=== PATIENT | male | born 1950 | race Caucasian/White ===

== ENCOUNTER → 2023-04-25 10:26 | Outpatient (BNVA) | payer MEDICARE, MEDICAID, SELFPAY | PROVIDERS: Family Provider Nurse Practitioner Family; PCP Nurse Practitioner Family; Visit Provider Nurse Practitioner Family | DX: I10 Essential (primary) hypertension (principal); Z12.5 Encounter for screening for malignant neoplasm of prostate | CPT/HCPCS: 80053; 80061; 84443; 85025; G0103 ==

== ENCOUNTER → 2023-05-02 11:25 | Outpatient (BNVA) | payer MEDICARE, SELFPAY | PROVIDERS: Family Provider Nurse Practitioner Family; PCP Nurse Practitioner Family; Referring Provider Nurse Practitioner Family; Visit Provider Internal Medicine Cardiovascular Disease | DX: R01.1 Cardiac murmur, unspecified (principal); Z01.818 Encounter for other preprocedural examination; F17.200 Nicotine dependence, unspecified, uncomplicated; I45.4 Nonspecific intraventricular block; I45.9 Conduction disorder, unspecified | CPT/HCPCS: 93005; 99204 ==

== ENCOUNTER 2023-05-16 11:01 | Outpatient (CLI) | payer MEDICARE, SELFPAY ==
--- NOTE | 2023-05-16 11:15 | USCV_ITS ---
Perfecto Hendrix Age: 72 Gender: M : 1950 Exam Date: 05/16/2023 11:10 Ordering Phys: Madison Villalobos MD ([email or web address]) Technologist: [place] [facility] [place]: chest pain BP: 132 / 73 HR: 69 Rhythm: Sinus Technical Quality: Technically difficult study MEASUREMENTS (Male / Female) Normal Values 2D ECHO LV Ejection Fraction MOD 2C 59.7 % LV Ejection Fraction 2C AL 61.0 % IVC Diameter 1.5 cm DOPPLER AV Peak Velocity 343.7 cm/s LVOT Peak Velocity 95.0 cm/s MV Area PHT 2.7 cm squared Mitral E to A Ratio 0.7 MV E' Velocity 36.0 cm/s Mitral E to MV E' Ratio 7.4 Mitral E to LV E' Lateral Ratio 6.0 Mitral E to LV E' Septal Ratio 9.9 TR Peak Velocity 163.0 cm/s TR Peak Gradient 10.6 mmHg FINDINGS Left Ventricle Normal left ventricular size, systolic function and wall thickness, with no regional wall motion abnormalities. Left ventricular ejection fraction is estimated at 65 %. Normal diastolic function. Right Ventricle Normal right ventricular size and systolic function. RVSP could not be calculated due to incomplete tricuspid regurgitation velocity profile. Right Atrium Normal right atrial size. Left Atrium Normal left atrial size. Mitral Valve Mild mitral annular calcification. No mitral valve stenosis. No mitral valve regurgitation. Aortic Valve Aortic valve not well visualized. Possibly moderate aortic valve stenosis, peak velcity 3 m/s, peak gradient 36 mm Hg, mean gradient 19 mmHg. DVI= 0.30. Mild aortic valve regurgitation. Tricuspid Valve Structurally normal tricuspid valve. No tricuspid valve regurgitation. No significant tricuspid valve regurgitation. Pulmonic Valve Pulmonic valve not well visualized. Pericardium No pericardial effusion. Aorta Aorta not well visualized. IVC Normal IVC dimension with >50% respiratory change of the inferior vena cava. CONCLUSIONS 1. This is a difficult study with no parasternal windows. 2. Normal left ventricular size, systolic function and wall thickness, with no regional wall motion abnormalities. Left ventricular ejection fraction is estimated at 65 %. Normal diastolic function. 3. Possibly moderate aortic valve stenosis, peak velcity 3 m/s, peak gradient 36 mm Hg, mean gradient 19 mmHg. DVI= 0.30. Mild aortic valve regurgitation. 4. No prior similar studies to compare. Madison Villalobos MD (Electronically Signed) Final Date: 21 May 2023 09:18 S
--- NOTE | 2023-05-16 12:15 | CT_ITS ---
WS: [id number] LDCT LUNG CANCER SCREENING TECHNIQUE: Noncontrast CT of the chest with coronal and sagittal reformatted images. CLINICAL INFORMATION: H53.9 - Unspecified visual disturbance COMPARISON: None. DLP: 72.40 mGy.cm DIvol: Mean CTDIvol: 1.40 (mGy) All CT scans at [facility] use at least one of these dose optimization techniques: automat ed exposure control; mA and/or kV adjustment per patient size (includes targeted exams where dose is matched to clinical indication); or iterative reconstruction. FINDINGS: Bronchiectasis RIGHT middle lobe and RIGHT lower lobe. Mild chronic emphysematous changes. Hypertrophic changes thoracic spine. Aortic calcification. Normal caliber thoracic aorta. No mediastinal or hilar lymphadenopathy. No axil teja lymphadenopathy. Small hepatic cysts in the liver. Normal GE junction. RIGHT adrenal calcification. Adrenal glands are normal. IMPRESSION: CT/CT lung screening [id number] LUNG-RADS: 1-Negative FOLLOW UP: 12 Month: Continue annual screening with LDCT
== END 2023-05-16 11:02 | disposition home or self-care (01) ==
LOC: RAD 11:01
PROVIDERS: Family Provider Nurse Practitioner Family; PCP Nurse Practitioner Family; Visit Provider Nurse Practitioner Family
DX: Z12.2 Encounter for screening for malignant neoplasm of respiratory organs (principal); F17.200 Nicotine dependence, unspecified, uncomplicated; H53.9 Unspecified visual disturbance; R01.1 Cardiac murmur, unspecified; R07.9 Chest pain, unspecified; I10 Essential (primary) hypertension
CPT/HCPCS: 71271; 93306

== ENCOUNTER → 2023-10-24 11:17 | Outpatient (BNVA) | payer MEDICARE, SELFPAY | PROVIDERS: Family Provider Nurse Practitioner Family; PCP Nurse Practitioner Family; Visit Provider Nurse Practitioner Family | DX: I35.0 Nonrheumatic aortic (valve) stenosis (principal) | CPT/HCPCS: 99214 ==

== ENCOUNTER 2023-12-13 20:36 | Emergency (ER) | payer MEDICARE, SELFPAY ==
[2023-12-13 20:37] VITALS: BP 121/71; PULSE 96; RESP 18; TEMP 36.3; O2SAT 95
--- NOTE | 2023-12-13 20:43 | W.ED.EXTPRO ---
HPI - Extremity Problem General: Chief complaint: Extremity Problem,Nontraumatic Stated complaint: right leg swollen hot pain Time Seen by Provider: 12/13/23 20:37 Source: patient Mode of arrival: wheelchair Limitations: no limitations History of Present Illness: Patient is a 73-year-old male presents to ED today for evaluation of swelling to his right lower extremity mainly around his calf over the past week or so. Patient is not sure if he bumped it on something . He has not noticed any bruising. He has no previous history of DVT. He has not noticed any color/temperature changes to the extremity. MD Complaint: extremity pain Onset (ago): day(s) Pain Consistency: constant Location: right and lower extremity Radiation: none Relieving factors: nothing Exacerbating factors: weight bearing and walking Associated symptoms: Reports no associated symptoms; Deny chest pain, fever(s) or rash Review of Systems Const: Denies: fever(s), chills, body aches, fatigue or malaise Card: Denies: chest pain Resp: Denies: dyspnea or hemoptysis GI: Denies: abdominal pain Musc: Reports: extremity pain and extremity swelling; Denies: neck pain, back pain, joint pain, joint swelling, joint redness, joint warmth, joint stiffness, limited range of motion, muscle cramps or muscle weakness Skin/Breast: Denies: rash Neuro: Denies: numbness in extremities, weakness in extremities, sensory changes or difficulty walking [facility] ED PFSH: Medical History Aortic stenosis IVCD (intraventricular conduction defect) Physical Exam Const: COMMON NORMALS: no acute distress, average body habitus, patient oriented x3, no limitations, alert and well nourished GENERAL APPEARANCE: cooperative ORIENTATION/CONSCIOUSNESS: Yes awake, Yes oriented to person, Yes oriented to place and Yes oriented to time Resp: COMMON NORMALS: normal respiratory effort and clear to auscultation bilaterally AUSCULTATION: clear to auscultation bilaterally Cardio: COMMON NORMALS: regular rate and regular rhythm RATE: regular rate RHYTHM: regular rhythm GI: COMMON NORMALS: Normal to inspection, nondistended, normoactive bowel sounds present, Soft to palpation, non-tender and no masses INSPECTION: Yes normal to inspection PALPATION: Yes Soft to palpation Extremity: COMMON NORMALS: full ROM, capillary refill normal and no joint enlargement GENERAL: Yes normal exam except as noted RIGHT LOWER EXTREMITY: Yes lower leg OTHER: swelling noted to R lower leg/calf when compared to L; TTP; no erythema/warmth; no palpable cords; distal pulses and cap refill and sensation are all intact; equivocal Ashvin's; calf circumference of R 14.5 cm; calf circumference of L 13.0 cm Neuro: COMMON NORMALS: patient oriented x3, moves all extremities, no focal motor deficits and no sensory deficits noted SENSORIUM/ORIENTATION: Yes alert, Yes oriented to person, Yes oriented to place and Yes oriented to time Skin: COMMON NORMALS: no rashes or lesions noted GENERAL SKIN EXAM: no rashes or lesions noted Course Vital Signs: Vital signs: Vital Signs Temperature 97.3 F L 12/13/23 20:37 Pulse Rate 91 12/13/23 21:30 Respiratory Rate 16 12/13/23 20:51 Blood Pressure 119/79 12/13/23 21:30 Pulse Oximetry 92 12/13/23 21:30 Oxygen Delivery Me thod Room Air 12/13/23 21:30 MDM - Extremity (Nontraumatic) Medical Decision Making Spoke to technical rep who performed venous US. Patient does have an acute DVT to his right lower extremity. He has no chest pain, shortness of breath, or difficulty breathing. Vitals are stable. At this time patient will be started on Eliquis. He was recommended to follow-up with his primary care provider soon as possible so they can go over length of treatment. Return ED precautions given. Medical Records I reviewed the patient's medical records. XR interpretation done by ED provider, pending radiology final review (US tech reporting acute DVT to R LE) Discharge Plan Discharge Patient Disposition: Home Clinical Impression: Right leg DVT Qualifiers: Affected thrombotic vein of extremity: unspecified lower extremity distal vein Chronicity: acute Qualified Code(s): I82.4Z1 - Acute embolism and thrombosis of unspecified deep veins of right distal lower extremity Condition: Stable Prescriptions: New Eliquis 5 mg tablet 5 mg PO BID Qty: 74 0RF Rx Instructions: Take two tabs (10mg) PO BID x 7 days then one tab (5mg) PO BID thereafter Discharge Orders: Discharge ED (Routine); Ordered 12/13/23 Ordered By: Aury Ballesteros Referrals: Caitlyn Corbin FNP-C [Primary Care Provider] - Ligia Zambrano FNP [Nurse Practitioner] - Patient Instructions: Apixaban (By mouth) (Eliquis), Deep Vein Thrombosis (DC) Activity Restrictions/Additional Instructions: As we discussed you were diagnosed with a blood clot/DVT to your right lower leg. You have been started on Eliquis. You were given a dose prior to discharge and you need to fill your prescription tomorrow and begin taking as directed. As we discussed I would like you to follow-up with your primary care provider later this week for further evaluation so she can go over length of treatment. As we discussed you need to return to the emergency department for onset of chest pain, shortness of breath, difficulty breathing, shortness of breath with minimal exertion, coughing up blood, passing out episodes, or any other concerns you may have. Coding Level of Care Code ED Baling Machine Operator for Cristhian Guallpa
--- NOTE | 2023-12-13 20:49 | USR_ITS ---
PROCEDURE INFORMATION: Exam: US Duplex Right Lower Extremity Veins, Limited Exam date and time: 12/13/2023 9:36 PM Age: 73 years old Clinical indication: Leg, lower; Patient HX: Right calf pain and swelling x 2 weeks. No known trauma. No history of dvt per patient. ; Additional info: Calf pain/swelling TECHNIQUE: Imaging protocol: Real-time duplex ultrasound of the right extremity with 2-D acosta scale, color Doppler flow and spectral waveform analysis including responses to compression and other maneuvers (when performed) with image documentation. Limited exam was focused on the right lower extremity veins. COMPARISON: No relevant prior studies available. FINDINGS: Right deep veins: Right posterior tibial veins in the calf are compressible. No color flow. Partially occlusive thrombus is identified in the right popliteal vein. Color flow is seen centrally in the lumen with a phasic waveform but there seems to be hypoechoic thrombus present which is partially occlusive. The right femoral vein is patent. Superficial veins: Greater saphenous vein at the saphenofemoral junction is patent without thrombus. Soft tissues: No significant finding. US/[place] [id number] IMPRESSION: 1. Positive for right lower extremity deep vein thrombosis. 2. Partially occlusive right popliteal vein thrombus as well as occlusive thrombus in the right posterior tibial and peroneal veins of the calf.
[2023-12-13 20:51] VITALS: BP 124/77; PULSE 96; RESP 16; O2SAT 93
[2023-12-13 21:27] VITALS: BP 124/77; O2SAT 92
[2023-12-13 21:30] VITALS: BP 119/79; PULSE 91; O2SAT 92
[2023-12-13] MEDS: apixaban 5 mg Tablet 10 MG PO (22:02)
== END 2023-12-13 22:15 | disposition home or self-care (01) ==
PROVIDERS: Emergency Provider Physician Assistant; PCP Nurse Practitioner Family
DX: I82.4Z1 Acute embolism and thrombosis of unspecified deep veins of right distal lower extremity (principal)
CPT/HCPCS: 93971; 99284

== ENCOUNTER → 2024-01-16 09:20 | Outpatient (BNVA) | payer MEDICARE, SELFPAY | PROVIDERS: PCP Nurse Practitioner Family; Visit Provider Nurse Practitioner Family | DX: I82.4Z1 Acute embolism and thrombosis of unspecified deep veins of right distal lower extremity (principal); F17.200 Nicotine dependence, unspecified, uncomplicated | CPT/HCPCS: 80053; 80061; 84443; 85025 ==

== ENCOUNTER 2025-01-19 13:21 | Emergency (ER) | payer MEDICARE, SELFPAY ==
[2025-01-19 13:30] VITALS: BP 127/76; PULSE 92; RESP 24; TEMP 36.4; O2SAT 92; BMI 21.9
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
[2025-01-19 13:54] LABS: Hematocrit 44.0 % (37-53); Hemoglobin 14.40 g/dL (11.27-16.99); Mean Corpuscular HGB Conc 32.7 g/dL (30-55); Mean Corpuscular Hemoglobin 30.4 pg (27-33); Mean Corpuscular Volume 93.0 fl (82-101); Nucleated Red Blood Cells % 0 %; Platelet Count 348 10^3/cmm (157-399); Red Blood Count 4.73 10^6/uL (3.85-5.65); White Blood Count 10.72 10^3/uL (3.29-11.43)
[2025-01-19] MEDS: tetanus-dipt-pertussis 0.5 mL SDV IM (14:05)
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
[2025-01-19 14:09] LABS: Alanine Aminotransferase 174 U/L (0-41); Albumin Level 3.7 g/dL (3.5-5.2); Alkaline Phosphatase 93 U/L (40-130); Anion Gap 16.6 (5-19); Aspartate Amino Transferase 244 U/L (0-40); Blood Urea Nitrogen 21 mg/dL (8-23); Carbon Dioxide 31 mmol/L (22-29); Chloride 95 mmol/L (98-107); Creatinine Clr Calc Pharmacy 60.5369; Globulin 3.9 g/dL (1.3-4.6); Glucose 138 mg/dL (65-115); Osmolality Calculated 291 mOsm/kg (285-295); Potassium 4.6 mmol/L (3.5-5.1); Sodium 138 mmol/L (136-145); Total Protein 7.6 g/dL (6.6-8.7)
[2025-01-19 14:12] LABS: Calcium 13.7 mg/dL (8.5-10.5)
--- NOTE | 2025-01-19 14:12 | ECG_ITS ---
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
[2025-01-19 14:17] VITALS: BP 99/64; PULSE 89; O2SAT 90
[2025-01-19] MEDS: calcitonin,salmon 200 unit/mL SDV 2mL 280 UNIT SUBCUT (14:39)
[2025-01-19 15:12] VITALS: RESP 24; O2SAT 91
[2025-01-19] MEDS: fentaNYL 50 mcg/mL INJ 2mL 25 MCG IVP (15:12)
[2025-01-19 15:46] VITALS: BP 110/71; PULSE 87; O2SAT 90
[2025-01-19 16:14] LABS: Glucose Urine UA Negative (Normal); Nitrate Urine Negative (Negative)
[2025-01-19 16:17] LABS: Add Urine Microscopic? YES
[2025-01-19 16:19] LABS: Specific Gravity, Urine 1.044 (1.005-1.030)
[2025-01-19 17:42] VITALS: BP 110/71; PULSE 87; RESP 21; O2SAT 92
== END 2025-01-19 17:47 ==
PROVIDERS: Emergency Provider Family Medicine; PCP Clinical Nurse Specialist Adult Health
DX: J93.9 Pneumothorax, unspecified (principal); S32.049A Unspecified fracture of fourth lumbar vertebra, initial encounter for closed fracture; S22.41XA Multiple fractures of ribs, right side, initial encounter for closed fracture; S22.081A Stable burst fracture of T11-T12 vertebra, initial encounter for closed fracture; R91.8 Other nonspecific abnormal finding of lung field; V03.10XA Pedestrian on foot injured in collision with car, pick-up truck or van in traffic accident, initial encounter; F17.210 Nicotine dependence, cigarettes, uncomplicated; Z85.828 Personal history of other malignant neoplasm of skin
CPT/HCPCS: 36415; 70450; 71045; 71260; 72125; 74177; 80053; 81001; 85025; 86850; 86900; 90715; 93005; 93010; 96372; 96374; 99285; J0630; J3010; J7030

== ENCOUNTER 2025-02-19 06:38 | Inpatient (IN) | payer MEDICARE, SELFPAY ==
[2025-02-19] VITALS (12 sets, daily range): BP systolic 94–107; BP diastolic 62–78; PULSE 98–110; RESP 16–31; TEMP 36.6–36.9; O2SAT 90–96; BMI 17.1; BMI 17.6
--- NOTE | 2025-02-19 06:40 | ECG_ITS ---
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 Measurements Intervals [place] Rate: 97 P: 62 WI: 146 QRS: 77 QRSD: 150 T: 52 QT: 375 QTc: 478 Interpretive Statements SINUS RHYTHM RIGHT BUNDLE BRANCH BLOCK [120+ ms QRS DURATION, UPRIGHT V1, 40+ ms S IN I/aVL/V4/V5/V6] Compared to ECG 01/19/2025 14:12:16 Right bundle-branch block now present Intraventricular conduction delay no longer present Electronically Signed On 02-19-2025 09:17:51 CDT by Ramses Kapoor M.D. [email or web address]
--- NOTE | 2025-02-19 06:42 | XRR_ITS ---
PROCEDURE INFORMATION: Exam: XR Chest Exam date and time: 02/19/2025 6:46 AM Age: 74 years old Clinical indication: Dyspnea and shortness of breath; Additional info: Dyspnea/cough TECHNIQUE: Imaging protocol: Radiologic exam of the chest. Views: 1 view. COMPARISON: CT chest abdpel w/*[id number] 01/19/2025 1:55 PM FINDINGS: Lungs: Persistent complete opacification of the right upper lobe. Small right pleural effusion with adjacent atelectasis is again seen. Pneumonia should be considered in the adequate clinical setting. Left lung is clear. No clear evidence of pneumothorax. Pleural spaces: See Lungs finding. Heart/Mediastinum: Stable cardiomediastinal silhouette. Bones/joints: Degenerative changes of the spine seen. XR/XR chest 1V portable [id number] IMPRESSION: 1. Unchanged complete opacification of the right upper lobe. 2. Persistent small right pleural effusion with adjacent airspace opacities, which may represent atelectasis or pneumonia in the adequate clinical setting.
--- OUTSIDE RECORDS SUMMARY | 2025-02-19 06:49 | XMS_ITS | Clinical Summary ---
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 Received in a container of formalin labeled Ruma -lymph node, FNA station 4R/mass is an aggregate of soft tissue, 2.5 x 1 x 0 0.3 x 0.1 cm. The specimen is submitted entirely in A1. B. Received in a container of formalin labeled Lambert -lung, RUL mass EB BX is an aggregate of soft tissue, 0.4 x 0.3 x 0.1 cm. The specimen is submitted entirely in B1. Jenny Fields 5 8:44 AM [facility] MICROSCOPIC DESCRIPTION Immunohistochemical stains for antibodies to AE1/AE3, CK7, CK20, p40, and TTF-1 are performed on A1 the tumor cells are positive for AE1/AE3, CK7 (subset), and p40, and are negative for CK20 and TTF-1. 5 8:44 AM [facility] OPERATIVE PROCEDURE 1: BRONCHOSCOPY 2: BRONCHOSCOPY WITH EBUS INCLUDING FLUOROSCOPIC GUIDANCE 5 8:44 AM [facility] COMMENT The [employer] voice-activated dictation system may have been used in the creation of this report. Inherent to this system is the possibility of errors in syntax, grammar, punctuation, or other areas that could impact interpretation. If there are interpretive questions about the report, please contact the performing pathologist. Unless gross only is specified in the diagnosis, the microscopic examination substantiates the above cited diagnosis. The performance characteristics of all immunohistochemical stains cited in this report (if any) were determined by the Diagnostic Immunohistochemistry Laboratory of [facility] in compliance with CLIA'88 regulations. Some of these tests rely on the use of analyte specific reagents and are subject to specific labeling requirements by the FDA. All controls show appropriate reactivity. This testing was developed by the [facility]ohist[facility] of [facility]. It has not been cleared or approved by the FDA. The FDA has determined that such clearance or approval is not necessary. 8:44 AM CDT [facility] Tissue ENTIRE LYMPH NODE / Unknown Collection / Unknown 01/23/2025 9:10 AM CDT 01/23/2025 11:11 AM CDT Comment:Verified by TB/JK No primary care provider on file. Tissue specimen (specimen) SPECIMEN FROM LUNG / Unknown 01/23/2025 9:30 AM CDT 01/23/2025 11:11 AM CDT Comment:Verified by TB/JK No primary care provider on file. us Ariana Carpio MD PATHOLOGY/CYTO LOGY ORDERABLES Final Result [facility] CLIA # [id number] [address] [place] [id number] * [place] ANES INSERT ENDOTRACHEAL AIRWAY (01/23/2025 8:58 AM CDT) Narrative Fani Goss CRNA - 01/23/2025 8:58 AM CDT Fani Goss CRNA 01/23/2025 9:08 AM Airway Date/Time: 01/23/2025 8:58 AM Location: OR Plan: routine intubation Patient Identity Confirmed by: Verbally with patient and armband Airway: not difficult Staffing Performed: SPECIALIST ICU/CAA Authorized by: Justus Gomez MD Performed by: Fani Goss CRNA County Court Judge: Justus Gomez MD Indications and Patient Condition: Indications for Airway Management: Anesthesia Sedation Level: general anesthesia Preoxygenated: yes Patient Position: Sniffing Mask Difficulty Assessment: 2 - vent by mask + OA or adjuvant +/- NMBA Oral Airway: 100mm Plan to extubate at end of case: Yes Final Airway Details: Final Airway Type: Endotracheal airway ETT Cuffed: Yes Technique Used for Successful ETT Placement: Direct laryngoscopy Devices/Methods Used in Placement: Intubating stylet Blade Type: straight blade Blade Size: 2 Insertion Site: Oral ETT Size (mm): 8.0 Measured from: Teeth Tube secured with: Tape Placement Verified by: auscultation, end tidal CO2 and chest rise Cormack-Lehane Classification: Grade I - full view of glottis Number of Attempts at Approach: 1 Additional Procedure Information: atraumatic us Justus Gomez MD PROCEDURE/MINOR SURGIC AL ORDERABLES Final Result * XR THORACOLUMBAR SPINE 1 VW (01/22/2025 2:27 PM CDT) Anatomical Region Laterality Modality Spine Computed Radiogr aphy 01/22/2025 2:27 PM CDT Impressions 01/22/2025 2:31 PM CDT IMPRESSION: Mild anterolisthesis of L4-5. He will body heights appear grossly maintained. Vertebral body fractures better seen on prior CT. Narrative 01/22/2025 2:31 PM CDT Exam: XR THORACOLUMBAR SPINE 1 VW Date/Time of Exam: 01/22/2025 2:27 PM Reason For Exam: Fracture. Diagnosis: Blunt trauma to chest, initial encounter; Lung mass; Closed fracture of multiple ribs of right side, initial encounter; Hydropneumothorax; Closed fracture of twelfth thoracic vertebra, unspecified fracture morphology, initial encounter ([facility]). Comparison: January 19. Procedure Note Marty De León MD - 01/22/2025 Exam: XR THORACOLUMBAR SPINE 1 VW Date/Time of Exam: 01/22/2025 2:27 PM Reason For Exam: Fracture. Diagnosis: Blunt trauma to chest, initial encounter; Lung mass; Closed fracture of multiple ribs of right side, initial encounter; Hydropneumothorax; Closed fracture of twelfth thoracic vertebra, unspecified fracture morphology, initial encounter ([facility]). Comparison: January 19. IMPRESSION: Mild anterolisthesis of L4-5. He will body heights appear grossly maintained. Vertebral body fractures better seen on prior CT. Zina Jack [employer] DIAGNOSTIC IMAGING ORDERA BLES Final Result * (ABNORMAL) POC GLUCOSE (01/20/2025 6:57 PM CDT) Only the most recent of4 resultswithin the time period is included. GLUCOSE POC 115(H) 74 - 99 mg/dL 01/20/2025 6:57 PM CDT [facility] SPECIMEN SOURCE, GLUCOSE POC Capillary 01/20/2025 6:57 PM CDT [facility] Blood, whole 01/20/2025 6:57 PM CDT 01/21/2025 9:41 AM CDT Andrew Lam DO POINT OF CARE TESTING Final Resu lt [facility] CLIA # [id number] [address] [place], [place] [address] * ECHO COMPLETE - CONTRAST AND STRAIN IF INDICATED (01/20/2025 1:13 PM CDT) [facility] EJECTION FRACTION 65 INTERFACE SYSTEM 01/20/2025 12:1 9 PM CDT Narrative INTERFACE SYSTEM - 01/20/2025 5:57 PM CDT [facility] Echocardiography Laboratory [address] [place] [address] Transthoracic Echocardiography Patient: Perfecto Hendrix Study ID: ECHO COMPLETE - L Gender: M : 1950 Age: 74 Room: [facility] Study 01/20/2025 Pt Inpatient Date: Status: Study 12:19:12 PM [facility] #: [id number] Time: Ordering:Andrew Lam ([facility]) Cotton Roll Packer: Lasha Martinez [facility] Transcribing Machine Mechanic:TitaDilia monk Indications and History: murmur, trauma. Summary and Conclusion: - Left ventricle: The cavity size is normal. Wall thickness is normal. Global systolic function is normal. For Epic reporting: the left ventricular ejection fraction is 65% by visual assessment. No diagnostic regional wall motion abnormality identified. Diastolic function is indeterminate. - Right ventricle: The cavity size is normal. Systolic function is normal. Systolic pressure is not obtained. - Aortic valve: The leaflets are thickened and calcified. There is moderate to severe stenosis. There is trivial to mild regurgitation. The peak systolic velocity is 305.61cm/sec. The mean systolic gradient is 27mm Hg. Aortic valve area by VTI method is 1.0 cm2. DVI 0.27. - Mitral valve: The annulus is moderately to severely calcified. The leaflets are mildly thickened and mildly calcified. - Tricuspid valve: There is trivial to mild regurgitation. Comparison: No previous study was available for comparison. Procedure information: No prior study is available for comparison. Study status: Routine. Procedure: A transthoracic echocardiogram was performed. Image quality was adequate. The study was technically limited due to poor acoustic window availability. Scanning was performed from the parasternal, apical, subcostal, and suprasternal notch acoustic windows. Study components: M-mode, 2D, complete spectral Doppler, and color Doppler. Height: 177.8cm. Height: 70in. Weight: 69.7kg. Weight: 153.7lb. BMI: 22kg/m^2. BSA: 1.85m^2. Blood pressure: 110/60 Study date: 01/20/2025. Study time: 12:19 PM. Location: ICU/CCU Cardiac Anatomy: LEFT VENTRICLE: The cavity size is normal. Wall thickness is normal. Global systolic function is normal. For Epic reporting: the left ventricular ejection fraction is 65% by visual assessment. No diagnostic regional wall motion abnormality identified. Diastolic function is indeterminate. RIGHT VENTRICLE: The cavity size is normal. Systolic function is normal. Systolic pressure is not obtained. LEFT ATRIUM: The atrium is normal in size. RIGHT ATRIUM: The atrium is normal in size. ATRIAL SEPTUM: No obvious PFO or ASD identified by 2D imaging and color Doppler. AORTIC VALVE: Not well visualized. The leaflets are thickened and calcified. Mobility is restricted. There is moderate to severe stenosis. There is trivial to mild regurgitation. MITRAL VALVE: The annulus is moderately to severely calcified. The leaflets are mildly thickened and mildly calcified. There is no evidence for stenosis. There is no significant regurgitation. TRICUSPID VALVE: Structurally normal valve. Mobility is unrestricted. There is no evidence for stenosis. There is trivial to mild regurgitation. PULMONIC VALVE: Not well visualized. The valve appears to be grossly normal. There is no evidence for stenosis. There is no significant regurgitation. PERICARDIUM: There is no pericardial effusion. AORTA: Aortic root: The root is not dilated. Aortic arch: The vessel is not dilated. Measurements Left ventricle Value LVOT continued Value KELLY, LAX 3.6 cm SV 49 ml ESD, LAX 2.7 cm Qs 11.4 L/min KELLY/bsa, LAX 1.9 cm/m^2 Qs/bsa 6.1 L/(min-m^2) ESD/bsa, LAX 1.5 cm/m^2 SV/bsa 27 ml/m^2 FS, LAX 25 % FS, LAX chord 25 % Right ventricle Value ESD major ax, A4C 5.4 cm KELLY, LAX 3.0 cm ESD/bsa major ax, A4C 2.9 cm/m^2 KELLY 3.0 cm KELLY minor ax, A4C 5.4 cm TAPSE, 2D 1.9 cm KELLY/bsa minor ax, A4C 2.9 cm/m^2 TAPSE, MM 1.9 cm KELLY major ax, A2C 7.5 cm S' lateral 4.8 cm/sec KELLY/bsa major ax, A2C 4.0 cm/m^2 IVS, ED 1.7 cm Left atrium Value ESD 2.7 cm AP dim, ES 3.1 cm ESD/bsa 1.5 cm/m^2 AP dim index, ES 1.7 cm/m^2 FS 25 % SI dim, A4C 6.1 cm PW, ED 1.3 cm Area ES, A4C 17 cm^2 IVS/PW, ED 1.34 Vol, ES, 1-p A4C 35 ml EDV 55 ml Vol/bsa, ES, 1-p A4C 19 ml/m^2 ESV 27 ml Vol, ES, A/L 39 ml EF 50 % Vol/bsa, ES, A/L 21 ml/m^2 SV 27 ml EDV/bsa 30 ml/m^2 Right atrium Value ESV/bsa 15 ml/m^2 Area, ES 12 cm^2 SV/bsa 15 ml/m^2 Area, ES, A4C 12 cm^2 SV, 1-p A2C 28 ml SV/bsa, 1-p A2C 15 ml/m^2 Aortic valve Value EDV, 1-p A4C 104 ml ISRAEL, plan 0.92 cm^2 ESV, 1-p A4C 17 ml ISRAEL/bsa, plan 0.5 cm^2/m^2 EF, 1-p A4C 83 % Peak v, S 305.61 cm/sec SV, 1-p A4C 87 ml VTI, S 49.9 cm EDV/bsa, 1-p A4C 56 ml/m^2 Mean grad, S 27 mm Hg ESV/bsa, 1-p A4C 9 ml/m^2 Peak grad, S 37 mm Hg SV/bsa, 1-p A4C 47 ml/m^2 LVOT/AV, VTI ratio 0.33 EDV, MM Teich. 55 ml ISRAEL, VTI 0.99 cm^2 EF, MM Teich. 50 % ISRAEL/bsa, VTI 0.53 cm^2/m^2 EDV/bsa, MM Teich. 30 ml/m^2 LVOT/AV, Vpeak ratio 0.27 EF, MM on 2D Teich. 50 % ISRAEL, Vmax 0.82 cm^2 E', lat mari, TDI 5.7 cm/sec ISRAEL/bsa, Vmax 0.44 cm^2/m^2 E/e', lat mari, TDI 7 E', med mari, TDI 4.2 cm/sec Mitral valve Value E/e', med mari, TDI 10 Peak E 41.68 cm/sec E', avg, TDI 4.9 cm/sec Peak A 69.19 cm/sec E/e', avg, TDI 8 Decel slope 226.88 cm/s^2 Decel time 184 ms LVOT Value Peak E/A ratio 0.6 Diam, S 2.0 cm Vena contracta width 3.0 cm Area 3.0 cm^2 Peak bladimir, S 83.17 cm/sec Aortic root Value VTI, S 16.4 cm Root diam 2.5 cm Peak grad, S 3 mm Hg Root diam/bsa 1.3 cm/m^2 Legend: (L) and (H) daphne values outside specified reference range. [facility] are accredited with the Intersocietal Accreditation Commission - Echocardiography. Prepared and Electronically Authenticated Franklin Trimble Confirmed 01/20/2025 17:57 Procedure Note Franklin Trimble MD - 01/20/2025 [facility] Echocardi[facility] Laboratory [address] [place] [id number] Transthoracic Echocardiography Patient: Perfecto Hendrix Study ID: ECHO COMPLETE- L Gender: Mukesh : 1950 Age: 74 Room: [facility] Study 01/20/2025 Pt Inpatient Date: Status: Study 12:19:12 PM CSN #: [id number] Time: Ordering:Andrew Lam ([facility]) Cotton Roll Packer: Lasha Martinez [facility] Transcribing Machine Mechanic:Dilia Pradhan Indications and History: murmur, trauma. Summary and Conclusion: - Left ventricle: The cavity size is normal. Wall thickness is normal.Global systolic function is normal. For Epic reporting: the left ventricular ejection fraction is 65% by visual assessment. No diagnostic regionalwall motion abnormality identified. Diastolic function is indeterminate. - Right ventricle: The cavity size is normal. Systolic function isnormal. Systolic pressure is not obtained. - Aortic valve: The leaflets are thickened and calcified. There ismoderate to severe stenosis. There is trivial to mild regurgitation. The peaksystolic velocity is 305.61cm/sec. The mean systolic gradient is 27mm Hg.Aortic valve area by VTI method is 1.0 cm2. DVI 0.27. - Mitral valve: The annulus is moderately to severely calcified. Theleaflets are mildly thickened and mildly calcified. - Tricuspid valve: There is trivial to mild regurgitation. Comparison: No previous study was available for comparison. Procedure information: No prior study is available for comparison.Study status: Routine. Procedure: A transthoracic echocardiogram wasperformed. Image quality was adequate. The study was technically limited due topoor acoustic window availability. Scanning was performed from theparasternal, apical, subcostal, and suprasternal notch acoustic windows.Study components: M-mode, 2D, complete spectral Doppler, and color Doppler. Height: 177.8cm. Height: 70in. Weight: 69.7kg. Weight: 153.7lb.BMI: 22kg/m^2. BSA: 1.85m^2. Blood pressure: 110/60 Study date: 01/20/2025. Study time: 12:19 PM. Location: ICU/CCU Cardiac Anatomy: LEFT VENTRICLE: The cavity size is normal. Wall thickness is normal.Global systolic function is normal. For Epic reporting: the left ventricularejection fraction is 65% by visual assessment. No diagnostic regional wall motion abnormality identified. Diastolic function is indeterminate. RIGHT VENTRICLE: The cavity size is normal. Systolic function isnormal. Systolic pressure is not obtained. LEFT ATRIUM: The atrium is normal in size. RIGHT ATRIUM: The atrium is normal in size. ATRIAL SEPTUM: No obvious PFO or ASD identified by 2D imaging and color Doppler. AORTIC VALVE: Not well visualized. The leaflets are thickened andcalcified. Mobility is restricted. There is moderate to severe stenosis. Thereis trivial to mild regurgitation. MITRAL VALVE: The annulus is moderately to severely calcified. Theleaflets are mildly thickened and mildly calcified. There is no evidence forstenosis. There is no significant regurgitation. TRICUSPID VALVE: Structurally normal valve. Mobility isunrestricted. There is no evidence for stenosis. There is trivial to mildregurgitation. PULMONIC VALVE: Not well visualized. The valve appears to be grosslynormal. There is no evidence for stenosis. There is no significantregurgitation. PERICARDIUM: There is no pericardial effusion. AORTA: Aortic root: The root is not dilated. Aortic arch: The vessel is not dilated. Measurements Left ventricle Value LVOT continued Value KELLY, LAX 3.6 cm SV 49 ml ESD, LAX 2.7 cm Qs 11.4 L/min KELLY/bsa, LAX 1.9 cm/m^2 Qs/bsa 6.1L/(min-m^2) ESD/bsa, LAX 1.5 cm/m^2 SV/bsa 27ml/m^2 FS, LAX 25 % FS, LAX chord 25 % Right ventricle Value ESD major ax, A4C 5.4 cm KELLY, LAX 3.0 cm ESD/bsa major ax, A4C 2.9 cm/m^2 KELLY 3.0 cm KELLY minor ax, A4C 5.4 cm TAPSE, 2D 1.9 cm KELLY/bsa minor ax, A4C 2.9 cm/m^2 TAPSE, MM 1.9 cm KELLY major ax, A2C 7.5 cm S' lateral 4.8cm/sec KELLY/bsa major ax, A2C 4.0 cm/m^2 IVS, ED 1.7 cm Left atrium Value ESD 2.7 cm AP dim, ES 3.1 cm ESD/bsa 1.5 cm/m^2 AP dim index, ES 1.7cm/m^2 FS 25 % SI dim, A4C 6.1 cm PW, ED 1.3 cm Area ES, A4C 17 cm^2 IVS/PW, ED 1.34 Vol, ES, 1-p A4C 35 ml EDV 55 ml Vol/bsa, ES, 1-p A4C 19ml/m^2 ESV 27 ml Vol, ES, A/L 39 ml EF 50 % Vol/bsa, ES, A/L 21ml/m^2 SV 27 ml EDV/bsa 30 ml/m^2 Right atrium Value ESV/bsa 15 ml/m^2 Area, ES 12 cm^2 SV/bsa 15 ml/m^2 Area, ES, A4C 12 cm^2 SV, 1-p A2C 28 ml SV/bsa, 1-p A2C 15 ml/m^2 Aortic valve Value EDV, 1-p A4C 104 ml ISRAEL, plan 0.92 cm^2 ESV, 1-p A4C 17 ml ISRAEL/bsa, plan 0.5cm^2/m^2 EF, 1-p A4C 83 % Peak v, S 305.61cm/sec SV, 1-p A4C 87 ml VTI, S 49.9 cm EDV/bsa, 1-p A4C 56 ml/m^2 Mean grad, S 27 mm Hg ESV/bsa, 1-p A4C 9 ml/m^2 Peak grad, S 37 mm Hg SV/bsa, 1-p A4C 47 ml/m^2 LVOT/AV, VTI ratio 0.33 EDV, MM Teich. 55 ml ISRAEL, VTI 0.99 cm^2 EF, MM Teich. 50 % ISRAEL/bsa, VTI 0.53cm^2/m^2 EDV/bsa, MM Teich. 30 ml/m^2 LVOT/AV, Vpeak ratio 0.27 EF, MM on 2D Teich. 50 % ISRAEL, Vmax 0.82 cm^2 E', lat mari, TDI 5.7 cm/sec ISRAEL/bsa, Vmax 0.44cm^2/m^2 E/e', lat mari, TDI 7 E', med mari, TDI 4.2 cm/sec Mitral valve Value E/e', med mari, TDI 10 Peak E 41.68cm/sec E', avg, TDI 4.9 cm/sec Peak A 69.19cm/sec E/e', avg, TDI 8 Decel slope 226.88cm/s^2 Decel time 184 ms LVOT Value Peak E/A ratio 0.6 Diam, S 2.0 cm Vena contracta width 3.0 cm Area 3.0 cm^2 Peak bladimir, S 83.17 cm/sec Aortic root Value VTI, S 16.4 cm Root diam 2.5 cm Peak grad, S 3 mm Hg Root diam/bsa 1.3cm/m^2 Legend: (L) and (H) daphne values outside specified reference range. [facility] are accredited with the[facility] health [facility] Accreditation Commission - Echocardiography. Prepared and Electronically Authenticated Franklin Trimble Confirmed 01/20/2025 17:57 us Andrew Lam DO US ORDERABLES Final Result INTERFACE SYSTEM Refer to clinic/hospital department * XR CHEST PA OR AP 1 VW (01/20/2025 12:20 AM CDT) Anatomical Region Laterality Modality Chest Computed Radiogr aphy 01/20/2025 12:0 1 AM CDT Impressions 01/20/2025 11:32 AM CDT IMPRESSION: Please see below. Exam: XR CHEST PA OR AP 1 VW Date/Time of Exam: 01/20/2025 12:20 AM Reason For Exam: Trauma. Diagnosis: Blunt trauma to chest, initial encounter; Lung mass; Closed fracture of multiple ribs of right side, initial encounter; Hydropneumothorax; Closed fracture of twelfth thoracic vertebra, unspecified fracture morphology, initial encounter ([facility]). Findings: Comparison is made to the chest x-ray from [facility] on 01/19/2025 at 1339. There is a questionable trace residual right pneumothorax on the current exam.. There is dense opacification of the right upper lobe. There is mild streaky opacity in the right base. The there is an incompletely visualized rounded opacity in the right perihilar region suspicious for a mass. The left lung is clear. The cardiac silhouette is not enlarged. The pulmonary vessels are unremarkable. The bony thorax is grossly intact. IMPRESSION: 1. Trace residual right pneumothorax. 2. Near complete right upper lobe atelectasis. 3. Incompletely visualized rounded right perihilar opacity suspicious for a mass. Narrative Procedure Note Peyton Renner MD - 01/20/2025 IMPRESSION: Please see below. Exam: XR CHEST PA OR AP 1 VW Date/Time of Exam: 01/20/2025 12:20 AM Reason For Exam: Trauma. Diagnosis: Blunt trauma to chest, initial encounter; Lung mass; Closed fracture of multiple ribs of right side, initial encounter; Hydropneumothorax; Closed fracture of twelfth thoracic vertebra, unspecified fracture morphology, initial encounter ([facility]). Findings: Comparison is made to the chest x-ray from [facility] on 01/19/2025 at 1339. There is a questionable trace residual right pneumothorax on the current exam.. There is dense opacification of the right upper lobe. There is mild streaky opacity in the right base. The there is an incompletely visualized rounded opacity in the right perihilar region suspicious for a mass. The left lung is clear. The cardiac silhouette is not enlarged. The pulmonary vessels are unremarkable. The bony thorax is grossly intact. IMPRESSION: 1. Trace residual right pneumothorax. 2. Near complete right upper lobe atelectasis. 3. Incompletely visualized rounded right perihilar opacity suspicious for a mass. us Andrew Beam DO DIAGNOSTIC IMAGING ORDERABLES Fi nal Result * EKG 12-LEAD (01/19/2025 9:23 PM CDT) 01/19/2025 9:23 PM CDT Narrative INTERFACE SYSTEM - 01/20/2025 6:40 AM CDT [address] [address] Test Date: 2025-01-19 Pat Name: [facility] UNKNOWN Department: 11 Room: 02 Gender: Male Sheriff Deputy: [email or web address] : Requested By: Order Number: [id number] Reading MD: Mckenzie Harrington Measurements Intervals [place] Rate: 91 P: 68 MN: 148 QRS: 71 QRSD: 138 T: 51 QT: 394 QTc: 484 Interpretive Statements Normal sinus rhythm Nonspecific intraventricular block Abnormal ECG Electronically Signed On 01-20-2025 6:40:32 CDT by Mckenzie Harrington Procedure Note Provider, Historical - 01/20/[address] [address] Test Date: 2025-01-19 Pat Name: [facility] UNKNOWN Department: 11 Room: 02 02 Gender: Male Sheriff Deputy: [email or web address] : Requested By: Order Number: [id number] Reading MD: Mckenzie Harrington Measurements Intervals [place] Rate: 91 P: 68 MN: 148 QRS: 71 QRSD: 138 T: 51 QT: 394 QTc: 484 Interpretive Statements Normal sinus rhythm Nonspecific intraventricular block Abnormal ECG Electronically Signed On 01-20-2025 6:40:32 CDT by Mckenzie Harrington us Andrew Beam DO ECG ORDERABLES Final Result INTERFACE SYSTEM Refer to clinic/hospital department * OSMOLALITY (01/19/2025 9:15 PM CDT) Pathologist [facility] OSMOLALITY [phone] - 295 mOsm/kg 01/19/2025 10:20 PM CDT [facility] Blood Venipuncture / Unknown 01/19/2025 9:15 PM CDT 01/19/2025 9:45 PM CDT us Andrew Beam DO CHEMISTRY ORDERABLES Final Resul t Performing Organization Address [facility] de Phone Number [facility] CLIA # [id number] 12[address] [facility] [place] [id number] * VERIFICATION BLOOD GROUP (01/19/2025 7:28 PM CDT) ABO GROUP O 01/19/2025 7:47 PM CDT [facility] RH (D) TYPE Negative 01/19/2025 7:47 PM CDT [facility] Blood Venipuncture / Unknown 01/19/2025 7:28 PM CDT 01/19/2025 7:33 PM CDT us Dez Wheat MD BLOOD BANK ORDERAB LES Final Result Performing Organization Address City/[facility]/ZIP Co de Phone Number [facility] [employer] [facility] CLIA#[id number] [address] [place] [id number], * LACTIC ACID (01/19/2025 7:26 PM CDT) [facility] LACTIC ACID 1.7 <=2.0 mmol/L 01/19/2025 7:58 PM CDT [facility] Blood Venipuncture / Unknown 01/19/2025 7:26 PM CDT 01/19/2025 7:34 PM CDT Dez Wheat MD CHEMISTRY ORDERABL ES Final Result [facility] CLIA # [id number] [address] [address] * PTT (01/19/2025 7:26 PM CDT) [facility] PTT 32.4 24.8 - 37.2 seconds 01/19/2025 8:06 PM CDT [facility] Blood Venipuncture / Unknown 01/19/2025 7:26 PM CDT 01/19/2025 7:34 PM CDT Narrative [facility] - 01/19/2025 8:06 PM CDT Therapeutic Range: Hi-level PE/DVT heparin protocol 80.1 - 95.0 sec Lo-level PE/DVT heparin protocol 70.1 - 85.0 sec Cardiac Heparin Protocol 70.1 - 100.0 sec us Dez Wheat MD HEMATOLOGY ORDERAB LES Final Result [facility] CLIA # [id number] [address] [address] * (ABNORMAL) PROTIME-INR (01/19/2025 7:26 PM CDT) [facility] PROTIME 15.6(H) 12.7 - 14.9 Seconds 01/19/2025 8:06 PM CDT [facility] INR 1.2 0.8 - 1.2 01/19/2025 8:06 PM CDT [facility] Blood Venipuncture / Unknown 01/19/2025 7:26 PM CDT 01/19/2025 7:34 PM CDT Narrative [facility] - 01/19/2025 8:06 PM CDT Expected Values for INR: DVT/PE Goal INR 2.5; range 2.0 - 3.0 Valve Replacement Tissue Goal INR 2.5; range 2.0 - 3.0 Valve Replacement Mechanical Goal INR 3.0; range 2.5 - 3.5 POST-ID Goal INR 2.5; range 2.0 - 3.0 or Goal INR 3.0; range 2.5 - 3.5 Atrial Fibrillation Goal INR 2.5; range 2.0 - 3.0 Ischemic Stroke Goal INR 2.5; range 2.0 - 3.0 Dez Wheat MD HEMATOLOGY ORDERAB LES Final Result [facility] CLIA # [id number] [address] [place] [address] [place] [address] * TYPE AND SCREEN (01/19/2025 7:26 PM CDT) [facility] ABO GROUP O 01/19/2025 8:19 PM CDT [facility] RH (D) TYPE Negative 01/19/2025 8:19 PM CDT [facility] ANTIBODY SCREEN Negative 01/19/2025 8:19 PM CDT [facility] Blood Venipuncture / Unknown 01/19/2025 7:26 PM CDT 01/19/2025 7:33 PM CDT Dez Wheat MD BLOOD BANK ORDERAB LES Edited Result - Final Performing Organization Address [facility]/ZIP Co de Phone Number [facility] CLIA#[id number] [address] [place] [address], * ETHANOL LEVEL (01/19/2025 7:26 PM CDT) ETHANOL <10.10 <10.10 mg/dL 01/19/2025 8:09 PM CDT [facility] ETHANOL % <0.01 <=0.01 %w/v 01/19/2025 8:09 PM CDT [facility] Blood Venipuncture / Unknown 01/19/2025 7:26 PM CDT 01/19/2025 7:34 PM CDT Dez Wheat MD CHEMISTRY ORDERABL ES Final Result Performing Organization Address [facility] Co de Phone Number [facility] [employer] [facility] CLIA # [id number] [address] [address] from Last 3 Months Insurance [facility] [id number] MEDICAID PENDING [place] Advance Directives For more information, please contact: [phone] * Full Code (Latest Code Status on File) Date Activated Date Inactivated Comments 01/23/2025 8:19 AM 01/31/2025 1:24 PM * Full Code Date Activated Date Inactivated Comments 01/19/2025 9:03 PM 01/23/2025 8:19 AM
--- OUTSIDE RECORDS SUMMARY | 2025-02-19 06:49 | XMS_ITS | Encounter Summary ---
Author Organization [facility] Address [address] [place] [address] Care Team Providers Care School Transportation Director Name Role Phone Unavailable Primary Care Provider Unavailabl e Encounter Details Date Type Department Care Team (Late st Contact Info) Description 01/27/2025 Results Follow-Up [facility] Pulmonology [address] [place] [address] Ariana Mckeon MD [address] [place] [address] PATHOLOGY Social History Tobacco Use Types Packs/Day Years Used Date Smoking Tobacco: Every Day Cigarettes 1.5 57.1 Started: 01/20/1967 Sex and Gender Information Value Date Recorded Sex Assigned at Not on file Legal Sex Male 11:17 PM [employer] Gender Identity Not on file Sexual Orientation Not on file documented as of this encounter Plan of Treatment Upcoming Encounters Date Type Department Care Team (Late st Contact Info) Description 02/20/2025 11:15 AM CDT Office Visit [facility] Neurosurgery [address] [place] [address] Zina Jack, [employer] [address] [place] [address] documented as of this encounter Visit Diagnoses Not on filedocumented in this encounter
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
[2025-02-19 07:00] LABS: ABG PCO2 50.8 mmHg (35-45); ABG PH Result 7.49 (7.35-7.45); Alveolar-Arterial Oxygen Gradi 4.8 mmHg (5-10); Arterial Blood Gas Hematocrit 40.6 % (42-52); Blood Gas Allen Test Pos; Blood Gas LPM 7.0 %; Blood Gas Operator Identificat WALCI; Blood Gas Sample Site Radial, right; Blood Gas Sample Type Arterial; Carboxyhemoglobin 1.4 %THgb (0.4-20.1); Glucose Level-ABG 87.0 mg/dL (70-115); HCO3 ABG 39.0 mmol/L (22-26); Ionized Calcium Level - ABG 1.8 mmol/L (1.1-1.4); Methemoglobin 0.5 % (0.4-1.5); Oxygen Saturation ABG 89.5; PO2 ABG 52.2 mmHg (80.0-100.0); Potassium Level - ABG 3.6 mmol/L (3.5-5.0); Sodium Level - ABG 137.0 mmol/L (131-143)
[2025-02-19] MEDS: cefTRIAXone 1,000 mg SDV 1000 MG IVP (07:17)
[2025-02-19 07:22] LABS: Hematocrit 42.9 % (37-53); Hemoglobin 13.50 g/dL (11.27-16.99); Mean Corpuscular HGB Conc 31.5 g/dL (30-55); Mean Corpuscular Hemoglobin 29.6 pg (27-33); Mean Corpuscular Volume 94.1 fl (82-101); Nucleated Red Blood Cells % 0 %; Platelet Count 381 10^3/cmm (157-399); Red Blood Count 4.56 10^6/uL (3.85-5.65); White Blood Count 23.13 10^3/uL (3.29-11.43)
[2025-02-19 07:36] LABS: Lactic Sepsis W/Reflex 2.2 mmol/L (0.5-2.2)
[2025-02-19 07:45] LABS: Alanine Aminotransferase 11 U/L (0-41); Albumin Level 3.0 g/dL (3.5-5.2); Alkaline Phosphatase 131 U/L (40-130); Anion Gap 14.4 (5-19); Aspartate Amino Transferase 16 U/L (0-40); Blood Urea Nitrogen 20 mg/dL (8-23); Calcium 13.5 mg/dL (8.5-10.5); Carbon Dioxide 35 mmol/L (22-29); Chloride 94 mmol/L (98-107); Creatinine Clr Calc Pharmacy 63.0498; Globulin 4.0 g/dL (1.3-4.6); Glucose 86 mg/dL (65-115); NT Pro B Type Natriuretic Pept 1003 pg/mL (0-125); Osmolality Calculated 290 mOsm/kg (285-295); Potassium 4.4 mmol/L (3.5-5.1); Sodium 139 mmol/L (136-145); Total Protein 7.0 g/dL (6.6-8.7)
--- NOTE | 2025-02-19 07:45 | CT_ITS ---
WS: [id number] CT CHEST ANGIOGRAPHY WITH REFORMATS HISTORY: Lung cancer pneumonia hypoxia TECHNIQUE: Contiguous axial images are obtained through the chest during arterial injection of intravenous contrast. Images are reconstructed to evaluate the pulmonary arteries. MIP imaging also reviewed. All CT scans at [facility] use at least one of these dose optimization techniques: automated exposure control; mA and/or kV adjustment per patient size (includes targeted exams where dose is matched to clinical indication); or iterative reconstruction. CONTRAST: Omnipaque 350; 100 mL IV. DLP: 245.44 mGy.cm COMPARISON: 01/19/2025 Good opacification of the pulmonary arteries. Normal central, main and lobar branches without emboli. There is tumor encasing the RIGHT hilar bronchovascular structures with encasement extending into the upper, middle and lower lobes. No emboli identified. Volume loss in the RIGHT thorax due to RIGHT upper lobe collapse. There is tumor obstructing the proximal RIGHT upper lobe bronchus. There also appears to be tumor extending into the proximal RIGHT lower lobe bronchus. Very large RIGHT hilar mass with extension into the RIGHT upper lobe. There is bulging along the fissure. There is postobstructive atelectasis in the RIGHT upper and RIGHT lower lobes. Atelectatic changes and partial collapse RIGHT lower lobe. Small RIGHT pleural effusion. Nodular opacification LEFT lower lobe is new. There is mild tree-in-bud airspace disease in the LEFT lower lobe. This is all new since the prior study. Moderate atherosclerosis aorta. Heart size is normal. LEFT ventricular hypertrophy is suspected. No RIGHT heart strain. Lymph nodes in the mediastinum and RIGHT hilum. These lymph nodes are enlarged. Adenopathy in the AP window. Mild heterogeneity within the liver. There is scattered nodules of decreased attenuation in the RIGHT and LEFT lobes. Nonobstructing calcification RIGHT renal pelvis. Patient has known right-sided rib fractures which are recently described. No new rib fractures. Advanced hypertrophic osteophyte disease in the thoracic spine. CT/CT angio chest PE protcl [id number] IMPRESSION: 1. No pulmonary embolism. 2. Patient has a known large mass centered in the RIGHT hilum with extension i nto the mediastinum and RIGHT upper lobe with postobstructive RIGHT upper lobe collapse. 3. Postobstructive atelectasis RIGHT lower lobe with a small RIGHT lower lobe effusion. 4. Tumor versus secretions in the proximal RIGHT upper lobe bronchus. Addition al tumor versus secretions in the proximal RIGHT lower lobe bronchus. 5. Mediastinal and hilar adenopathy. 6. Tumor encasement of the RIGHT hilar bronchovascular structures. Complete tu mor obstruction RIGHT upper lobe bronchus. 7. New tree-in-bud airspace disease LEFT lower lobe. May be from aspiration pn eumonia. 8. Scattered hypodensities in the liver. Too small to characterize. Metastatic disease is not excluded.
[2025-02-19 08:31] LABS: Respiratory Syncytial Virus Ce NEGATIVE (Negative); SARS-CoV-2 PCR NEGATIVE (Negative)
[2025-02-19 08:32] LABS: Glucose Urine UA Negative (Normal); Nitrate Urine Negative (Negative); Specific Gravity, Urine 1.009 (1.005-1.030)
[2025-02-19] MEDS: iohexol 350 mg/mL 500 mL Btl (per mL) IV (08:34)
[2025-02-19 08:35] LABS: Add Urine Microscopic? YES
[2025-02-19 08:56] LABS: Reflex Lactate Order REFLEX LACTIC ORDERD
[2025-02-19 10:50] LABS: Lactic Acid level (Lactate) 1.8 mmol/L (0.5-2.2)
[2025-02-19 11:06] LABS: ABG PCO2 48.9 mmHg (35-45); ABG PH Result 7.49 (7.35-7.45); Alveolar-Arterial Oxygen Gradi 4.7 mmHg (5-10); Arterial Blood Gas Hematocrit 41.1 % (42-52); Blood Gas Allen Test Pos; Blood Gas LPM 7.0 %; Blood Gas Operator Identificat WALCI; Blood Gas Sample Site Radial, right; Blood Gas Sample Type Arterial; Carboxyhemoglobin 1.2 %THgb (0.4-20.1); Glucose Level-ABG 82.0 mg/dL (70-115); HCO3 ABG 37.2 mmol/L (22-26); Ionized Calcium Level - ABG 1.8 mmol/L (1.1-1.4); Methemoglobin 0.6 % (0.4-1.5); Oxygen Saturation ABG 91.0; PO2 ABG 55.5 mmHg (80.0-100.0); Potassium Level - ABG 3.4 mmol/L (3.5-5.0); Sodium Level - ABG 138.0 mmol/L (131-143)
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
[2025-02-19 15:42] LABS: Thyroid Stimulating Hormone 2.23 uIU/mL (0.27-4.20)
[2025-02-19] MEDS: calcitonin,salmon 200 unit/mL SDV 2mL SUBCUT (16:58)
[2025-02-19 18:34] LABS: MRSA PCR OZH (swab) NOT DETECTED (Negative)
[2025-02-20] VITALS (12 sets, daily range): BP systolic 99–110; BP diastolic 60–69; PULSE 86–103; RESP 16–18; TEMP 36.3–36.6; O2SAT 93–100
[2025-02-20 04:57] LABS: Hematocrit 40.9 % (37-53); Hemoglobin 12.60 g/dL (11.27-16.99); Mean Corpuscular HGB Conc 30.8 g/dL (30-55); Mean Corpuscular Hemoglobin 28.4 pg (27-33); Mean Corpuscular Volume 92.3 fl (82-101); Nucleated Red Blood Cells % 0 %; Platelet Count 387 10^3/cmm (157-399); Red Blood Count 4.43 10^6/uL (3.85-5.65); White Blood Count 21.33 10^3/uL (3.29-11.43)
[2025-02-20 05:18] LABS: Alanine Aminotransferase 10 U/L (0-41); Albumin Level 2.9 g/dL (3.5-5.2); Alkaline Phosphatase 124 U/L (40-130); Anion Gap 9.7 (5-19); Aspartate Amino Transferase 16 U/L (0-40); Blood Urea Nitrogen 15 mg/dL (8-23); Calcium 12.0 mg/dL (8.5-10.5); Carbon Dioxide 37 mmol/L (22-29); Chloride 100 mmol/L (98-107); Creatinine Clr Calc Pharmacy 64.3689; Globulin 4.2 g/dL (1.3-4.6); Glucose 123 mg/dL (65-115); Magnesium 2.0 mg/dL (1.7-2.3); Osmolality Calculated 298 mOsm/kg (285-295); Potassium 3.7 mmol/L (3.5-5.1); Sodium 143 mmol/L (136-145); Total Protein 7.1 g/dL (6.6-8.7)
[2025-02-20] MEDS: cefTRIAXone 1,000 mg SDV 1000 MG IVP (06:16)
--- NOTE | 2025-02-20 07:34 | P.PN_ITS ---
Subjective 2 Subjective: Reports minimal pain but not too bad. Breathing reports feeling comfortable currently while on oxygen at rest. He appears to be perhaps somewhat less confused, slightly stronger. Vitals/I&O/Wt Last Vital Signs Temp 97.8 F 02/20/25 07:14 Pulse 92 02/20/25 07:14 Resp 18 02/20/25 07:14 BP 99/62 02/20/25 07:14 Pulse Ox 100 02/20/25 07:14 O2 Del Method Nasal Cannula 02/20/25 07:14 O2 Flow Rate 6 02/20/25 07:14 FiO2 75 02/19/25 11:28 02/19/25 02/20/25 02/20/25 22:59 06:59 14:59 Intake Total 526.6667 / 776.6667 1480 / 2256.6667 Output Total 200 / 200 Balance 326.6667 / 576.6667 1480 / 2056.6667 Weight last 48 hrs Weight 55.338 kg Weight 55.656 kg Weight 54.204 kg Physical Exam 2 Narrative: Soft spoken At times difficult to understand, but better today. Const: COMMON NORMALS: alert GENERAL APPEARANCE: cooperative and frail appearing ORIENTATION/CONSCIOUSNESS: Yes awake HENMT: COMMON NORMALS: oropharynx normal Neck/C-Spine: COMMON NORMALS: no JVD Resp: AUSCULTATION: rhonchi (few) Cardio: COMMON NORMALS: no JVD, regular rhythm, S1 normal heart sound present, S2 normal heart sound present and No murmurs present (Cardio) RHYTHM: regular rhythm HEART SOUNDS: S1 normal heart sound present and S2 normal heart sound present GI: COMMON NORMALS: Normal to inspection, nondistended, normoactive bowel sounds present, Soft to palpation and non-tender PALPATION: Yes Soft to palpation Extremity: COMMON NORMALS: no joint enlargement and no pedal edema Neuro: COMMON NORMALS: moves all extremities SENSORIUM/ORIENTATION: Yes alert Skin: COMMON NORMALS: no rashes or lesions noted GENERAL SKIN EXAM: no rashes or lesions noted Data 02/20/25 04:29 02/20/25 04:29 Micro: Microbiology 02/19/25 07:04 Blood Culture - Preliminary Blood NEGATIVE TO DATE 02/19/25 07:06 Blood Culture - Preliminary Blood NEGATIVE TO DATE A&P Assessment and plan 1. Postobstructive pneumonia: Appears to be showing some gradual improvement today with less phlegm with improving hypoxia oxygen requirement coming down at the moment and able to wean down to 5 L with oxygen saturation 98% per discussion with respiratory therapist. Reviewed vitals, CBC, CMP. Nasal MRSA negative. Noted persistent leukocytosis 21.33. Continue ceftriaxone and azithromycin. Continue flutter valve. Continue aspiration precautions, speech therapy. Obtain urine bacterial antigens. Post-obstructive pneumonia / aspiration pneumonia : Shortness of breath with productive cough, leukocytosis 23 K/?L, imaging shows tree-in-bud opacities and post-obstructive changes consistent with pneumonia. -Continue medical treatment as per prior discussion with family currently pending reassessment of response to treatment and further goals of care consideration. 2. NSCLC of right lung: Large right hilar mass encasing right upper bronchus with collapse of right upper lobe; biopsy confirmed squamous cell carcinoma. Possible adrenal and hepatic metastases noted on imaging. Oncology staging in progress; tumor causing airway obstruction. Staging currently underway with oncology on outpatient basis. Oncology note reviewed. PET scan has been ordered. Concerns regarding performance status. - Continue conservative inpatient management per consensus with thoracic specialist because of current clinical status - Consider endobronchial stent placement if no improvement (discussion documented) but depending on goals of care 3. Hypercalcemia: Moderate hypercalcemia. Reviewed calcium. Ionized calcium has been requested although I do not see it for today. Serum calcium down to 12. Reviewed magnesium noted 2. Check vitamin D. PTH. Serum calcium 13.5 mg/dL in ED labs. Ionized calcium elevated at 1.8. - Administer calcitonin. Administered bisphosphonate. Monitor for risk of hypocalcemia. - Provide IV fluids, changed to normal saline as potassium was noted normal - Recheck calcium 4. Acute encephalopathy: Appears to be showing some mild improvement. Continue to reorient. Continue to treat underlying conditions with noted improvement calcium, improving hypoxia. He is confused discussion is difficult as he frequently trails of and is difficult to understand. Acute encephalopathy possibly related to acute medical condition with postobstructive pneumonia hypercalcemia hypercapnia with acute metabolic encephalopathy. Reviewed CBC CMP, calcium Fall precautions. Reorient. Treatment of conditions as above. Plan: Hypoxic respiratory failure : Showing gradual improvement. Continue oxygen support. Continue to treat underlying pneumonia. With hypercapnia in ED, although compensating pH. - Maintain oxygen therapy w nasal cannula, adjust as needed - Monitor respiratory status; escalate level of care if deterioration Dysphagia with aspiration risk : Continue dysphagia diet, aspiration precautions. Continue speech therapy. Patient reports difficulty clearing phlegm and occasional choking; [id number] findings suspicious for aspiration. - speech-therapy, appreciate evaluation. Continue follow-up. Consider MBS. - Downgrade to dysphagia diet and maintain aspiration precautions Goals of care / code-status clarification : Patient unable to provide clear code preferences; brother (Perez Hendrix) is health-care contact but not yet reached. CPR likely non-beneficial given extensive cancer. - Revisit goals of care once surrogate decision-maker reached PDMP PDMP Reviewed: Not Reviewed Attestations 2 Medical Necessity Statement*: Continue admission for assessment management of hypoxic respiratory failure with complicated pneumonia with postobstructive pneumonia with underlying extensive lung malignancy, hypercalcemia, acute encephalopathy. and High MDM includes amount and/or complexity of data reviewed/ordered [ previous or external records, resulted lab(s)/test(s), ordered lab(s)/test(s) and other healthcare professional discussion] and described risk of complication, morbidity or mortality of management as documented Diagnoses Postobstructive pneumonia J18.9 NSCLC of right lung C34.91 Hypercalcemia E83.52 Acute encephalopathy G93.40
[2025-02-20 09:29] LABS: Calcium 13.5 mg/dL (8.5-10.5)
[2025-02-20] MEDS: calcitonin,salmon 200 unit/mL SDV 2mL SUBCUT ×2 (09:53→17:44)
[2025-02-20] MEDS: polyethylene glycol 3350 Pkt 17 gm PO (09:54)
[2025-02-21] VITALS (11 sets, daily range): BP systolic 116–128; BP diastolic 63–72; PULSE 79–97; RESP 16–19; TEMP 36.4–36.7; O2SAT 94–99
[2025-02-21 05:39] LABS: Hematocrit 34.6 % (37-53); Hemoglobin 10.80 g/dL (11.27-16.99); Mean Corpuscular HGB Conc 31.2 g/dL (30-55); Mean Corpuscular Hemoglobin 28.9 pg (27-33); Mean Corpuscular Volume 92.5 fl (82-101); Nucleated Red Blood Cells % 0 %; Platelet Count 341 10^3/cmm (157-399); Red Blood Count 3.74 10^6/uL (3.85-5.65); White Blood Count 14.90 10^3/uL (3.29-11.43)
[2025-02-21 05:58] LABS: Alanine Aminotransferase < 5 U/L (0-41); Albumin Level 2.4 g/dL (3.5-5.2); Alkaline Phosphatase 101 U/L (40-130); Anion Gap 7.6 (5-19); Aspartate Amino Transferase 13 U/L (0-40); Blood Urea Nitrogen 11 mg/dL (8-23); Calcium 10.8 mg/dL (8.5-10.5); Carbon Dioxide 34 mmol/L (22-29); Chloride 105 mmol/L (98-107); Creatinine Clr Calc Pharmacy 67.5351; Globulin 3.5 g/dL (1.3-4.6); Glucose 99 mg/dL (65-115); Osmolality Calculated 297 mOsm/kg (285-295); Sodium 144 mmol/L (136-145); Total Protein 5.9 g/dL (6.6-8.7)
[2025-02-21 06:05] LABS: Potassium 2.6 mmol/L (3.5-5.1)
[2025-02-21] MEDS: cefTRIAXone 1,000 mg SDV 1000 MG IVP (06:14)
[2025-02-21] MEDS: polyethylene glycol 3350 Pkt 17 gm PO (07:35)
[2025-02-21] MEDS: calcitonin,salmon 200 unit/mL SDV 2mL SUBCUT ×2 (07:35→16:33)
--- NOTE | 2025-02-21 13:38 | PC.SOCIAL ---
IMM Update pg 2 of IMM update. Copy left @ bedside and copy dated, initialed and placed in chart. patient is confused. Called and left message w/ patients brother Perez to update.
--- NOTE | 2025-02-21 14:58 | PM.PN ---
Subjective Subjective: He is overall feeling better. Breathing feels is feeling better. Not in pain. He is awake and alert. Slowly working on some breakfast. Cannot tell me where he is. Vitals/I&O/Wt Last Vital Signs Temp 97.5 F L 02/21/25 11:31 Pulse 89 02/21/25 14:00 Resp 17 02/21/25 14:00 BP 119/72 02/21/25 11:31 Pulse Ox 97 02/21/25 14:00 O2 Del Method Nasal Cannula 02/21/25 14:00 O2 Flow Rate 2 02/21/25 14:00 FiO2 75 02/19/25 11:28 02/20/25 02/21/25 02/21/25 22:59 06:59 14:59 Intake Total 860 / 1230 941.25 / 2171.25 1210 / 1210 Balance 860 / 1230 941.25 / 2171.25 1210 / 1210 Weight last 48 hrs Weight 58.06 kg Weight 55.338 kg Physical Exam Narrative: Soft spoken but better. Appears stronger. Const: COMMON NORMALS: patient oriented x3 and alert GENERAL APPEARANCE: cooperative and frail appearing ORIENTATION/CONSCIOUSNESS: Yes awake HENMT: COMMON NORMALS: oropharynx normal Neck/C-Spine: COMMON NORMALS: no JVD Resp: COMMON NORMALS: clear to auscultation bilaterally AUSCULTATION: clear to auscultation bilaterally and no rhonchi Cardio: COMMON NORMALS: no JVD, regular rhythm, S1 normal heart sound present, S2 normal heart sound present and No murmurs present (Cardio) RHYTHM: regular rhythm HEART SOUNDS: S1 normal heart sound present and S2 normal heart sound present GI: COMMON NORMALS: Normal to inspection, nondistended, normoactive bowel sounds present, Soft to palpation and non-tender PALPATION: Yes Soft to palpation Extremity: COMMON NORMALS: no joint enlargement and no pedal edema Neuro: COMMON NORMALS: patient oriented x3 and moves all extremities SENSORIUM/ORIENTATION: Yes alert Skin: COMMON NORMALS: no rashes or lesions noted GENERAL SKIN EXAM: no rashes or lesions noted Data 02/21/25 05:28 02/21/25 05:28 Micro: Microbiology 02/20/25 14:42 Bacterial Antigens - Final Urine,Voided 02/20/25 14:42 Legionella Urinary Antigen - Final Urine,Voided A&P Assessment and plan 1. Postobstructive pneumonia: Gradually improving. Still requiring oxygen, but decreasing to 2 L. Leukocytosis decreasing up to 15. Still some mild confusion, cannot tell me where he is but otherwise cooperative, responsive, alert, eating breakfast. With postobstructive pneumonia and aspiration pneumonia, continue IV antibiotics today. Reviewed bacterial antigens, blood culture, negative. If continuing to improve may could possibly discharge over the next day or so with oral antibiotics and follow-up with interventional pulmonology in addition to oncology. Discussed with nursing, home health care case manager. Continue ceftriaxone and azithromycin. Continue flutter valve. Continue aspiration precautions, speech therapy. On presentation shortness of breath with productive cough, leukocytosis 23 K/?L, imaging shows tree-in-bud opacities and post-obstructive changes consistent with pneumonia. -Continue medical treatment as per prior discussion with family currently pending reassessment of response to treatment and further goals of care consideration. I again attempted to reach out to his siblings on the listed number but could not. 2. NSCLC of right lung: Large right hilar mass encasing right upper bronchus with collapse of right upper lobe; biopsy confirmed squamous cell carcinoma. Possible adrenal and hepatic metastases noted on imaging. Oncology staging in progress; tumor causing airway obstruction. Staging currently underway with oncology on outpatient basis. PET scan has been ordered. Concerns regarding performance status. - Continue conservative inpatient management per consensus with thoracic specialist because of current clinical status - Consider endobronchial stent placement if no improvement (discussion documented) but depending on goals of care 3. Hypercalcemia: Persistent hypercalcemia calcium down to 10.8 but ionized calcium still 1.5. Continue calcitonin for today. Received pamidronate. Reassess calcium level. Reviewed vitamin D level, PTH. Low vitamin D stores. Will request replacement. Moderate hypercalcemia. Reviewed calcium. Ionized calcium has been requested although I do not see it for today. Serum calcium down to 12. Reviewed magnesium noted 2. - Administer calcitonin. Administered bisphosphonate. Monitor for risk of hypocalcemia. - Provide IV fluids, monitor for risk of fluid overload - Recheck calcium 4. Acute encephalopathy: Appears to be showing some mild improvement. Continue to reorient. Continue to treat underlying conditions with noted improvement calcium, improving hypoxia. He is confused discussion is difficult as he frequently trails of and is difficult to understand. Acute encephalopathy possibly related to acute medical condition with postobstructive pneumonia hypercalcemia hypercapnia with acute metabolic encephalopathy. Reviewed CBC CMP, calcium Fall precautions. Reorient. Treatment of conditions as above. Plan: Hypokalemia: Received replacement. Recheck potassium. Check magnesium. Hypoxic respiratory failure : Showing gradual improvement. Continue oxygen support. Continue to treat underlying pneumonia. With hypercapnia in ED, although compensating pH. - Maintain oxygen therapy w nasal cannula, adjust as needed - Monitor respiratory status; escalate level of care if deterioration Dysphagia with aspiration risk : Continue dysphagia diet, aspiration precautions. Continue speech therapy. Patient reports difficulty clearing phlegm and occasional choking; [id number] findings suspicious for aspiration. - speech-therapy, appreciate evaluation. Continue follow-up. Consider MBS. - Downgrade to dysphagia diet and maintain aspiration precautions Goals of care / code-status clarification : Patient unable to provide clear code preferences; brother (Perez Hendrix) is health-care contact but not yet reached. CPR likely non-beneficial given extensive cancer. - Revisit goals of care once surrogate decision-maker reached PDMP PDMP Reviewed: Not Reviewed Attestations Medical Necessity Statement*: Continue mission for assessment and management of complicated/postobstructive pneumonia with improving respiratory failure, encephalopathy, hypercalcemia with underlying malignancy. and High MDM includes amount and/or complexity of data reviewed/ordered [ resulted lab(s)/test(s), ordered lab(s)/test(s) and other healthcare professional discussion] and described risk of complication, morbidity or mortality of management as documented Diagnoses Postobstructive pneumonia J18.9 NSCLC of right lung C34.91 Hypercalcemia E83.52 Acute encephalopathy G93.40
[2025-02-22] VITALS (9 sets, daily range): BP systolic 126–135; BP diastolic 69–81; PULSE 78–90; RESP 16–19; TEMP 36.4–36.6; O2SAT 97–99
[2025-02-22 04:02] LABS: Hematocrit 35.8 % (37-53); Hemoglobin 11.00 g/dL (11.27-16.99); Mean Corpuscular HGB Conc 30.7 g/dL (30-55); Mean Corpuscular Hemoglobin 28.6 pg (27-33); Mean Corpuscular Volume 93.0 fl (82-101); Nucleated Red Blood Cells % 0 %; Platelet Count 365 10^3/cmm (157-399); Red Blood Count 3.85 10^6/uL (3.85-5.65); White Blood Count 11.75 10^3/uL (3.29-11.43)
[2025-02-22 04:22] LABS: Alanine Aminotransferase 7 U/L (0-41); Albumin Level 2.6 g/dL (3.5-5.2); Alkaline Phosphatase 106 U/L (40-130); Anion Gap 11.5 (5-19); Aspartate Amino Transferase 12 U/L (0-40); Blood Urea Nitrogen 11 mg/dL (8-23); Calcium 10.0 mg/dL (8.5-10.5); Carbon Dioxide 33 mmol/L (22-29); Chloride 106 mmol/L (98-107); Creatinine Clr Calc Pharmacy 68.4319; Globulin 2.8 g/dL (1.3-4.6); Glucose 77 mg/dL (65-115); Osmolality Calculated 302 mOsm/kg (285-295); Potassium 3.5 mmol/L (3.5-5.1); Sodium 147 mmol/L (136-145); Total Protein 5.4 g/dL (6.6-8.7)
[2025-02-22 04:26] LABS: Magnesium 1.8 mg/dL (1.7-2.3)
[2025-02-22] MEDS: cefTRIAXone 1,000 mg SDV 1000 MG IVP (06:15)
[2025-02-22] MEDS: calcitonin,salmon 200 unit/mL SDV 2mL SUBCUT ×2 (08:34→17:43)
[2025-02-22] MEDS: polyethylene glycol 3350 Pkt 17 gm PO (08:35)
--- NOTE | 2025-02-22 11:24 | PC.SLP ---
Therapist checked on pt in his room. Pt was asleep; however, he woke up when therapist spoke his name. The patient was not able to tell therapist if he had difficulty with his breakfast. The patient asked the therapist to let him rest. Therapist will inform nursing to call if concerns arise.
--- NOTE | 2025-02-22 17:23 | PM.PN ---
Subjective Subjective: Afebrile, hemodynamically stable. White blood cell count trending down to 11,000. Medications: Reviewed: Yes Vitals/I&O/Wt Last Vital Signs Temp 97.8 F 02/22/25 16:00 Pulse 85 02/22/25 16:00 Resp 16 02/22/25 16:00 BP 126/72 02/22/25 16:00 Pulse Ox 98 02/22/25 16:00 O2 Del Method Nasal Cannula 02/22/25 16:00 O2 Flow Rate 2 02/22/25 13:55 FiO2 75 02/19/25 11:28 02/22/25 02/22/25 02/22/25 06:59 14:59 22:59 Intake Total 100 / 1550 850 / 850 Balance 100 / 1550 850 / 850 Weight last 48 hrs Weight 58.831 kg Weight 58.06 kg Physical Exam Narrative: General: No acute distress, AO x3 cachectic, chronically ill-appearing, on 4 L/min supplemental O2. HEENT: PERRLA, pupils bilaterally equal and reactive, pallors not present Chest: Normal vesicular breath sounds, no added sounds, equal good air entry bilaterally CVS: S1-S2 regular, no murmurs, no tachycardia, no gallops, no rubs Abdomen: Soft, nontender, no organomegaly, bowel sounds present Neuro: No focal deficits, no facial deformity, AO x3, power 5/5 in all limbs Data 02/22/25 03:13 02/22/25 03:13 A&P Assessment and plan 1. Postobstructive pneumonia: Gradually improving. Still requiring oxygen, but decreasing to 2 L. Leukocytosis decreasing up to 15. Still some mild confusion, cannot tell me where he is but otherwise cooperative, responsive, alert, eating breakfast. With postobstructive pneumonia and aspiration pneumonia, continue IV antibiotics today. Reviewed bacterial antigens, blood culture, negative. If continuing to improve may could possibly discharge over the next day or so with oral antibiotics and follow-up with interventional pulmonology in addition to oncology. Discussed with nursing, case manager specialist. Continue ceftriaxone and azithromycin. Continue flutter valve. Continue aspiration precautions, speech therapy. On presentation shortness of breath with productive cough, leukocytosis 23 K/?L, imaging shows tree-in-bud opacities and post-obstructive changes consistent with pneumonia. -Continue medical treatment as per prior discussion with family currently pending reassessment of response to treatment and further goals of care consideration. I again attempted to reach out to his siblings on the listed number but could not. 2. NSCLC of right lung: Large right hilar mass encasing right upper bronchus with collapse of right upper lobe; biopsy confirmed squamous cell carcinoma. Possible adrenal and hepatic metastases noted on imaging. Oncology staging in progress; tumor causing airway obstruction. Staging currently underway with oncology on outpatient basis. PET scan has been ordered. Concerns regarding performance status. - Continue conservative inpatient management per consensus with thoracic specialist because of current clinical status - Consider endobronchial stent placement if no improvement (discussion documented) but depending on goals of care 3. Hypercalcemia: Persistent hypercalcemia calcium down to 10.8 but ionized calcium still 1.5. Continue calcitonin for today. Received pamidronate. Reassess calcium level. Reviewed vitamin D level, PTH. Low vitamin D stores. Will request replacement. Moderate hypercalcemia. Reviewed calcium. Ionized calcium has been requested although I do not see it for today. Serum calcium down to 12. Reviewed magnesium noted 2. - Administer calcitonin. Administered bisphosphonate. Monitor for risk of hypocalcemia. - Provide IV fluids, monitor for risk of fluid overload - Recheck calcium 4. Acute encephalopathy: Appears to be showing some mild improvement. Continue to reorient. Continue to treat underlying conditions with noted improvement calcium, improving hypoxia. He is confused discussion is difficult as he frequently trails of and is difficult to understand. Acute encephalopathy possibly related to acute medical condition with postobstructive pneumonia hypercalcemia hypercapnia with acute metabolic encephalopathy. Reviewed CBC CMP, calcium Fall precautions. Reorient. Treatment of conditions as above. Plan: Hypokalemia: Received replacement. Recheck potassium. Check magnesium. Hypoxic respiratory failure : Showing gradual improvement. Continue oxygen support. Continue to treat underlying pneumonia. With hypercapnia in ED, although compensating pH. - Maintain oxygen therapy w nasal cannula, adjust as needed - Monitor respiratory status; escalate level of care if deterioration Dysphagia with aspiration risk : Continue dysphagia diet, aspiration precautions. Continue speech therapy. Patient reports difficulty clearing phlegm and occasional choking; [id number] findings suspicious for aspiration. - speech-therapy, appreciate evaluation. Continue follow-up. Consider MBS. - Downgrade to dysphagia diet and maintain aspiration precautions Goals of care / code-status clarification : Patient unable to provide clear code preferences; brother (Perez Hendrix) is health-care contact but not yet reached. CPR likely non-beneficial given extensive cancer. - Revisit goals of care once surrogate decision-maker reached February 22, 2025 Chart reviewed in entirety. Discussed all updates with patient and family. White blood cell count has trended down to 11,000 today. Patient is afebrile and hemodynamically stable. Discussed at length with family that as long as patient continues to have bronchial obstruction, he will likely be at risk of recurrent pneumonias therefore it would be prudent to follow-up with pulmonology as an outpatient to discuss options for potential bronchial stent going forward. Per family it appears they have been told patient may be a high risk for intubation and being able to be weaned off of the ventilator which is understandable in this case. For now patient is clinically improving with regards to pneumonia. Over the next 24 hours plan to transition him from IV to oral antibiotics In anticipation of discharge. Patient is noted to be dehydrated, eating very little. Sodium up at 147 today. Will discontinue normal saline and switch fluids to D5 at 75 cc an hour. Blood sugar noted normal at 77. Patient has an upcoming PET scan next week following which she has an appointment with pulmonology to discuss further treatment options. PDMP PDMP Reviewed: Not Reviewed Attestations Medical Necessity Statement*: Hypernatremia, sodium at 147, change fluids from normal saline to D5 at 75 cc an hour. Coding Level of Care Code Acute Code for Chg Fwd Diagnoses Postobstructive pneumonia J18.9 NSCLC of right lung C34.91 Hypercalcemia E83.52 Acute encephalopathy G93.40
[2025-02-23] VITALS (10 sets, daily range): BP systolic 121–143; BP diastolic 69–86; PULSE 75–90; RESP 16–20; TEMP 36.3–36.7; O2SAT 94–99
[2025-02-23] MEDS: cefTRIAXone 1,000 mg SDV 1000 MG IVP (06:21)
[2025-02-23] MEDS: calcitonin,salmon 200 unit/mL SDV 2mL SUBCUT ×2 (10:31→18:38)
--- NOTE | 2025-02-23 10:32 | PC.RESP ---
This therapist called to er, unable to return in time for medication delivery.
[2025-02-23 11:07] LABS: Alanine Aminotransferase 8 U/L (0-41); Albumin Level 2.5 g/dL (3.5-5.2); Alkaline Phosphatase 107 U/L (40-130); Anion Gap 9.1 (5-19); Aspartate Amino Transferase 14 U/L (0-40); Blood Urea Nitrogen 9 mg/dL (8-23); Calcium 9.2 mg/dL (8.5-10.5); Carbon Dioxide 30 mmol/L (22-29); Chloride 104 mmol/L (98-107); Globulin 3.5 g/dL (1.3-4.6); Glucose 88 mg/dL (65-115); Osmolality Calculated 288 mOsm/kg (285-295); Potassium 3.1 mmol/L (3.5-5.1); Sodium 140 mmol/L (136-145); Total Protein 6.0 g/dL (6.6-8.7)
[2025-02-23 11:11] LABS: Creatinine Clr Calc Pharmacy 68.5901
--- NOTE | 2025-02-23 16:11 | P.DS_ITS ---
Discharge Providers Date of Admission: 02/19/25 11:22 Date of Discharge: February 23, 2025 Attending Provider at Admission: Herb Albrecht Attending Provider at Discharge: Silvia Ojeda MD Primary Care Provider: Chavez Smith Diagnoses at Discharge Discharge Diagnosis 1. Postobstructive pneumonia: 2. NSCLC of right lun. Hypercalcemia: 4. 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 He was found to have a significant postobstructive pneumonia. Transfer was considered from the emergency room to [place] for pulmonology assessment and possibly placement of a bronchial valve, however patient was deemed too unstable to be able to tolerate intubation and any procedures. He was treated for the postobstructive pneumonia with antibiotics here in the hospital. He has responded well to treatment with ceftriaxone and azithromycin in the hospital currently. WBC count has trended down from 21,000-11,000 at this time. Patient is afebrile. Oxygen requirements down to 2 L/min at the time of discharge. He has been transitioned to oral cefdinir and levofloxacin at the time of discharge to be continued for 5 days. Patient has a PET scan upcoming on February 28, 2025 to determine extent of his cancer. He has a follow-up appointment with oncology on 03/03/2025. Discussed extensively with patient's family and patient that with gross bronchial obstruction from the upper lobe mass as noted on bronchoscopy, patient will likely suffer from recurrent cycles of pneumonia related to the obstruction. Bronchial stent may be helpful if he is a candidate for the same and if it remains compatible with his goals of care after PET scan determines extent of disease.. Recommended to follow-up with pulmonology in [place] for the same. Hospital course was also complicated by hypercalcemia of malignancy as evidenced by low PTH levels. He received treatment with calcitonin 200 units subcutaneous twice daily with normalization of his calcium levels by the time of discharge. Patient was encephalopathic upon admission, likely contributed by acute infection and hypercalcemia, mental status is much improved. He is alert awake oriented and able to have a conversation with me today though he remains chronically ill and cachectic. Other electrolyte abnormalities included hypernatremia and hypokalemia which have both corrected by the time of discharge. Patient is being discharged to SNF today and chronically ill but best optimized condition. This documentation was created by [employer] aircraft maintenance director software. Every effort was made to ensure accuracy of aircraft maintenance director. Any obvious errors or omissions should be clarified with the author of the document. Physical Exam Narrative: General: No acute distress, AO x3 HEENT: PERRLA, pupils bilaterally equal and reactive, pallors not present Chest: Normal vesicular breath sounds, no added sounds, equal good air entry bilaterally CVS: S1-S2 regular, no murmurs, no tachycardia, no gallops, no rubs Abdomen: Soft, nontender, no organomegaly, bowel sounds present Neuro: No focal deficits, no facial deformity, AO x3, power 5/5 in all limbs Discharge Data Studies Completed and Pending Completed Studies During Hospitalization Category Date Time Status CT angio chest PE protcl [id number] Stat Cat Scan 02/19/25 07:45 Completed XR chest 1V portable [id number] Stat Exams 02/19/25 06:42 Completed Pending at discharge Category Date Time Status Blood Culture Stat Lab 02/19/25 07:06 Results CMP [Comprehensive Metabolic Panel] AM LABS Lab 02/24/25 04:00 Ordered Complete Blood Count w/Auto AM LABS Lab 02/24/25 04:00 Ordered Sputum Culture and Gram Stain Routine Lab 02/19/25 14:09 Uncollected Radiology Impressions Chest X-Ray 02/19/25 06:42 IMPRESSION: 1. Unchanged complete opacification of the right upper lobe. 2. Persistent small right pleural effusion with adjacent airspace opacities, which may represent atelectasis or pneumonia in the adequate clinical setting. Chest CTA 02/19/25 07:45 IMPRESSION: 1. No pulmonary embolism. 2. Patient has a known large mass centered in the RIGHT hilum with extension into the mediastinum and RIGHT upper lobe with postobstructive RIGHT upper lobe collapse. 3. Postobstructive atelectasis RIGHT lower lobe with a small RIGHT lower lobe effusion. 4. Tumor versus secretions in the proximal RIGHT upper lobe bronchus. Additional tumor versus secretions in the proximal RIGHT lower lobe bronchus. 5. Mediastinal and hilar adenopathy. 6. Tumor encasement of the RIGHT hilar bronchovascular structures. Complete tumor obstruction RIGHT upper lobe bronchus. 7. New tree-in-bud airspace disease LEFT lower lobe. May be from aspiration pneumonia. 8. Scattered hypodensities in the liver. Too small to characterize. Metastatic disease is not excluded. Laboratory Results WBC 11.75 10^3/uL (3.29-11.43) H 02/22/25 03:13 RBC 3.85 10^6/uL (3.85-5.65) 02/22/25 03:13 Hgb 11.00 g/dL (11.27-16.99) L 02/22/25 03:13 Hct 35.8 % (37-53) L 02/22/25 03:13 MCV 93.0 fl (82-101) 02/22/25 03:13 MCH 28.6 pg (27-33) 02/22/25 03:13 MCHC 30.7 g/dL (30-55) 02/22/25 03:13 RDW 14.6 % (12.1-15.1) 02/22/25 03:13 Plt Count 365 10^3/cmm (157-399) 02/22/25 03:13 MPV 10.7 fL (7.4-10.4) H 02/22/25 03:13 Neut % (Auto) 81.9 % 02/22/25 03:13 Lymph % (Auto) 8.4 % 02/22/25 03:13 [place] % (Auto) 8.0 % 02/22/25 03:13 Eos % (Auto) 1.2 % 02/22/25 03:13 Baso % (Auto) 0.1 % 02/22/25 03:13 Neut # (Auto) 9.62 10^3/uL (1.8-7.7) H 02/22/25 03:13 Lymph # (Auto) 1.0 10^3/uL (0.8-4.8) 02/22/25 03:13 [place] # (Auto) 0.9 10^3/uL (0.2-0.9) 02/22/25 03:13 Eos # (Auto) 0.1 10^3/uL (0.0-0.8) 02/22/25 03:13 Baso # (Auto) 0.0 10^3/uL (0.0-0.1) 02/22/25 03:13 Nucleated RBC % (auto) 0 % 02/22/25 03:13 Nucleated RBCs # 0.0 /100WBC 02/22/25 03:13 Specimen Type Arterial 02/19/25 10:56 Sample Site Radial, right 02/19/25 10:56 ABG pH 7.49 (7.35-7.45) H 02/19/25 10:56 ABG pCO2 48.9 mmHg (35-45) H 02/19/25 10:56 ABG pO2 55.5 mmHg (80.0-100.0) L 02/19/25 10:56 ABG HCO3 37.2 mmol/L (22-26) H 02/19/25 10:56 ABG O2 Saturation 91.0 02/19/25 10:56 ABG Base Excess 12.1 mmol/L (-2.0-2.0) H 02/19/25 10:56 [place] Test Pos 02/19/25 10:56 A-a O2 Gradient 4.7 mmHg (5-10) L 02/19/25 10:56 Hematocrit 41.1 % (42-52) L 02/19/25 10:56 Hgb O2 Saturation 89.3 % (95-100) L 02/19/25 10:56 Carboxyhemoglobin 1.2 %THgb (0.4-20.1) 02/19/25 10:56 Methemoglobin 0.6 % (0.4-1.5) 02/19/25 10:56 Total Hemoglobin 13.4 g/dL (14-18) L 02/19/25 10:56 Sodium 138.0 mmol/L (131-143) 02/19/25 10:56 Potassium 3.4 mmol/L (3.5-5.0) L 02/19/25 10:56 Glucose 82.0 mg/dL (70-115) 02/19/25 10:56 Ionized Calcium 1.8 mmol/L (1.1-1.4) H* 02/19/25 10:56 O2 Delivery Device Nc 02/19/25 10:56 O2 Liters/Min 7.0 % 02/19/25 10:56 Fitter Up ID [place] 02/19/25 10:56 Sodium 140 mmol/L (136-145) 02/23/25 10:36 Potassium 3.1 mmol/L (3.5-5.1) L 02/23/25 10:36 Chloride 104 mmol/L (98-107) 02/23/25 10:36 Carbon Dioxide 30 mmol/L (22-29) H 02/23/25 10:36 Anion Gap 9.1 (5-19) 02/23/25 10:36 BUN 9 mg/dL (8-23) 02/23/25 10:36 Creatinine 0.4 mg/dL (0.7-1.2) L 02/23/25 10:36 GFR Calculation Not Reportable 02/23/25 10:36 Glucose 88 mg/dL (65-115) 02/23/25 10:36 Calculated Osmolality 288 mOsm/kg (285-295) 02/23/25 10:36 Lactic Acid 2.2 mmol/L (0.5-2.2) 02/19/25 07:04 Lactic Acid (Sepsis) 1.8 mmol/L (0.5-2.2) 02/19/25 10:20 Calcium 9.2 mg/dL (8.5-10.5) 02/23/25 10:36 Ionized Calcium [place] 1.4 mmol/L (1.1-1.4) 02/22/25 03:13 Magnesium 1.8 mg/dL (1.7-2.3) 02/22/25 03:13 Total Bilirubin 0.5 mg/dL (0.15-1.2) 02/23/25 10:36 AST 14 U/L (0-40) 02/23/25 10:36 ALT 8 U/L (0-41) 02/23/25 10:36 Alkaline Phosphatase 107 U/L (40-130) 02/23/25 10:36 Creatine Kinase 19 U/L (39-308) L 02/19/25 07:04 C-Reactive Protein 70.2 mg/L (0.0-4.9) H 02/19/25 07:04 NT-Pro-B Natriuret Pep 1003 pg/mL (0-125) H 02/19/25 07:04 Total Protein 6.0 g/dL (6.6-8.7) L 02/23/25 10:36 Albumin 2.5 g/dL (3.5-5.2) L 02/23/25 10:36 Globulin 3.5 g/dL (1.3-4.6) 02/23/25 10:36 25-OH Vitamin D Total 22 ng/mL (30-100) L 02/19/25 07:04 TSH 2.23 uIU/mL (0.27-4.20) 02/19/25 07:04 PTH Intact 9.2 pg/mL (15-65) L 02/19/25 07:04 Calcium (PTH Intact) 13.5 mg/dL (8.5-10.5) H 02/19/25 07:04 Urine Color Yellow (Yellow) 02/19/25 07:41 Urine Appearance Turbid (CLEAR) A 02/19/25 07:41 Urine pH 7.5 (5-7) 02/19/25 07:41 Ur Specific [place] 1.009 (1.005-1.030) 02/19/25 07:41 Urine Protein Negative (Negative) 02/19/25 07:41 Urine Glucose (UA) Negative (Normal) 02/19/25 07:41 Urine Ketones Negative (Negative) 02/19/25 07:41 Urine Blood Negative (Negative) 02/19/25 07:41 Urine Nitrate Negative (Negative) 02/19/25 07:41 Urine Bilirubin Negative (Negative) 02/19/25 07:41 Urine Urobilinogen 1.0 mg/dL (Negative) 02/19/25 07:41 Ur Leukocyte Esterase Negative (Negative) 02/19/25 07:41 Urine RBC 0-2 /hpf (0-2) 02/19/25 07:41 Urine WBC 0-5 /hpf (0-5) 02/19/25 07:41 Ur Squamous Epith Cells 0-5 /hpf (0-5) 02/19/25 07:41 Amorphous Sediment Not Reportable 02/19/25 07:41 Urine Bacteria None seen /hpf (NONE) 02/19/25 07:41 Hyaline Casts 0.81 /lpf 02/19/25 07:41 Nasal MRSA (PCR) Not detected (Negative) 02/19/25 17:20 Influenza A (PCR) Negative (Negative) 02/19/25 07:24 Influenza Type B (PCR) Negative (Negative) 02/19/25 07:24 RSV (PCR) Negative (Negative) 02/19/25 07:24 SARS-CoV-2 (PCR) Negative (Negative) 02/19/25 07:24 Vitals Last Vital Signs Temp 97.8 F 02/23/25 12:00 Pulse 80 02/23/25 14:29 Resp 18 02/23/25 14:29 BP 125/86 02/23/25 12:00 Pulse Ox 98 02/23/25 14:29 O2 Del Method Nasal Cannula 02/23/25 14:29 O2 Flow Rate 2 02/23/25 14:29 FiO2 75 02/19/25 11:28 Discharge Plan Discharge Patient Disposition: Xfer SNF Condition: Stable Prescriptions: New cefdinir 300 mg capsule 300 mg PO BID 7 Days Qty: 14 0RF levofloxacin 500 mg tablet 500 mg PO DAILY 3 Days Qty: 3 0RF Continued oxycodone 5 mg/5 mL solution 5 mg PO Q4H PRN (Reason: Pain) guaifenesin 100 mg/5 mL liquid 200 mg PO Q4H PRN (Reason: Congestion) ipratropium-albuterol 0.5 mg-3 mg(2.5 mg base)/3 mL Solution For Nebulization 3 ml INHALATION Q6H PRN (Reason: Shortness Of Breath) acetaminophen 500 mg Tablet 500 mg PO Q4H PRN (Reason: Pain) methocarbamol 750 mg Tablet 750 mg PO Q8H PRN (Reason: spasms ) magnesium hydroxide [Milk of Magnesia] 400 mg/5 mL Suspension 30 ml PO DAILY PRN (Reason: Constipation) bisacodyl [Dulcolax (bisacodyl)] 10 mg Suppository 10 mg IA DAILY PRN (Reason: Constipation) Fleet Enema 19-7 gram/118 mL Enema 118 ml IA DAILY PRN (Reason: Constipation) polyethylene glycol 3350 [Miralax] 17 gram/dose Powder 17 g PO DAILY Referrals: Solomon Moreau MD [Hospitalist, Oncology] - 03/03/25 1:45 pm Chavez Smith NP [Primary Care Provider, Family Practice] - 4-7 days Discharge Attestations Time Spent in Discharge Care*: greater than 30 min Quality Metrics Clinical Quality Measures [ No reported AMI, CVA or VTE this stay] Coding Level of Care Code Acute Code for Chg Fwd Diagnoses Postobstructive pneumonia J18.9 NSCLC of right lung C34.91 Hypercalcemia E83.52 Acute encephalopathy G93.40
--- NOTE | 2025-02-23 17:42 | PC.NURSE ---
This nurse called inpatient pharmacy and spoke with Pablito about the calcitonin for this patient. They did not have any available at that time. Pablito said he was going to see if he could get some.
[2025-02-23] MEDS: lidocaine 1% 5 ML in potassium chloride premix 100 ML 26.25 ML IV (18:37)
[2025-02-24] VITALS (9 sets, daily range): BP systolic 120–133; BP diastolic 71–76; PULSE 65–94; RESP 16–18; TEMP 36.4–36.8; O2SAT 94–100
[2025-02-24 03:31] LABS: Hematocrit 37.9 % (37-53); Hemoglobin 11.50 g/dL (11.27-16.99); Mean Corpuscular HGB Conc 30.3 g/dL (30-55); Mean Corpuscular Hemoglobin 28.4 pg (27-33); Mean Corpuscular Volume 93.6 fl (82-101); Nucleated Red Blood Cells % 0 %; Platelet Count 355 10^3/cmm (157-399); Red Blood Count 4.05 10^6/uL (3.85-5.65); White Blood Count 11.34 10^3/uL (3.29-11.43)
[2025-02-24 03:52] LABS: Alanine Aminotransferase 9 U/L (0-41); Albumin Level 2.6 g/dL (3.5-5.2); Alkaline Phosphatase 111 U/L (40-130); Anion Gap 9.8 (5-19); Aspartate Amino Transferase 20 U/L (0-40); Blood Urea Nitrogen 8 mg/dL (8-23); Calcium 9.2 mg/dL (8.5-10.5); Carbon Dioxide 29 mmol/L (22-29); Chloride 105 mmol/L (98-107); Creatinine Clr Calc Pharmacy 68.5901; Globulin 3.4 g/dL (1.3-4.6); Glucose 111 mg/dL (65-115); Osmolality Calculated 289 mOsm/kg (285-295); Potassium 3.8 mmol/L (3.5-5.1); Sodium 140 mmol/L (136-145); Total Protein 6.0 g/dL (6.6-8.7)
[2025-02-24] MEDS: cefTRIAXone 1,000 mg SDV 1000 MG IVP (06:38)
[2025-02-24] MEDS: polyethylene glycol 3350 Pkt 17 gm PO (08:43)
[2025-02-24] MEDS: calcitonin,salmon 200 unit/mL SDV 2mL SUBCUT (08:44)
--- NOTE | 2025-02-24 10:53 | P.DS_ITS ---
Discharge Providers Date of Admission: 02/19/25 11:22 Date of Discharge: February 24, 2025 Attending Provider at Admission: Herb Albrecht Attending Provider at Discharge: Mike Salinas MD Primary Care Provider: Chavez Smith Diagnoses at Discharge Discharge Diagnosis 1. Postobstructive pneumonia: 2. NSCLC of right lun. Hypercalcemia: 4. 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 He was found to have a significant postobstructive pneumonia. Transfer was considered from the emergency room to [place] for pulmonology assessment and possibly placement of a bronchial valve, however patient was deemed too unstable to be able to tolerate intubation and any procedures. He was treated for the postobstructive pneumonia with antibiotics here in the hospital. He has responded well to treatment with ceftriaxone and azithromycin in the hospital currently. WBC count has trended down from 21,000-11,000 at this time. Patient is afebrile. Oxygen requirements down to 2 L/min at the time of discharge. He has been transitioned to oral cefdinir and levofloxacin at the time of discharge to be continued for 5 days. Patient has a PET scan upcoming on February 28, 2025 to determine extent of his cancer. He has a follow-up appointment with oncology on 03/03/2025. Patient and family informed per hospitalist over the weekend that with gross bronchial obstruction from the upper lobe mass as noted on bronchoscopy, patient will likely suffer from recurrent cycles of pneumonia related to the obstruction. Bronchial stent may be helpful if he is a candidate for the same and if it remains compatible with his goals of care after PET scan determines extent of disease. Hospitalists remain available for ongoing discussions as needed prior to discharge. Recommended to follow-up with pulmonology in [place] for the same. Hospital course was also complicated by hypercalcemia of malignancy as evidenced by low PTH levels. He received treatment with calcitonin 200 units subcutaneous twice daily with normalization of his calcium levels by the time of discharge. Patient was encephalopathic upon admission, likely contributed by acute infection and hypercalcemia, mental status is much improved. He is alert awake oriented and able to converse appropriately though he remains chronically ill and cachectic. Other electrolyte abnormalities included hypernatremia and hypokalemia which have both corrected by the time of discharge. Patient is being discharged to SNF today as there was not the staff at the SNF for discharge over the weekend. Physical Exam Const: COMMON NORMALS: no acute distress, average body habitus and patient oriented x3 HENMT: COMMON NORMALS: normocephalic and atraumatic HEAD & SCALP: normocephalic and atraumatic Eye: COMMON NORMALS: Equal, round and reactive pupils present PUPIL: Yes Equal, round and reactive pupils present Resp: COMMON NORMALS: normal respiratory effort (diminished breath sounds in bases, no rales) Cardio: COMMON NORMALS: regular rate, regular rhythm, No gallops present (Cardio), No clicks present (Cardio) and No murmurs present (Cardio) RATE: regular rate RHYTHM: regular rhythm GI: COMMON NORMALS: Soft to palpation, non-tender and no masses PALPATION: Yes Soft to palpation Neuro: COMMON NORMALS: patient oriented x3, moves all extremities and no focal motor deficits Discharge Data Studies Completed and Pending Completed Studies During Hospitalization Category Date Time Status CT angio chest PE protcl [id number] Stat Cat Scan 02/19/25 07:45 Completed XR chest 1V portable [id number] Stat Exams 02/19/25 06:42 Completed Pending at discharge Category Date Time Status SARS Covid-2 Antigen Routine Lab 02/24/25 10:42 Uncollected Sputum Culture and Gram Stain Routine Lab 02/19/25 14:09 Uncollected Radiology Impressions Chest X-Ray 02/19/25 06:42 IMPRESSION: 1. Unchanged complete opacification of the right upper lobe. 2. Persistent small right pleural effusion with adjacent airspace opacities, which may represent atelectasis or pneumonia in the adequate clinical setting. Chest CTA 02/19/25 07:45 IMPRESSION: 1. No pulmonary embolism. 2. Patient has a known large mass centered in the RIGHT hilum with extension into the mediastinum and RIGHT upper lobe with postobstructive RIGHT upper lobe collapse. 3. Postobstructive atelectasis RIGHT lower lobe with a small RIGHT lower lobe effusion. 4. Tumor versus secretions in the proximal RIGHT upper lobe bronchus. Additional tumor versus secretions in the proximal RIGHT lower lobe bronchus. 5. Mediastinal and hilar adenopathy. 6. Tumor encasement of the RIGHT hilar bronchovascular structures. Complete tumor obstruction RIGHT upper lobe bronchus. 7. New tree-in-bud airspace disease LEFT lower lobe. May be from aspiration pneumonia. 8. Scattered hypodensities in the liver. Too small to characterize. Metastatic disease is not excluded. Laboratory Results WBC 11.34 10^3/uL (3.29-11.43) 02/24/25 02:15 RBC 4.05 10^6/uL (3.85-5.65) 02/24/25 02:15 Hgb 11.50 g/dL (11.27-16.99) 02/24/25 02:15 Hct 37.9 % (37-53) 02/24/25 02:15 MCV 93.6 fl (82-101) 02/24/25 02:15 MCH 28.4 pg (27-33) 02/24/25 02:15 MCHC 30.3 g/dL (30-55) 02/24/25 02:15 RDW 14.4 % (12.1-15.1) 02/24/25 02:15 Plt Count 355 10^3/cmm (157-399) 02/24/25 02:15 MPV 11.0 fL (7.4-10.4) H 02/24/25 02:15 Neut % (Auto) 80.1 % 02/24/25 02:15 Lymph % (Auto) 10.2 % 02/24/25 02:15 Oliver % (Auto) 8.4 % 02/24/25 02:15 Eos % (Auto) 0.8 % 02/24/25 02:15 Baso % (Auto) 0.1 % 02/24/25 02:15 Neut # (Auto) 9.08 10^3/uL (1.8-7.7) H 02/24/25 02:15 Lymph # (Auto) 1.2 10^3/uL (0.8-4.8) 02/24/25 02:15 Oliver # (Auto) 1.0 10^3/uL (0.2-0.9) H 02/24/25 02:15 Eos # (Auto) 0.1 10^3/uL (0.0-0.8) 02/24/25 02:15 Baso # (Auto) 0.0 10^3/uL (0.0-0.1) 02/24/25 02:15 Nucleated RBC % (auto) 0 % 02/24/25 02:15 Nucleated RBCs # 0.0 /100WBC 02/24/25 02:15 Specimen Type Arterial 02/19/25 10:56 Sample Site Radial, right 02/19/25 10:56 ABG pH 7.49 (7.35-7.45) H 02/19/25 10:56 ABG pCO2 48.9 mmHg (35-45) H 02/19/25 10:56 ABG pO2 55.5 mmHg (80.0-100.0) L 02/19/25 10:56 ABG HCO3 37.2 mmol/L (22-26) H 02/19/25 10:56 ABG O2 Saturation 91.0 02/19/25 10:56 ABG Base Excess 12.1 mmol/L (-2.0-2.0) H 02/19/25 10:56 [place]on Test Pos 02/19/25 10:56 A-a O2 Gradient 4.7 mmHg (5-10) L 02/19/25 10:56 Hematocrit 41.1 % (42-52) L 02/19/25 10:56 Hgb O2 Saturation 89.3 % (95-100) L 02/19/25 10:56 Carboxyhemoglobin 1.2 %THgb (0.4-20.1) 02/19/25 10:56 Methemoglobin 0.6 % (0.4-1.5) 02/19/25 10:56 Total Hemoglobin 13.4 g/dL (14-18) L 02/19/25 10:56 Sodium 138.0 mmol/L (131-143) 02/19/25 10:56 Potassium 3.4 mmol/L (3.5-5.0) L 02/19/25 10:56 Glucose 82.0 mg/dL (70-115) 02/19/25 10:56 Ionized Calcium 1.8 mmol/L (1.1-1.4) H* 02/19/25 10:56 O2 Delivery Device Nc 02/19/25 10:56 O2 Liters/Min 7.0 % 02/19/25 10:56 Finishing Area Operator ID [place] 02/19/25 10:56 Sodium 140 mmol/L (136-145) 02/24/25 02:15 Potassium 3.8 mmol/L (3.5-5.1) 02/24/25 02:15 Chloride 105 mmol/L (98-107) 02/24/25 02:15 Carbon Dioxide 29 mmol/L (22-29) 02/24/25 02:15 Anion Gap 9.8 (5-19) 02/24/25 02:15 BUN 8 mg/dL (8-23) 02/24/25 02:15 Creatinine 0.3 mg/dL (0.7-1.2) L 02/24/25 02:15 GFR Calculation Not Reportable 02/24/25 02:15 Glucose 111 mg/dL (65-115) 02/24/25 02:15 Calculated Osmolality 289 mOsm/kg (285-295) 02/24/25 02:15 Lactic Acid 2.2 mmol/L (0.5-2.2) 02/19/25 07:04 Lactic Acid (Sepsis) 1.8 mmol/L (0.5-2.2) 02/19/25 10:20 Calcium 9.2 mg/dL (8.5-10.5) 02/24/25 02:15 Ionized Calcium Adeel 1.4 mmol/L (1.1-1.4) 02/22/25 03:13 Magnesium 1.8 mg/dL (1.7-2.3) 02/22/25 03:13 Total Bilirubin 0.4 mg/dL (0.15-1.2) 02/24/25 02:15 AST 20 U/L (0-40) 02/24/25 02:15 ALT 9 U/L (0-41) 02/24/25 02:15 Alkaline Phosphatase 111 U/L (40-130) 02/24/25 02:15 Creatine Kinase 19 U/L (39-308) L 02/19/25 07:04 C-Reactive Protein 70.2 mg/L (0.0-4.9) H 02/19/25 07:04 NT-Pro-B Natriuret Pep 1003 pg/mL (0-125) H 02/19/25 07:04 Total Protein 6.0 g/dL (6.6-8.7) L 02/24/25 02:15 Albumin 2.6 g/dL (3.5-5.2) L 02/24/25 02:15 Globulin 3.4 g/dL (1.3-4.6) 02/24/25 02:15 25-OH Vitamin D Total 22 ng/mL (30-100) L 02/19/25 07:04 TSH 2.23 uIU/mL (0.27-4.20) 02/19/25 07:04 PTH Intact 9.2 pg/mL (15-65) L 02/19/25 07:04 Calcium (PTH Intact) 13.5 mg/dL (8.5-10.5) H 02/19/25 07:04 Urine Color Yellow (Yellow) 02/19/25 07:41 Urine Appearance Turbid (CLEAR) A 02/19/25 07:41 Urine pH 7.5 (5-7) 02/19/25 07:41 Ur Specific [place] 1.009 (1.005-1.030) 02/19/25 07:41 Urine Protein Negative (Negative) 02/19/25 07:41 Urine Glucose (UA) Negative (Normal) 02/19/25 07:41 Urine Ketones Negative (Negative) 02/19/25 07:41 Urine Blood Negative (Negative) 02/19/25 07:41 Urine Nitrate Negative (Negative) 02/19/25 07:41 Urine Bilirubin Negative (Negative) 02/19/25 07:41 Urine Urobilinogen 1.0 mg/dL (Negative) 02/19/25 07:41 Ur Leukocyte Esterase Negative (Negative) 02/19/25 07:41 Urine RBC 0-2 /hpf (0-2) 02/19/25 07:41 Urine WBC 0-5 /hpf (0-5) 02/19/25 07:41 Ur Squamous Epith Cells 0-5 /hpf (0-5) 02/19/25 07:41 Amorphous Sediment Not Reportable 02/19/25 07:41 Urine Bacteria None seen /hpf (NONE) 02/19/25 07:41 Hyaline Casts 0.81 /lpf 02/19/25 07:41 Nasal MRSA (PCR) Not detected (Negative) 02/19/25 17:20 Influenza A (PCR) Negative (Negative) 02/19/25 07:24 Influenza Type B (PCR) Negative (Negative) 02/19/25 07:24 RSV (PCR) Negative (Negative) 02/19/25 07:24 SARS-CoV-2 (PCR) Negative (Negative) 02/19/25 07:24 Vitals Last Vital Signs Temp 97.6 F 02/24/25 07:49 Pulse 80 02/24/25 07:52 Resp 18 02/24/25 07:49 BP 133/73 02/24/25 07:49 Pulse Ox 96 02/24/25 07:49 O2 Del Method Nasal Cannula 02/24/25 07:49 O2 Flow Rate 2 02/24/25 08:00 FiO2 75 02/19/25 11:28 Discharge Plan Discharge Patient Disposition: Xfer SNF Condition: Stable Prescriptions: New cefdinir 300 mg capsule 300 mg PO BID 7 Days Qty: 14 0RF levofloxacin 500 mg tablet 500 mg PO DAILY 3 Days Qty: 3 0RF Continued oxycodone 5 mg/5 mL solution 5 mg PO Q4H PRN (Reason: Pain) guaifenesin 100 mg/5 mL liquid 200 mg PO Q4H PRN (Reason: Congestion) ipratropium-albuterol 0.5 mg-3 mg(2.5 mg base)/3 mL Solution For Nebulization 3 ml INHALATION Q6H PRN (Reason: Shortness Of Breath) acetaminophen 500 mg Tablet 500 mg PO Q4H PRN (Reason: Pain) methocarbamol 750 mg Tablet 750 mg PO Q8H PRN (Reason: spasms ) magnesium hydroxide [Milk of Magnesia] 400 mg/5 mL Suspension 30 ml PO DAILY PRN (Reason: Constipation) bisacodyl [Dulcolax (bisacodyl)] 10 mg Suppository 10 mg MD DAILY PRN (Reason: Constipation) Fleet Enema 19-7 gram/118 mL Enema 118 ml MD DAILY PRN (Reason: Constipation) polyethylene glycol 3350 [Miralax] 17 gram/dose Powder 17 g PO DAILY Discharge Order = DC NOW: Discharge Order (Routine); Ordered 02/24/25 Ordered By: Mike Salinas Referrals: Solomon Moreau MD [Hospitalist, Oncology] - 03/03/25 1:45 pm Chavez Smith NP [Primary Care Provider, Family Practice] - 4-7 days Discharge Attestations Time Spent in Discharge Care*: greater than 30 min Quality Metrics Clinical Quality Measures [ No reported AMI, CVA or VTE this stay] Coding Level of Care Code Acute Code for Chg Fwd Diagnoses Postobstructive pneumonia J18.9 NSCLC of right lung C34.91 Hypercalcemia E83.52 Acute encephalopathy G93.40
--- NOTE | 2025-02-24 12:38 | PC.NURSE ---
Called report to Janet Contreras at [facility]. Janet stated the facility will call us with time of transport.
--- NOTE | 2025-02-24 14:34 | PC.SOCIAL ---
*IMM Update. Signed and dated , placed in chart. Copy gave to patient.
[2025-02-24 15:33] LABS: SARS Covid-2 Antigen Negative (Negative)
== END 2025-02-24 14:50 | disposition skilled nursing facility (03) | DRG 177 ==
LOC: ER 11:47 → MEDSURG 11:48
PROVIDERS: Student in an Organized Health Care Education/Training Program; Admitting Provider Internal Medicine; Emergency Provider Family Medicine; PCP Clinical Nurse Specialist Adult Health; Visit Provider Internal Medicine
DX: J69.0 Pneumonitis due to inhalation of food and vomit (principal); G93.41 Metabolic encephalopathy; J96.00 Acute respiratory failure, unspecified whether with hypoxia or hypercapnia; C34.11 Malignant neoplasm of upper lobe, right bronchus or lung; R64 Cachexia; Z68.1 Body mass index [BMI] 19.9 or less, adult; E87.0 Hyperosmolality and hypernatremia; J98.11 Atelectasis; J18.9 Pneumonia, unspecified organism; E83.52 Hypercalcemia; E87.6 Hypokalemia; I35.0 Nonrheumatic aortic (valve) stenosis; R13.10 Dysphagia, unspecified; F17.210 Nicotine dependence, cigarettes, uncomplicated; Z99.81 Dependence on supplemental oxygen; Z86.718 Personal history of other venous thrombosis and embolism; Z85.828 Personal history of other malignant neoplasm of skin
CPT/HCPCS: 36415; 36600; 71045; 71275; 80051; 80053; 81001; 82306; 82310; 82330; 82550; 82805; 83605; 83735; 83880; 83970; 84443; 85025; 86140; 86403; 87040; 87426; 87449; 87637; 92507; 92523; 92526; 92610; 93005; 94640; 94660; 94664; 96365; 96372; 96375; 99205; 99291; J0456; J0630; J0696; J1650; J2430; J3480; J7030; J7040; J7050; J7070; J9999

== ENCOUNTER 2025-02-26 02:49 | Emergency (ER) | payer MEDICARE, SELFPAY ==
--- NOTE | 2025-02-26 02:53 | XRR_ITS ---
PROCEDURE INFORMATION: Exam: XR Chest Exam date and time: 02/26/2025 4:21 AM Age: 74 years old Clinical indication: Dyspnea; Additional info: Shortness of breath TECHNIQUE: Imaging protocol: Radiologic exam of the chest. Views: 1 view. COMPARISON: CT angio chest PE protcl [id number] 02/19/2025 8:21 AM FINDINGS: Lungs: There is opacification of a large portion of the right hemithorax similar to that seen on prior chest CT. There may be a component of pleural fluid and atelectasis at the right lung base. The left lung is relatively well-expanded and clear. Pleural spaces: Suspect component of pleural fluid on the right. No definite pneumothorax is identified. Heart/Mediastinum: Unremarkable. No cardiomegaly. Bones/joints: Unremarkable. XR/XR chest 1V portable [id number] IMPRESSION: 1. Opacification involving a large portion of the right hemithorax similar to that seen on prior chest CT. 2. Suspect small right pleural effusion with atelectasis at the right lung base.
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
[2025-02-26 02:55] VITALS: BP 145/86; PULSE 103; RESP 20; TEMP 36.7; O2SAT 90; BMI 17.2
[2025-02-26 03:20] VITALS: PULSE 103; RESP 18; O2SAT 90
[2025-02-26] MEDS: methylPREDNISolone sod succ 125 mg/2 mL INJ IVP (03:24)
[2025-02-26 03:25] VITALS: BP 131/87; PULSE 102; O2SAT 92
[2025-02-26 03:25] LABS: ABG PCO2 45.8 mmHg (35-45); ABG PH Result 7.43 (7.35-7.45); Alveolar-Arterial Oxygen Gradi 16.1 mmHg (5-10); Arterial Blood Gas Hematocrit 39.7 % (42-52); Blood Gas Allen Test Pos; Blood Gas LPM 4.0 %; Blood Gas Operator Identificat gerca; Blood Gas Sample Site Radial, right; Blood Gas Sample Type Arterial; Carboxyhemoglobin 1.0 %THgb (0.4-20.1); Glucose Level-ABG 69.0 mg/dL (70-115); HCO3 ABG 30.4 mmol/L (22-26); Ionized Calcium Level - ABG 1.3 mmol/L (1.1-1.4); Methemoglobin 0.9 % (0.4-1.5); Oxygen Saturation ABG 96.0; PO2 ABG 75.4 mmHg (80.0-100.0); PO2 FiO2 Ratio Arterial Blood 209; Potassium Level - ABG 3.4 mmol/L (3.5-5.0); Sodium Level - ABG 140.0 mmol/L (131-143)
[2025-02-26 03:31] VITALS: PULSE 106; RESP 16; O2SAT 92
[2025-02-26 03:34] LABS: Hematocrit 38.5 % (37-53); Hemoglobin 12.40 g/dL (11.27-16.99); Mean Corpuscular HGB Conc 32.2 g/dL (30-55); Mean Corpuscular Hemoglobin 28.9 pg (27-33); Mean Corpuscular Volume 89.7 fl (82-101); Nucleated Red Blood Cells % 0 %; Platelet Count 354 10^3/cmm (157-399); Red Blood Count 4.29 10^6/uL (3.85-5.65); White Blood Count 13.43 10^3/uL (3.29-11.43)
[2025-02-26 03:54] LABS: Lactic Sepsis W/Reflex 1.3 mmol/L (0.5-2.2)
[2025-02-26 04:04] VITALS: BP 131/77; PULSE 105; O2SAT 92
[2025-02-26 04:04] LABS: Alanine Aminotransferase 10 U/L (0-41); Albumin Level 2.9 g/dL (3.5-5.2); Alkaline Phosphatase 119 U/L (40-130); Anion Gap 13.5 (5-19); Aspartate Amino Transferase 18 U/L (0-40); Blood Urea Nitrogen 12 mg/dL (8-23); Calcium 9.2 mg/dL (8.5-10.5); Carbon Dioxide 28 mmol/L (22-29); Chloride 102 mmol/L (98-107); Creatinine Clr Calc Pharmacy 63.3138; Globulin 3.5 g/dL (1.3-4.6); Glucose 79 mg/dL (65-115); NT Pro B Type Natriuretic Pept 1092 pg/mL (0-125); Osmolality Calculated 289 mOsm/kg (285-295); Potassium 3.5 mmol/L (3.5-5.1); Sodium 140 mmol/L (136-145); Total Protein 6.4 g/dL (6.6-8.7)
[2025-02-26 04:11] LABS: Respiratory Syncytial Virus Ce NEGATIVE (Negative); SARS-CoV-2 PCR NEGATIVE (Negative)
[2025-02-26 06:59] VITALS: BP 136/81; PULSE 102; O2SAT 93
--- OUTSIDE RECORDS SUMMARY | 2025-02-26 18:36 | XMS_ITS | Encounter Summary ---
Author Organization [facility] Address 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
--- OUTSIDE RECORDS SUMMARY | 2025-02-26 18:36 | XMS_ITS | Clinical Summary ---
Author Organization [facility], formerly [facility] Address [address] [place] [address] Phone Care Team Providers Care Cloth Desizing Range Tender Name Role Phone Unavailable Primary Care Provider Unavailabl e Allergies Active Allergy Reactions Criticality Noted Date Comments Alpha-Gal (Kbncsmlia-Hytkl-2,3-Galacto se) Unknown Low 01/23/2025 Pt pt & [...] Encounters Date Type Department Care Team Description 02/25/2025 External Device Data STL ABSTRACTION Provider, Abstract 02/25/2025 External Device Data STL ABSTRACTION Provider, Abstract 02/11/2025 Orders Only [facility] Neurosurgery [address] [place] [phone] Zina Jack FNP Closed fracture of twelfth thoracic vertebra, unspecified fracture morphology, initial encounter ([facility]) (Primary Dx); Closed fracture of spinous process of lumbar vertebra with routine healing (L4) 02/06/2025 Telephone [facility] Center [address] [place] [address] Bladimir Estrada, RN Nurse Navigation 02/05/2025 Chart Note [facility] [address] [place] [address] Bladimir Estrada, RN 02/05/2025 Orders Only [facility] Cancer and Hematology [place] [address] [place] [phone] Baldomero Mittal MD Mass of upper lobe of right lung (Primary Dx) 02/04/2025 External Device Data STL ABSTRACTION Provider, Abstract 02/03/2025 8:00 AM CDT Office Visit [facility] Cancer and Hematology [place] [address] [place] [phone] Baldomero Mittal MD Mass of upper lobe of right lung (Primary Dx) 01/31/2025 Telephone [facility] Cancer and Hematology [place] [address] [place] [phone] Baldomero Mittal MD establishing care 01/27/2025 Results Follow-Up [facility] Pulmonology [address] [place] [address] Ariana Mckeon MD PATHOLOGY 01/23/2025 8:47 AM CDT Anesthesia Event [facility] Endoscopy [address] [place] [address] Justus Gomez MD 01/23/2025 8:46 AM CDT - 01/23/2025 9:51 AM CDT Surgery [facility] Endoscopy [address] [place] [address] Ariana Mckeon MD BRONCHOSCOPY 01/21/2025 External Device Data STL ABSTRACTION Provider, Abstract 01/21/2025 External Device Data STL ABSTRACTION Provider, Abstract 01/21/2025 External Device Data STL ABSTRACTION Provider, Abstract 01/19/2025 7:20 PM CDT - 01/31/2025 11:00 AM CDT Hospital Encounter [facility] 3A Surgical [address] 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 Gender Identity Not on file Sexual Orientation [...] 02/03/2025 8:47 AM CDT Plan of Treatment Health Maintenance Due Date Last Done Comments [...] 2011 Abdominal Aortic Aneurysm (AAA) Screening 11/18/2016 Medicare Advantage ([place]) Prev entative Visit/Annual Wellness Visit 07/17/2024 INFLUENZA VACCINE (#1) 2025 Medical Devices Implanted Type Area Sewing Machine Operator Device Identifier Shelf Expiration Date Model / Serial / Lot Plate Plate Right: Leg Description:pt reports havin ga metal plate in his Right upper leg [...] W SPEECH Routine 01/25/2025 11:41 AM CDT MINT MACHINE OPERATOR EVALUATION Routine 01/25/2025 10:11 AM CDT MINT MACHINE OPERATOR EVALUATE AND TREAT Routine 6:35 AM CDT [...] CDT PATHOLOGY Pathology 01/23/2025 9:10 AM CDT IN ANES INSERT ENDOTRACHEAL AIRWAY Routine 01/23/2025 8:58 [...] of8 resultswithin the time period is included. WBC 11.5(H) 4.8 - 10.8 K/uL 01/30/2025 8:43 AM T [facility] RBC 4.19(L) 4.60 - 6.20 M/uL 01/30/2025 8:43 AM [facility] HEMOGLOBIN 12.3(L) 14.0 - 18.0 g/dL 01/30/2025 8:43 AM [facility] HEMATOCRIT 39.2(L) 41.0 - 53.0 % 01/30/2025 8:43 AM [facility] MCV 93.6 84.0 - 103.0 fL 01/30/2025 8:43 AM [facility] MCH 29.4 27.0 - 34.0 pg 01/30/2025 8:43 AM [facility] MCHC 31.4 30.0 - 35.0 g/dL 01/30/2025 8:43 AM [facility] PLATELETS 407 140 - 440 K/uL 01/30/2025 8:43 AM [facility] MPV 10.3 8.9 - 12.8 fL 01/30/2025 8:43 AM [facility] RDW 13.0 11.0 - 14.5 % 01/30/2025 8:43 AM [facility] RDW-STDEV 45.0 37.0 - 54.0 fL 01/30/2025 8:43 AM [facility] NEUTROPHILS 78(H) 42 - 75 % 01/30/2025 8:43 AM [facility] LYMPHOCYTES 11(L) 24 - 44 % 01/30/2025 8:43 AM CDT [facility] [employer] [facility] MONOCYTES 8 2 - 10 % 01/30/2025 8:43 AM CDT [facility] EOSINOPHILS 2 0 - 7 % 01/30/2025 8:43 AM CDT [facility] BASOPHILS 0 0 - 1 % 01/30/2025 8:43 AM CDT [facility] IMMATURE GRANULOCYTES 1 0 - 2 % 01/30/2025 8:43 AM CDT [facility] NEUTROPHIL ABSOLUTE 8.98(H) 2.00 - 8.00 K/uL 01/30/2025 8:43 AM CDT [facility] LYMPHOCYTE ABSOLUTE 1.32 1.20 - 4.00 K/uL 01/30/2025 8:43 AM CDT [facility] MONOCYTE ABSOLUTE 0.90(H) 0.10 - 0.60 K/uL 01/30/2025 8:43 AM CDT [facility] EOSINOPHIL ABSOLUTE 0.21 0.00 - 0.70 K/uL 01/30/2025 8:43 AM CDT [facility] BASOPHILS ABSOLUTE 0.05 0.00 - 0.20 K/uL 01/30/2025 8:43 AM CDT [facility] IMMATURE GRANULOCYTES ABSOLUTE 0.08 0.00 - 0.10 K/uL 01/30/2025 8:43 AM CDT [facility] SMEAR REVIEWED: NA - Not Applicable 01/30/2025 8:43 AM CDT [facility] Blood Venipuncture / Unknown 01/30/2025 8:12 AM CDT 01/30/2025 8:36 AM CDT us Bladimir Flowers PA-C HEMATOLOGY ORDERABLES Final Resu lt [facility] CLIA # [id number] [address] [address] [place], [place] [id number] * (ABNORMAL) BASIC METABOLIC PANEL (01/30/2025 8:12 AM CDT) Only the most recent of3 resultswithin the time period is included. SODIUM 136 136 - 145 mmol/L 01/30/2025 9:14 AM [facility] POTASSIUM 4.7 3.5 - 5.1 mmol/L 01/30/2025 9:14 AM [facility] CHLORIDE 96(L) 98 - 107 mmol/L 01/30/2025 9:14 AM [facility] CO2 35(H) 22 - 29 mmol/L 01/30/2025 9:14 AM [facility] CALCIUM 11.4(H) 8.8 - 10.2 mg/dL 01/30/2025 9:14 AM [facility] BUN 15 8 - 23 mg/dL 01/30/2025 9:14 AM [facility] CREATININE 0.57(L) 0.67 - 1.17 mg/dL 01/30/2025 9:14 AM [facility] Comment:The GFR result is no t clinically significant on patients <18 or >70 years of age. GLUCOSE 80 74 - 99 mg/dL 01/30/2025 9:14 AM [facility] GFR >60 mL/min/1. 73 sq meter 01/30/2025 9:14 AM [facility] Comment:eGFR calculated with 2020 CKD-EPI equation. Vegetarian diet, extremely high or low muscle mass, and may affect results. Cystatin C with Glomerular Filtration Rate is a suitable alternative for these patients. ANION GAP 5(L) 9 - 20 mmol/L 01/30/2025 9:14 AM T [facility] Blood Venipuncture / Unknown 01/30/2025 8:12 AM CDT 01/30/2025 8:36 AM CDT us Bladimir Flowers PA-C CHEMISTRY ORDERABLES Final Resul t [facility] CLIA # [id number] [address] [address] * MRI BRAIN W WO CONTRAST (01/29/2025 [...] medial cerebellum consistent with recent microembolic or professional builder ischemic insults. There is no large territorial infarct, mass or hemorrhage. No pathologic enhancement or enhancing lesions. 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 Major intracranial arterial flow voids are preserved. Orbits and paranasal sinuses unremarkable. Mild bilateral mastoid inflammatory change. IMPRESSION: Tiny recent ischemic insults in the left cerebellum. Otherwise no acute pathology. No evidence of GAME DESIGNER metastatic disease. Mild global volume loss and low-grade leukoaraiosis underlying. Narrative Procedure Note Terence Navarrete, DO - 01/29/2025 IMPRESSION: Please see below. [...] medial cerebellum consistent with recent microembolic or professional builder ischemic insults. There is no large territorial infarct, mass or hemorrhage. No pathologic enhancement or enhancing lesions. 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 Major intracranial arterial flow voids are preserved. Orbits and paranasal sinuses unremarkable. Mild bilateral mastoid inflammatory change. IMPRESSION: Tiny recent ischemic insults in the left cerebellum. Otherwise no acute pathology. No evidence of GAME DESIGNER metastatic disease. Mild global volume loss and low-grade leukoaraiosis underlying. Gracie Barahona NP MR ORDERABLES Final Result * (ABNORMAL) VITAMIN B12 AND FOLATE (01/28/2025 4:02 AM CDT) VITAMIN B12 1,509(H) 211 - 946 pg/mL 01/28/2025 5:37 AM CDT [facility] FOLATE, SERUM 5.3 3.1 - 17.5 ng/mL 01/28/2025 5:37 AM CDT [facility] Blood Venipuncture / Unknown 01/28/2025 4:02 AM CDT 01/28/2025 4:47 AM CDT Gracie Barahona NP CHEMISTRY ORDERABLES Final Res ult [facility] CLIA # [id number] [facility] [place] [address] * (ABNORMAL) IRON, TIBC, AND PERCENT SATURATION (01/28/2025 4:02 AM CDT) [facility] IRON 28(L) 59 - 158 ug/dL 01/28/2025 5:33 AM CDT [facility] TIBC 205(L) 250 - 450 ug/dL 01/28/2025 5:33 AM CDT [facility] IRON % SATURATION 14(L) 15 - 60 % 01/28/2025 5:33 AM CDT [facility] Blood Venipuncture / Unknown 01/28/2025 4:02 AM CDT 01/28/2025 4:47 AM CDT us Gracie Barahona NP CHEMISTRY ORDERABLES Final Res ult [facility] CLIA # [id number] [address] [address] * RETICULOCYTES (01/28/2025 4:02 AM CDT) [facility] RETICULOCYTES 1.9 0.9 - 2.2 % 01/28/2025 4:57 AM CDT [facility] IMMATURE RETIC FRACTION 13.8 4.3 - 16.9 % 01/28/2025 4:57 AM CDT [facility] RETICULOCYTE, ABSOLUTE 0.0700 0.0260 - 0.0950 10e6/uL 01/28/2025 4:57 AM CDT [facility] RETICULOCYTE HEMOGLOBIN CONTENT 34.2 28.6 - 37.4 pg 01/28/2025 4:57 AM CDT [facility] Blood Venipuncture / Unknown 01/28/2025 4:02 AM CDT 01/28/2025 4:47 AM CDT us Gracie Barahona NP HEMATOLOGY ORDERABLES Final Re sult Performing Organization Address [facility] de Phone Number [facility] CLIA # [id number] [address] [address] [place], [place] [address] * (ABNORMAL) FERRITIN (01/28/2025 4:02 AM CDT) FERRITIN 902.6(H) 30.0 - 400.0 ng/mL 01/28/2025 5:33 AM CDT [facility] Blood Venipuncture / Unknown 01/28/2025 4:02 AM CDT 01/28/2025 4:47 AM CDT us Gracie Barahona NP CHEMISTRY ORDERABLES Final Res ult Performing Organization Address [facility] de Phone Number [facility] CLIA # [id number] [address] [address] * PHOSPHORUS (01/27/2025 6:00 AM CDT) Only the most recent of5 resultswithin the time period is included. PHOSPHORUS 2.7 2.5 - 4.5 mg/dL 01/27/2025 7:16 AM CDT [facility] Blood Venipuncture / Unknown 01/27/2025 6:00 AM CDT 01/27/2025 6:13 AM CDT us Perez HADDAD CHEMISTRY ORDERABLES Final Resul t Performing Organization Address [facility] Co de Phone Number [facility] CLIA # [id number] [address] [address] * MAGNESIUM LEVEL (01/27/2025 6:00 AM CDT) Only the most recent of5 resultswithin the time period is included. MAGNESIUM 1.9 1.6 - 2.4 mg/dL 01/27/2025 7:16 AM [facility] Blood Venipuncture / Unknown 01/27/2025 6:00 AM CDT 01/27/2025 6:13 AM CDT us Perez HADDAD CHEMISTRY ORDERABLES Final Resul t [facility] CLIA # [id number] [address] [address] * (ABNORMAL) COMPREHENSIVE METABOLIC PANEL (01/27/2025 6:00 AM CDT) Only the most recent of5 resultswithin the time period is included. SODIUM 138 136 - 145 mmol/L 01/27/2025 7:16 AM [facility] POTASSIUM 4.6 3.5 - 5.1 mmol/L 01/27/2025 7:16 AM [facility] CHLORIDE 97(L) 98 - 107 mmol/L 01/27/2025 7:16 AM [facility] CO2 32(H) 22 - 29 mmol/L 01/27/2025 7:16 AM [facility] CALCIUM 11.9(H) 8.8 - 10.2 mg/dL 01/27/2025 7:16 AM [facility] BUN 21 8 - 23 mg/dL 01/27/2025 7:16 AM [facility] CREATININE 0.66(L) 0.67 - 1.17 mg/dL 01/27/2025 7:16 AM [facility] Comment:The GFR result is no t clinically significant on patients <18 or >70 years of age. GLUCOSE 76 74 - 99 mg/dL 01/27/2025 7:16 AM [facility] TOTAL PROTEIN 6.4 6.4 - 8.3 g/dL 01/27/2025 7:16 AM CDT [facility] ALBUMIN 2.9(L) 3.5 - 5.2 g/dL 01/27/2025 7:16 AM CDT [facility] BILIRUBIN TOTAL 0.8 0.0 - 1.0 mg/dL 01/27/2025 7:16 AM CDT [facility] ALKALINE PHOSPHATASE 119 40 - 129 U/L 01/27/2025 7:16 AM CDT [facility] AST 26 10 - 50 U/L 01/27/2025 7:16 AM CDT [facility] ALT 28 <=50 U/L 01/27/2025 7:16 AM T [facility] GFR >60 mL/min/1. 73 sq meter 01/27/2025 7:16 AM T [facility] Comment:eGFR calculated with 2020 CKD-EPI equation. Vegetarian diet, extremely high or low muscle mass, and may affect results. Cystatin C with Glomerular Filtration Rate is a suitable alternative for these patients. ANION GAP 9 9 - 20 mmol/L 01/27/2025 7:16 AM T [facility] Blood Venipuncture / Unknown 01/27/2025 6:00 AM CDT 01/27/2025 6:13 AM CDT Perez HADDAD CHEMISTRY ORDERABLES Final Resul t [facility] CLIA # [id number] [address] [place] [address] * XR VIDEO SWALLOW W SPEECH (01/25/2025 [...] degenerative change with anterior bridging osteophyte formation. Preez HADDAD DIAGNOSTIC IMAGING ORDERABLES Fi nal Result * PROCEDURE REPORT (01/23/2025 9:44 AM CDT) Narrative Procedure Note Ariana Mckeon MD - 01/23/2025 9:44 AM CDT [facility] Pulmonology Patient Name: Perfecto Hendrix Procedure [...] see rest of details from a separate EPIC note. Estimated Blood Loss: Estimated blood loss [...] see rest of details from a separate [facility] note. Impression: - Right upper lobe mass - Endobronchial ultrasound was performed. - A transbronchial needle aspiration was performed. - An endobronchial biopsy was performed. Ariana Carpio MD 01/23/2025 9:44:15 AM This report has been signed electronically. Number of Addenda: 0 Note Initiated On: 01/23/2025 8:47 AM Scope In: 9:01:51 AM Scope Out: 9:33:[address] [place] [address], [address], [place] us Ariana Carpio MD PROCEDURE/REBECCA R SURGICAL ORDERABLES Final Result * PATHOLOGY (01/23/2025 9:10 AM CDT) CASE REPORT Surgical Pathology Report Case: [id number] Authorizing Provider: Ariana Mckeon Collected: 01/23/2025 09:10 AM MD Ana Maria Ordering Location: [facility] Received: 01/23/2025 11:11 AM Endoscopy Pathologist: Chavez Garg MD Specimens: A) - Lymph node, station 4R, mass B) - Lung, right upper lobe, mass 8:44 AM CDT [facility] FINAL DIAGNOSIS A. 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 Lung, right upper lobe mass, endobronchial biopsy - Scant fragments of poorly differentiated squamous cell carcinoma with extensive necrosis REV:PBX MANAGER Chavez Garg MD [id number] 8:44 AM CDT [facility] at 0844 CDT GROSS DESCRIPTION A. Received in a container of formalin labeled Henderson -lymph node, FNA station 4R/mass is an aggregate of soft tissue, 2.5 x 1 x 0 0.3 x 0.1 cm. The specimen is submitted entirely in A1. B. Received in a container of formalin labeled Ruma -lung, RUL mass EB BX is an aggregate of soft tissue, 0.4 x 0.3 x 0.1 cm. The specimen is submitted entirely in B1. Jenny Fields 5 8:44 AM CDT [facility] MICROSCOPIC DESCRIPTION Immunohistochemical stains for antibodies to AE1/AE3, CK7, CK20, p40, and TTF-1 are performed on A1 the tumor cells are positive for AE1/AE3, CK7 (subset), and p40, and are negative for CK20 and TTF-1. 5 8:44 AM CDT [facility] OPERATIVE PROCEDURE 1: BRONCHOSCOPY 2: BRONCHOSCOPY WITH EBUS INCLUDING FLUOROSCOPIC GUIDANCE 5 8:44 AM T [facility] COMMENT The FieldLens voice-activated dictation system may have been used [...] determined by the Diagnostic Immunohistochemistry Laboratory of [facility] in compliance with CLIA'88 regulations. Some of these tests rely on the use of analyte specific reagents and are subject to specific labeling requirements by the FDA. All controls show appropriate reactivity. This testing was developed by the Diagnostic Immunohistochemistry Laboratory of [facility]. It has not been cleared or approved by the FDA. The FDA has determined that such clearance or approval is not necessary. 8:44 AM CDT [facility] Tissue ENTIRE LYMPH NODE / Unknown Collection / Unknown 01/23/2025 9:10 AM CDT 01/23/2025 11:11 AM CDT Comment:Verified by TB/JK No primary care provider on file. Tissue specimen (specimen) SPECIMEN FROM LUNG / Unknown 01/23/2025 9:30 AM CDT 01/23/2025 11:11 AM CDT Comment:Verified by TB/JK No primary care provider on file. 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 Comparison: January 19. Procedure Note Marty De León MD - 01/22/2025 Exam: XR THORACOLUMBAR SPINE 1 VW Date/Time of Exam: 01/22/2025 2:27 PM Reason For Exam: Fracture. Diagnosis: Blunt trauma to chest, initial encounter; Lung mass; Closed fracture of multiple ribs of right side, initial encounter; Hydropneumothorax; Closed fracture of twelfth thoracic vertebra, unspecified fracture morphology, initial encounter ([facility]). Comparison: January 19. IMPRESSION: Mild anterolisthesis of L4-5. He will body heights appear grossly maintained. Vertebral body fractures better seen on prior CT. Zina Jack LABOR RELATIONS SPECIALIST DIAGNOSTIC IMAGING ORDERA BLES Final Result * (ABNORMAL) POC GLUCOSE (01/20/2025 6:57 PM CDT) Only the most recent of4 resultswithin the time period is included. GLUCOSE POC 115(H) 74 - 99 mg/dL 01/20/2025 6:57 PM CDT [facility] SPECIMEN SOURCE, GLUCOSE POC Capillary 01/20/2025 6:57 PM CDT [facility] Blood, whole 01/20/2025 6:57 PM CDT 01/21/2025 9:41 AM CDT Andrew Lam DO POINT OF CARE TESTING Final Resu lt [facility] CLIA # [id number] [address] [place] [id number] * ECHO COMPLETE - CONTRAST AND STRAIN IF INDICATED (01/20/2025 1:13 PM CDT) EJECTION FRACTION 65 INTERFACE SYSTEM 01/20/2025 12:1 9 PM CDT Narrative INTERFACE SYSTEM - 01/20/2025 5:57 PM CDT [facility] Cardiovascular Services Echocardiography Laboratory [address] [place] [address] Transthoracic Echocardiography Patient: Perfecto Hendrix Study ID: ECHO COMPLETE - L Gender: M : 1950 Age: 74 Room: [facility] Study 01/20/2025 Pt Inpatient Date: Status: Study 12:19:12 PM CSN #: [id number] Time: Ordering:Andrew Lam (osu) Python Developer: Lasha Martinez [facility] Zoology Teacher:Dilia Pradhan Indications and History: murmur, trauma. Summary [...] (H) daphne values outside specified reference range. [facility] Echo Labs are accredited with the Intersocietal Accreditation Commission - Echocardiography. Prepared and Electronically Authenticated Franklin Trimble Confirmed 01/20/2025 17:57 Procedure Note Franklin Trimble MD - 01/20/2025 [facility] Cardiovascular Services Echocardiography Laboratory [address] [place] [address] Transthoracic Echocardiography Patient: Perfecto Hendrix Study ID: ECHO COMPLETE- L Gender: Mukesh : 1950 Age: 74 Room: [facility] Study 01/20/2025 Pt Inpatient Date: Status: Study 12:19:12 PM CSN #: [id number] Time: Ordering:Andrew Lam ([facility]) Python Developer: Lasha Martinez [facility] Zoology Teacher:Dilia Pradhan Indications and History: murmur, trauma. Summary and Conclusion: - Left ventricle: The cavity size is normal. Wall thickness is normal.Global systolic function is normal. For [facility] reporting: the left ventricular ejection fraction is [...] is normal.Global systolic function is normal. For [facility] reporting: the left ventricularejection fraction is 65% [...] (H) daphne values outside specified reference range. [facility] Echo Labs are accredited with theIntersocietal Accreditation Commission - Echocardiography. Prepared and Electronically Authenticated Franklin Trimble Confirmed 01/20/2025 17:57 us Andrew Beam DO US ORDERABLES Final Result INTERFACE SYSTEM [...] thoracic vertebra, unspecified fracture morphology, initial encounter ([facility]). Findings: Comparison is made to the chest x-ray from [facility] on 01/19/2025 at 1339. [...] thoracic vertebra, unspecified fracture morphology, initial encounter ([facility]). Findings: Comparison is made to the chest x-ray from [facility] on 01/19/2025 at 1339. [...] INTERFACE SYSTEM - 01/20/2025 6:40 AM CDT [address] [address] Test Date: 2025-01-19 Pat Name: [place] UNKNOWN Department: 11 Room: 02 02 Gender: Male Gift Packer: [email or web address] : Requested By: Order Number: [id number] Reading : Mckenzie Harrington Measurements Intervals Range Rate: 91 P: 68 IN: 148 QRS: 71 QRSD: 138 T: 51 QT: 394 QTc: 484 Interpretive Statements Normal sinus rhythm Nonspecific intraventricular block Abnormal ECG Electronically Signed On 01-20-2025 6:40:32 CDT by Mckenzie Harrington Procedure Note Provider, Historical - 01/20/[address] [address] Test Date: 2025-01-19 Pat Name: [place] UNKNOWN Department: 11 Room: 02 02 Gender: Male Gift Packer: [email or web address] : Requested By: Order Number: [id number] Reading : Mckenzie Harrington Measurements Intervals Range Rate: 91 P: 68 IN: 148 QRS: 71 QRSD: 138 T: 51 QT: 394 QTc: 484 Interpretive Statements Normal sinus rhythm Nonspecific intraventricular block Abnormal ECG Electronically Signed On 01-20-2025 6:40:32 CDT by Mckenzie Harrington Andrew Beam DO ECG ORDERABLES Final Result Performing Organization Address City/[facility] Co de Phone Number INTERFACE SYSTEM Refer to clinic/hospital department * OSMOLALITY (01/19/2025 9:15 PM CDT) Pathologist [facility] OSMOLALITY [phone] mOsm/kg 01/19/2025 10:20 PM CDT [facility] [employer] LAB[facility]ATORY [facility] Blood Venipuncture / Unknown 01/19/2025 9:15 PM CDT 01/19/2025 9:45 PM CDT AndrewMatchup DO CHEMISTRY ORDERABLES Final Resul t Performing Organization Address [facility] de Phone Number [facility] LABORATORY [facility] CLIA # [id number] [address] [place] [address] * VERIFICATION BLOOD GROUP (01/19/2025 7:28 PM CDT) [facility] ABO GROUP O 01/19/2025 7:47 PM CDT [facility] LABORATORY [facility] RH (D) TYPE Negative 01/19/2025 7:47 PM CDT [facility] LABORATORY [facility] Blood Venipuncture / Unknown 01/19/2025 7:28 PM CDT 01/19/2025 7:33 PM CDT Dez Wheat MD BLOOD BANK ORDERAB LES Final Result Performing Organization Address [facility] de Phone Number [facility] [employer] [facility] CLIA#[id number] [address] [place] [address], * LACTIC ACID (01/19/2025 7:26 PM CDT) [facility] LACTIC ACID 1.7 <=2.0 mmol/L 01/19/2025 7:58 PM CDT [facility] LABORATORY [facility] Blood Venipuncture / Unknown 01/19/2025 7:26 PM CDT 01/19/2025 7:34 PM CDT Dez Wheat MD CHEMISTRY ORDERABL ES Final Result Performing Organization Address [facility] de Phone Number [facility] CLIA # [id number] [address] [address] [place] [address] * PTT (01/19/2025 7:26 PM CDT) PTT 32.4 24.8 - 37.2 seconds 01/19/2025 8:06 PM CDT [facility] Blood Venipuncture / Unknown 01/19/2025 7:26 PM CDT 01/19/2025 7:34 PM CDT Narrative [facility] LABORATORY [facility] - 01/19/2025 8:06 PM CDT Therapeutic Range: Hi-level PE/DVT heparin protocol 80.1 - 95.0 sec Lo-level PE/DVT heparin protocol 70.1 - 85.0 sec Cardiac Heparin Protocol 70.1 - 100.0 sec Dez Wheat MD HEMATOLOGY ORDERAB LES Final Result Performing Organization Address [facility] Co de Phone Number [facility] CLIA # [id number] [address] [address] * (ABNORMAL) PROTIME-INR (01/19/2025 7:26 PM CDT) PROTIME 15.6(H) 12.7 - 14.9 Seconds 01/19/2025 8:06 PM CDT [facility] [employer] [facility] INR 1.2 0.8 - 1.2 01/19/2025 8:06 PM CDT [facility] LABORATORY SERVICES [facility] Blood Venipuncture / Unknown 01/19/2025 7:26 PM CDT 01/19/2025 7:34 PM CDT Narrative [facility] LABORATORY SERVICES - [place] - 01/19/2025 8:06 PM CDT Expected Values for INR: DVT/PE Goal INR 2.5; range 2.0 - 3.0 Valve Replacement Tissue Goal INR 2.5; range 2.0 - 3.0 Valve Replacement Mechanical Goal INR 3.0; range 2.5 - 3.5 POST-MA Goal INR 2.5; range 2.0 - 3.0 or Goal INR 3.0; range 2.5 - 3.5 Atrial Fibrillation Goal INR 2.5; range 2.0 - 3.0 Ischemic Stroke Goal INR 2.5; range 2.0 - 3.0 Dez Wheat MD HEMATOLOGY ORDERAB LES Final Result Performing Organization Address City/[facility]/ZIP Co de Phone Number [facility] [employer] [facility] CLIA # [id number] [address] [facility] [place] [address] * TYPE AND SCREEN (01/19/2025 7:26 PM CDT) ABO GROUP O 01/19/2025 8:19 PM CDT [facility] LABORATORY SERVICES -- [place] RH (D) TYPE Negative 01/19/2025 8:19 PM CDT [facility]ORY [facility] [place] ANTIBODY SCREEN Negative 01/19/2025 8:19 PM CDT [facility] [place] Blood Venipuncture / Unknown 01/19/2025 7:26 PM CDT 01/19/2025 7:33 PM CDT Dez Wheat MD BLOOD BANK ORDERAB LES Edited Result - Final [facility] [employer] [facility] CLIA#[id number] [address] [place], [place] [id number] [place] [address] * ETHANOL LEVEL (01/19/2025 7:26 PM CDT) ETHANOL <10.10 <10.10 mg/dL 01/19/2025 8:09 PM CDT [facility] ETHANOL % <0.01 <=0.01 %w/v 01/19/2025 8:09 PM CDT [facility] Blood Venipuncture / Unknown 01/19/2025 7:26 PM CDT 01/19/2025 7:34 PM CDT Dez Wheat MD CHEMISTRY ORDERABL ES Final Result [facility] CLIA # [id number] [address] [address] from Last 3 Months Insurance [address] [place] [address] [facility] [id number] MEDICAID PENDING [place] Advance Directives For more information, please contact: [phone] * Full Code (Latest Code Status on File) Date Activated Date Inactivated Comments 01/23/2025 8:19 AM 01/31/2025 1:24 PM * Full Code Date Activated Date Inactivated Comments 01/19/2025 9:03 PM 01/23/2025 8:19 AM
--- OUTSIDE RECORDS SUMMARY | 2025-02-26 18:36 | XMS_ITS | Encounter Summary ---
Author Organization [facility] Address [address] [place] [address] Care Team Providers Care Sales Agent Protective Service Name Role Phone Unavailable Primary Care Provider Unavailabl e Encounter Details Date Type Department Care Team (Late st Contact Info) Description 01/27/2025 Results Follow-Up [facility] Pulmonology [address] [place] [address] Ariana Mckeon MD [address] [place] [address] PATHOLOGY Social History Tobacco Use Types Packs/Day Years Used Date Smoking Tobacco: Every Day Cigarettes 1.5 57.1 Started: 01/20/1968 Sex and Gender Information Value Date Recorded Sex Assigned at Not on file 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
--- OUTSIDE RECORDS SUMMARY | 2025-02-26 18:36 | XMS_ITS | Encounter Summary ---
Author Organization [employer] Address 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
== END 2025-02-26 07:47 | disposition home or self-care (01) ==
PROVIDERS: Emergency Provider Emergency Medicine; PCP Clinical Nurse Specialist Adult Health
DX: J44.1 Chronic obstructive pulmonary disease with (acute) exacerbation (principal); Z11.52 Encounter for screening for COVID-19; Z99.81 Dependence on supplemental oxygen; Z87.891 Personal history of nicotine dependence
CPT/HCPCS: 36415; 36600; 71045; 80051; 80053; 82330; 82805; 83605; 83880; 85025; 87040; 87637; 94640; 96374; 99284; J2919; J7613; J9999

== ENCOUNTER 2025-03-06 12:43 | Oncology outpatient (recurring) (ONCR) | payer MEDICARE, SELFPAY ==
--- NOTE | 2025-02-28 09:30 | PETR_ITS ---
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 Then, PET images were obtained. Attenuation corrected images were constructed using the CT scan. Fused images of PET and CT were reviewed. The standardized uptake values (SUV) reported below are maximum values within a region of interest, expressed in gm/ml. Exam includes orbital meatal line to mid-thigh. SUV normalization method: BodyWeight Radiopharmaceutical: 11.56 mCi F-18 FDG (Fluorodeoxyglucose), IV. Time of imaging post radiopharmaceutical administration: 54 minutes Injection site: right ac COMPARISON: 1. CT angio chest PE protcl [id number] 02/19/2025 8:[address] chest abdpel w/*[id number] 01/19/2025 1:[address] cervical spin wo con* [id number] 01/19/2025 1:49 PM FINDINGS: Brain: Visualized brain has normal physiologic uptake. Pharynx: No abnormal uptake. Larynx: No abnormal uptake. Lungs, pleura and trachea: FDG avid proximal right bronchial occlusion possibly contiguous with heterogeneous FDG avid mass replacing the right upper lobe showing SUV max 20.1 at the posteromedial aspect on axial image 79. Heterogeneous non FDG avid secretions at the lower trachea as well as distal right bronchus, right middle and lower lobe airways distal to FDG avid occlusion. Resultant right middle and lower lobe consolidations with very low-level FDG uptake. Small right pleural effusion. Non FDG avid posterior left basilar tree-in-bud nodularity. Left upper lobe calcified granuloma. 1.5 cm right posterolateral tracheal diverticulum on axial image 63. Heart: Normal physiologic uptake. Aortic valve calcification may be seen in the setting of aortic stenosis. Mitral annular calcification. Mediastinal space: No abnormal uptake. Liver: No abnormal uptake. Gallbladder and biliary ducts: No abnormal uptake. Suspect cholelithiasis. Pancreas: No abnormal uptake. Spleen: No abnormal uptake. Adrenal glands: No abnormal uptake. Stable small right adrenal calcification. Kidneys and ureters: Normal physiologic uptake. Bilateral nonobstructive nephrolithiasis. Stomach and bowel: FDG uptake along decompressed proximal stomach. Otherwise no abnormal uptake. Colonic diverticulosis without findings of diverticulitis. Urinary bladder: Mild dependent layering urinary bladder calcific debris/stones. Vasculature: No abnormal uptake. Moderate systemic atherosclerotic calcification without aortic aneurysm. Lymph nodes: Right upper paratracheal lymph node measures 1.1 cm in the short axis on axial image 70 and is non FDG avid. More inferior FDG avid enlarged mediastinal and right hilar lymphadenopathy appears confluent with right upper lobe mass and is difficult to discretely measure. Calcified left hilar node in keeping with sequela of old granulomatous disease. Skeleton: Focal FDG uptake at the left anterior C2 vertebral margin without underlying CT abnormality shows SUV max 6.5 on axial image 26, tiny calcification in this region on comparison cervical spine CT. Focal FDG uptake at the calcified right 1st costomanubrial cartilage without underlying CT abnormality shows SUV max 6.5 on axial image 72. Focal FDG uptake at the leftward sacrum without underlying CT abnormality shows SUV max 4.1 on axial image 212. Partially visualized chronic proximal right femoral shaft fracture deformity with plate and screw fixation. Degenerative change along the spine, shoulders, and sacroiliac joints with severe left glenohumeral joint osteoarthritis showing multiple intra-articular bodies. Soft tissues: Focal FDG uptake at the anterior right upper chest just superficial to the anterolateral right 1st rib shows SUV max 17.8 on axial image 64. METRICS: Mediastinal blood pool: SUV mean 1.3 Liver uptake: SUV mean 1.5 PET/PET skull to thigh INIT [id number] IMPRESSION: 1. Malignant FDG avid proximal right main bronchus occlusion appears confluent with heterogeneous FDG avid right upper lobe mass essentially replacing the entire right upper lobe, which also appears confluent with mediastinal and right hilar lymphadenopathy. 2. Few foci of focal bony FDG uptake without underlying CT abnormality are nonspecific but raise concern for metastatic disease. The focus at the anterior left C2 vertebral margin with corresponding tiny calcification on comparison cervical spine CT could alternatively be inflammatory. 3. Focal FDG uptake just anterolateral to the right 1st rib raises concern for metastatic deposit. 4. Heterogeneous distal right main bronchus, right middle and lower lobe secretions with downstream right middle and lower lobe consolidations likely representing atelectasis, superimposed infiltrate not entirely excluded. 5. Small right pleural effusion. 6. Mild non FDG avid left basilar tree-in-bud nodularity may represent aspiration, infectious or inflammatory bronchiolitis. 7. FDG uptake along decompressed proximal stomach is likely benign physiologic or possibly inflammatory. 8. Additional chronic and incidental findings as above.
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
== END 2025-03-16 23:59 | disposition home or self-care (01) ==
PROVIDERS: PCP Clinical Nurse Specialist Adult Health; Visit Provider Internal Medicine Medical Oncology
DX: C34.11 Malignant neoplasm of upper lobe, right bronchus or lung (principal); C77.1 Secondary and unspecified malignant neoplasm of intrathoracic lymph nodes; C79.72 Secondary malignant neoplasm of left adrenal gland; J18.9 Pneumonia, unspecified organism; M84.48XS Pathological fracture, other site, sequela
CPT/HCPCS: 78815; 96365; 96375; 99205; 99214; 99291; A9552

== ENCOUNTER 2025-03-16 11:49 | Inpatient (IN) | payer MEDICARE, SELFPAY ==
[2025-03-16] VITALS (12 sets, daily range): BP systolic 106–141; BP diastolic 51–87; PULSE 88–105; RESP 16–22; TEMP 36.2–36.8; O2SAT 99–100; BMI 16.0
--- OUTSIDE RECORDS SUMMARY | 2025-03-16 11:53 | XMS_ITS | Encounter Summary ---
Author Organization [facility] Address [address] [place] [address] Care Team Providers Care Real Estate Associate Name Role Phone Unavailable Primary Care Provider Unavailabl e Encounter Details Date Type Department Care Team (Late st Contact Info) Description 01/27/2025 Results Follow-Up [facility] Pulmonology [address] [place] [address] Ariana Mckeon MD [address] [place] [address] PATHOLOGY Social History Tobacco Use Types Packs/Day Years Used Date Smoking Tobacco: Every Day Cigarettes 1.5 57.2 Started: 01/20/1967 Feeling Safe Answer Date Recorded Are you in a relationship wi th someone who hurts you emotionally and/or physically? 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 Neurosurgery [address] [place] [address] Zina Jack FNP [address] [place] [address] documented as of this encounter Visit Diagnoses Not on filedocumented in this encounter
--- OUTSIDE RECORDS SUMMARY | 2025-03-16 11:53 | XMS_ITS ---
Author Organization Unknown TREATMENT PLAN Planned Care Start Date Provider Encounter for Check-up [phone] John diop [facility]
--- OUTSIDE RECORDS SUMMARY | 2025-03-16 11:53 | XMS_ITS | Clinical Summary ---
Author Organization [facility] Address [address] [place] [address] Phone Care Team Providers Care Medical Records Clerk Name Role Phone Unavailable Primary Care Provider Unavailabl e Allergies Active Allergy Reactions Criticality Noted Date Comments Alpha-Gal (Xerhriink-Urhoy-8,3-Galacto se) Unknown Low 01/23/2025 Pt pt & [...] STL ABSTRACTION Provider, Abstract 02/11/2025 Orders Only [facility] Neurosurgery [address] [place] [phone] Zina Jack FNP Closed fracture of twelfth thoracic vertebra, unspecified fracture morphology, initial encounter ([facility]) (Primary Dx); Closed fracture of spinous process of lumbar vertebra with routine healing (L4) 02/06/2025 Telephone [facility] Cancer Center [address] [place] [address] Bladimir Estrada, RN Nurse Navigation 02/05/2025 Chart Note [facility] [address] [place] [address] Bladimir Estrada, RN 02/05/2025 Orders Only [facility] Cancer and Hematology [place] [address] [place] [phone] Baldomero Mittal MD Mass of upper lobe of right lung (Primary Dx) 02/04/2025 External Device Data STL ABSTRACTION Provider, Abstract 02/03/2025 8:00 AM CDT Office Visit [facility] Cancer and Hematology [place] [address] [place] [phone] Baldomero Mittal MD Mass of upper lobe of right lung (Primary Dx) 01/31/2025 Telephone [facility] Cancer and Hematology [place] [address] [place] [phone] Baldomero Mittal MD establishing care 01/27/2025 Results Follow-Up [facility] Pulmonology [address] [place] [address] Ariana Mckeon MD PATHOLOGY 01/23/2025 8:47 AM CDT Anesthesia Event [facility] Endoscopy [address] [place] [address] Justus Gomez MD 01/23/2025 8:46 AM CDT - 01/23/2025 9:51 AM CDT Surgery [facility] Endoscopy [address] [place] [address] Ariana Mckeon MD BRONCHOSCOPY 01/21/2025 External Device Data STL ABSTRACTION Provider, Abstract 01/21/2025 External Device Data STL ABSTRACTION Provider, Abstract 01/21/2025 External Device Data STL ABSTRACTION Provider, Abstract 01/19/2025 7:20 PM CDT - 01/31/2025 11:00 AM CDT Hospital Encounter [facility] 3A Surgical [address] 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 Gender Identity Not on file Sexual Orientation [...] Description 03/19/2025 10:00 AM CDT Office Visit [facility] Neurosurgery [address] [place] [address] Zina Jack FNP [address] [place] [address] Health Maintenance Due Date Last [...] (#1) 2025 Medical Devices Implanted Type Area Precision Instrument And Tool Maker Device Identifier Shelf Expiration Date Model / Serial / Lot Plate Plate Right: Leg Description:pt reports [place] metal plate in his Right upper [...] W SPEECH Routine 01/25/2025 11:41 AM CDT CHISELER HEAD EVALUATION Routine 01/25/2025 10:11 AM CDT CHISELER HEAD EVALUATE AND TREAT Routine 6:35 AM CDT [...] CDT PATHOLOGY Pathology 01/23/2025 9:10 AM CDT [place] ANES INSERT ENDOTRACHEAL AIRWAY Routine 01/23/2025 8:58 [...] of8 resultswithin the time period is included. Pathologist [facility] WBC 11.5(H) 4.8 - 10.8 K/uL 01/30/2025 8:43 AM CDT [facility] RBC 4.19(L) 4.60 - 6.20 M/uL 01/30/2025 8:43 AM CDT [facility] HEMOGLOBIN 12.3(L) 14.0 - 18.0 g/dL 01/30/2025 8:43 AM CDT [facility] HEMATOCRIT 39.2(L) 41.0 - 53.0 % 01/30/2025 8:43 AM CDT [facility] MCV 93.6 84.0 - 103.0 fL 01/30/2025 8:43 AM CDT [facility] MCH 29.4 27.0 - 34.0 pg 01/30/2025 8:43 AM CDT [facility] MCHC 31.4 30.0 - 35.0 g/dL 01/30/2025 8:43 AM CDT [facility] PLATELETS 407 140 - 440 K/uL 01/30/2025 8:43 AM [facility] MPV 10.3 8.9 - 12.8 fL 01/30/2025 8:43 AM [facility] RDW 13.0 11.0 - 14.5 % 01/30/2025 8:43 AM [facility] RDW-STDEV 45.0 37.0 - 54.0 fL 01/30/2025 8:43 AM [facility] NEUTROPHILS 78(H) 42 - 75 % 01/30/2025 8:43 AM [facility] LYMPHOCYTES 11(L) 24 - 44 % 01/30/2025 8:43 AM [facility] MONOCYTES 8 2 - 10 % 01/30/2025 8:43 AM [facility] EOSINOPHILS 2 0 - 7 % 01/30/2025 8:43 AM [facility] BASOPHILS 0 0 - 1 % 01/30/2025 8:43 AM [facility] IMMATURE GRANULOCYTES 1 0 - 2 % 01/30/2025 8:43 AM [facility] NEUTROPHIL ABSOLUTE 8.98(H) 2.00 - 8.00 K/uL 01/30/2025 8:43 AM [facility] LYMPHOCYTE ABSOLUTE 1.32 1.20 - 4.00 K/uL 01/30/2025 8:43 AM [facility] MONOCYTE ABSOLUTE 0.90(H) 0.10 - 0.60 K/uL 01/30/2025 8:43 AM [facility] EOSINOPHIL ABSOLUTE 0.21 0.00 - 0.70 K/uL 01/30/2025 8:43 AM [facility] BASOPHILS ABSOLUTE 0.05 0.00 - 0.20 K/uL 01/30/2025 8:43 AM [facility] IMMATURE GRANULOCYTES ABSOLUTE 0.08 0.00 - 0.10 K/uL 01/30/2025 8:43 AM [facility] SMEAR REVIEWED: NA - Not Applicable 01/30/2025 8:43 AM CDT [facility] Blood Venipuncture / Unknown 01/30/2025 8:12 AM CDT 01/30/2025 8:36 AM CDT us Bladimir Flowers PA-C HEMATOLOGY ORDERABLES Final Resu lt [facility] CLIA # [id number] [facility] [address] [place] [address] * (ABNORMAL) BASIC METABOLIC PANEL (01/30/2025 8:12 AM CDT) Only the most recent of3 resultswithin the time period is included. SODIUM 136 136 - 145 mmol/L 01/30/2025 9:14 AM [facility] POTASSIUM 4.7 3.5 - 5.1 mmol/L 01/30/2025 9:14 AM [facility] CHLORIDE 96(L) 98 - 107 mmol/L 01/30/2025 9:14 AM [facility] CO2 35(H) 22 - 29 mmol/L 01/30/2025 9:14 AM [facility] CALCIUM 11.4(H) 8.8 - 10.2 mg/dL 01/30/2025 9:14 AM [facility] BUN 15 8 - 23 mg/dL 01/30/2025 9:14 AM [facility] CREATININE 0.57(L) 0.67 - 1.17 mg/dL 01/30/2025 9:14 AM [facility] Comment:The GFR result is no t clinically significant on patients <18 or >70 years of age. GLUCOSE 80 74 - 99 mg/dL 01/30/2025 9:14 AM [facility] GFR >60 mL/min/1. 73 sq meter 01/30/2025 9:14 AM [facility] Comment:eGFR calculated with 2020 CKD-EPI equation. Vegetarian diet, extremely high or low muscle mass, and may affect results. Cystatin C with Glomerular Filtration Rate is a suitable alternative for these patients. ANION GAP 5(L) 9 - 20 mmol/L 01/30/2025 9:14 AM CDT [facility] Blood Venipuncture / Unknown 01/30/2025 8:12 AM CDT 01/30/2025 8:36 AM CDT us Bladimir Flowers PA-C CHEMISTRY ORDERABLES Final Resul t [facility] CLIA # [id number] [address] [place] [address] * MRI BRAIN W WO CONTRAST (01/29/2025 [...] medial cerebellum consistent with recent microembolic or chlorination operator ischemic insults. There is no large territorial infarct, mass or hemorrhage. No pathologic enhancement or enhancing lesions. 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 Major intracranial arterial flow voids are preserved. Orbits and paranasal sinuses unremarkable. Mild bilateral mastoid inflammatory change. IMPRESSION: Tiny recent ischemic insults in the left cerebellum. Otherwise no acute pathology. No evidence of FLOATING LABOR GANG SUPERVISOR metastatic disease. Mild global volume loss and [...] medial cerebellum consistent with recent microembolic or chlorination operator ischemic insults. There is no large territorial infarct, mass or hemorrhage. No pathologic enhancement or enhancing lesions. 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 Major intracranial arterial flow voids are preserved. Orbits and paranasal sinuses unremarkable. Mild bilateral mastoid inflammatory change. IMPRESSION: Tiny recent ischemic insults in the left cerebellum. Otherwise no acute pathology. No evidence of FLOATING LABOR GANG SUPERVISOR metastatic disease. Mild global volume loss and low-grade leukoaraiosis underlying. Gracie Barahona NP MR ORDERABLES Final Result * (ABNORMAL) VITAMIN B12 AND FOLATE (01/28/2025 4:02 AM CDT) VITAMIN B12 1,509(H) 211 - 946 pg/mL 01/28/2025 5:37 AM CDT [facility] FOLATE, SERUM 5.3 3.1 - 17.5 ng/mL 01/28/2025 5:37 AM CDT [facility] Blood Venipuncture / Unknown 01/28/2025 4:02 AM CDT 01/28/2025 4:47 AM CDT Gracie Barahona SALES OFFICE ASSISTANT CHEMISTRY ORDERABLES Final Res ult Performing Organization Address [facility] Co de Phone Number [facility] CLIA # [id number] [address] [address] * (ABNORMAL) IRON, TIBC, AND PERCENT SATURATION (01/28/2025 4:02 AM CDT) IRON 28(L) 59 - 158 ug/dL 01/28/2025 5:33 AM CDT [facility] TIBC 205(L) 250 - 450 ug/dL 01/28/2025 5:33 AM CDT [facility] IRON % SATURATION 14(L) 15 - 60 % 01/28/2025 5:33 AM CDT [facility] Blood Venipuncture / Unknown 01/28/2025 4:02 AM CDT 01/28/2025 4:47 AM CDT Gracie Barahona NP CHEMISTRY ORDERABLES Final Res ult Performing Organization Address [facility]/ZIP Co de Phone Number [facility] CLIA # [id number] [address] [address] * RETICULOCYTES (01/28/2025 4:02 AM CDT) RETICULOCYTES 1.9 0.9 - 2.2 % 01/28/2025 4:57 AM CDT [facility] IMMATURE RETIC FRACTION 13.8 4.3 - 16.9 % 01/28/2025 4:57 AM CDT [facility] RETICULOCYTE, ABSOLUTE 0.0700 0.0260 - 0.0950 10e6/uL 01/28/2025 4:57 AM CDT [facility] RETICULOCYTE HEMOGLOBIN CONTENT 34.2 28.6 - 37.4 pg 01/28/2025 4:57 AM CDT [facility] Blood Venipuncture / Unknown 01/28/2025 4:02 AM CDT 01/28/2025 4:47 AM CDT Gracie Barahona NP HEMATOLOGY ORDERABLES Final Re sult Performing Organization Address [facility] Co de Phone Number [facility] CLIA # [id number] [facility] [address] * (ABNORMAL) FERRITIN (01/28/2025 4:02 AM CDT) FERRITIN 902.6(H) 30.0 - 400.0 ng/mL 01/28/2025 5:33 AM CDT [facility] Blood Venipuncture / Unknown 01/28/2025 4:02 AM CDT 01/28/2025 4:47 AM CDT Gracie Barahona NP CHEMISTRY ORDERABLES Final Res ult Performing Organization Address [facility]/ZIP Co de Phone Number [facility] CLIA # [id number] [address] [address] * PHOSPHORUS (01/27/2025 6:00 AM CDT) Only the most recent of5 resultswithin the time period is included. PHOSPHORUS 2.7 2.5 - 4.5 mg/dL 01/27/2025 7:16 AM CDT [facility] Blood Venipuncture / Unknown 01/27/2025 6:00 AM CDT 01/27/2025 6:13 AM CDT Perez HADDAD CHEMISTRY ORDERABLES Final Resul t Performing Organization Address [facility] de Phone Number [facility] CLIA # [id number] [address] [place] [id number] * MAGNESIUM LEVEL (01/27/2025 6:00 AM CDT) Only the most recent of5 resultswithin the time period is included. MAGNESIUM 1.9 1.6 - 2.4 mg/dL 01/27/2025 7:16 AM CDT [facility] Blood Venipuncture / Unknown 01/27/2025 6:00 AM CDT 01/27/2025 6:13 AM CDT Perez HADDAD CHEMISTRY ORDERABLES Final Resul t Performing Organization Address [facility] de Phone Number [facility] CLIA # [id number] [address] [place] [id number] * (ABNORMAL) COMPREHENSIVE METABOLIC PANEL (01/27/2025 6:00 AM CDT) Only the most recent of5 resultswithin the time period is included. SODIUM 138 136 - 145 mmol/L 01/27/2025 7:16 AM CDT [facility] POTASSIUM 4.6 3.5 - 5.1 mmol/L 01/27/2025 7:16 AM CDT [facility] CHLORIDE 97(L) 98 - 107 mmol/L 01/27/2025 7:16 AM CDT [facility] CO2 32(H) 22 - 29 mmol/L 01/27/2025 7:16 AM [facility] CALCIUM 11.9(H) 8.8 - 10.2 mg/dL 01/27/2025 7:16 AM [facility] BUN 21 8 - 23 mg/dL 01/27/2025 7:16 AM [facility] CREATININE 0.66(L) 0.67 - 1.17 mg/dL 01/27/2025 7:16 AM [facility] Comment:The GFR result is no t clinically significant on patients <18 or >70 years of age. GLUCOSE 76 74 - 99 mg/dL 01/27/2025 7:16 AM [facility] TOTAL PROTEIN 6.4 6.4 - 8.3 g/dL 01/27/2025 7:16 AM [facility] ALBUMIN 2.9(L) 3.5 - 5.2 g/dL 01/27/2025 7:16 AM [facility] BILIRUBIN TOTAL 0.8 0.0 - 1.0 mg/dL 01/27/2025 7:16 AM [facility] ALKALINE PHOSPHATASE 119 40 - 129 U/L 01/27/2025 7:16 AM [facility] AST 26 10 - 50 U/L 01/27/2025 7:16 AM [facility] ALT 28 <=50 U/L 01/27/2025 7:16 AM [facility] GFR >60 mL/min/1. 73 sq meter 01/27/2025 7:16 AM [facility] Comment:eGFR calculated with 2020 CKD-EPI equation. Vegetarian diet, extremely high or low muscle mass, and may affect results. Cystatin C with Glomerular Filtration Rate is a suitable alternative for these patients. ANION GAP 9 9 - 20 mmol/L 01/27/2025 7:16 AM [facility] Blood Venipuncture / Unknown 01/27/2025 6:00 AM CDT 01/27/2025 6:13 AM T Perez HADDAD CHEMISTRY ORDERABLES Final Resul t [facility] # [id number] [address] [place] [address] [facility] [place] [address] * XR VIDEO SWALLOW W SPEECH (01/25/2025 [...] Mckeon MD - 01/23/2025 9:44 AM CDT [facility] Pulmonology Patient Name: Perfecto Hendrix Procedure Date: [...] see rest of details from a separate [facility] note. Estimated Blood Loss: Estimated blood loss [...] see rest of details from a separate [facility] note. Impression: - Right upper lobe mass - Endobronchial ultrasound was performed. - A transbronchial needle aspiration was performed. - An endobronchial biopsy was performed. Ariana Carpio MD 01/23/2025 9:44:15 AM This report has been signed electronically. Number of Addenda: 0 Note Initiated On: 01/23/2025 8:47 AM Scope In: 9:01:51 AM Scope Out: 9:33:[address] [place] [address], [address], [place] Ariana Carpio MD PROCEDURE/REBECCA R SURGICAL ORDERABLES Final Result * PATHOLOGY (01/23/2025 9:10 AM CDT) CASE REPORT Surgical Pathology Report Case: [id number] Authorizing Provider: Miriam Mckeonvia Collected: 01/23/2025 09:10 AM MD Ana Maria Ordering Location: [facility] Received: 01/23/2025 11:11 AM Endoscopy Pathologist: Chavez Garg MD Specimens: A) - Lymph node, station 4R, mass B) - Lung, right upper lobe, mass 8:44 AM CDT [facility] FINAL DIAGNOSIS A. 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 Lung, right upper lobe mass, endobronchial biopsy - Scant fragments of poorly differentiated squamous cell carcinoma with extensive necrosis REV:PRICE ACCURACY SUPERVISOR Chavez Garg MD [id number] 8:44 AM T [facility] at 0844 CDT GROSS DESCRIPTION A. Received in a container of formalin labeled Hall -lymph node, FNA station 4R/mass is an aggregate of soft tissue, 2.5 x 1 x 0 0.3 x 0.1 cm. The specimen is submitted entirely in A1. B. Received in a container of formalin labeled Hall -lung, RUL mass EB BX is an aggregate of soft tissue, 0.4 x 0.3 x 0.1 cm. The specimen is submitted entirely in B1. Jenny Fields 5 8:44 AM CDT [facility] MICROSCOPIC DESCRIPTION Immunohistochemical stains for antibodies to AE1/AE3, CK7, CK20, p40, and TTF-1 are performed on A1 the tumor cells are positive for AE1/AE3, CK7 (subset), and p40, and are negative for CK20 and TTF-1. 5 8:44 AM T [facility] OPERATIVE PROCEDURE 1: BRONCHOSCOPY 2: BRONCHOSCOPY WITH EBUS INCLUDING FLUOROSCOPIC GUIDANCE 5 8:44 AM T [facility] COMMENT The Dragon voice-activated dictation system may have been used [...] determined by the Diagnostic Immunohistochemistry Laboratory of [facility] in compliance with CLIA'88 regulations. Some of these tests rely on the use of analyte specific reagents and are subject to specific labeling requirements by the FDA. All controls show appropriate reactivity. This testing was developed by the Diagnostic Immunohistochemistry Laboratory of [facility]. It has not been cleared or approved by the FDA. The FDA has determined that such clearance or approval is not necessary. 8:44 AM CDT [facility] Tissue ENTIRE LYMPH NODE / Unknown Collection / Unknown 01/23/2025 9:10 AM CDT 01/23/2025 11:11 AM CDT Comment:Verified by TB/JK No primary care provider on file. Tissue specimen (specimen) SPECIMEN FROM LUNG / Unknown 01/23/2025 9:30 AM CDT 01/23/2025 11:11 AM CDT Comment:Verified by TB/JK No primary care provider on file. Ariana Carpio MD PATHOLOGY/CYTO LOGY ORDERABLES Final Result [id number] [address] [place] [address] * [place] ANES INSERT ENDOTRACHEAL AIRWAY (01/23/2025 8:58 AM CDT) Narrative Fani Goss CRNA - 01/23/2025 8:58 AM CDT Fani Goss CRNA 01/23/2025 9:08 AM Airway Date/Time: 01/23/2025 8:58 AM Location: OR Plan: routine intubation Patient Identity Confirmed by: Verbally with patient and armband Airway: not difficult Staffing Performed: BAGGAGE PORTER/CAA Authorized by: Justus Gomez MD Performed by: Fani Goss CRNA Product Trainer: Justus Gomez MD Indications and Patient Condition: [...] thoracic vertebra, unspecified fracture morphology, initial encounter ([facility]). Comparison: January 19. Procedure Note Marty De León MD - 01/22/2025 Exam: XR THORACOLUMBAR SPINE 1 VW Date/Time of Exam: 01/22/2025 2:27 PM Reason For Exam: Fracture. Diagnosis: Blunt trauma to chest, initial encounter; Lung mass; Closed fracture of multiple ribs of right side, initial encounter; Hydropneumothorax; Closed fracture of twelfth thoracic vertebra, unspecified fracture morphology, initial encounter ([facility]). Comparison: January 19. IMPRESSION: Mild anterolisthesis of L4-5. He will body heights appear grossly maintained. Vertebral body fractures better seen on prior CT. Zina Cox Jack MOSAIC TECHNICIAN DIAGNOSTIC IMAGING ORDERA BLES Final Result * (ABNORMAL) POC GLUCOSE (01/20/2025 6:57 PM CDT) Only the most recent of4 resultswithin the time period is included. GLUCOSE POC 115(H) 74 - 99 mg/dL 01/20/2025 6:57 PM CDT [facility] SPECIMEN SOURCE, GLUCOSE POC Capillary 01/20/2025 6:57 PM CDT [facility] Blood, whole 01/20/2025 6:57 PM CDT 01/21/2025 9:41 AM CDT Andrew Lam DO POINT OF CARE TESTING Final Resu lt [facility] CLIA # [id number] [address] [facility] [place] [address] * ECHO COMPLETE - CONTRAST AND STRAIN IF INDICATED (01/20/2025 1:13 PM CDT) EJECTION FRACTION 65 INTERFACE SYSTEM 01/20/2025 12:1 9 PM CDT Narrative INTERFACE SYSTEM - 01/20/2025 5:57 PM CDT [facility] Cardiovascular Services Echocardiography Laboratory [address] [place] [address] Transthoracic Echocardiography Patient: Perfecto Hendrix Study ID: ECHO COMPLETE - L Gender: M : 1950 Age: 74 Room: [facility] Study 01/20/2025 Pt Inpatient Date: Status: Study 12:19:12 PM CSN #: [id number] Time: Ordering:Andrew Lam (cox south) Bridge Mechanic: Lasha Martinez [facility] Barrel Painter:Dilia Pradhan Indications and History: murmur, trauma. Summary [...] (H) daphne values outside specified reference range. [facility] Echo Labs are accredited with the Intersocietal Accreditation Commission - Echocardiography. Prepared and Electronically Authenticated Franklin Trimble Confirmed 01/20/2025 17:57 Procedure Note Franklin Trimble MD - 01/20/2025 [facility] Cardiovascular Services Echocardiography Laboratory [address] [place] [address] Transthoracic Echocardiography Patient: Perfecto Hendrix Study ID: ECHO COMPLETE- L Gender: M : 1950 Age: 74 Room: [facility] Study 01/20/2025 Pt Inpatient Date: Status: Study 12:19:12 PM [facility] #: [id number] Time: Ordering:Andrew Lam (cox [place]) Bridge Mechanic: Lasha Martinez [facility] Barrel Painter:Titaaleshia Dilia Indications and History: murmur, trauma. Summary and [...] (H) daphne values outside specified reference range. [facility] Echo Labs are accredited with the[facility] Accreditation Commission - Echocardiography. Prepared and Electronically Authenticated Franklin Trimble Confirmed 01/20/2025 17:57 us Andrew Beam DO US ORDERABLES Final Result Performing Organization Address City/State/[facility] Co de [...] thoracic vertebra, unspecified fracture morphology, initial encounter ([facility]). Findings: Comparison is made to the chest x-ray from [facility] on 01/19/2025 at 1339. There is a [...] thoracic vertebra, unspecified fracture morphology, initial encounter ([facility]). Findings: Comparison is made to the chest x-ray from [facility] on 01/19/2025 at 1339. There is a [...] INTERFACE SYSTEM - 01/20/2025 6:40 AM CDT [address] [address] Test Date: 2025-01-19 Pat Name: [place] UNKNOWN Department: 11 Room: 08 18 Gender: Male Motor Vehicle License Clerk: [email or web address] : Requested By: Order Number: [id number] Reading MD: Mckenzie Harrington Measurements Intervals [place] Rate: 91 P: 68 NV: 148 QRS: 71 QRSD: 138 T: 51 QT: 394 QTc: 484 Interpretive Statements Normal sinus rhythm Nonspecific intraventricular block Abnormal ECG Electronically Signed On 01-20-2025 6:40:32 CDT by Mckenzie Harringtno Procedure Note Provider, Historical - 01/20/2025 [address] [place] [address] Test Date: 2025-01-19 Pat Name: [place] UNKNOWN Department: 11 Room: 02 02 Gender: Male Motor Vehicle License Clerk: [email or web address] : Requested By: Order Number: [id number] Reading MD: Mckenzie Harrington Measurements Intervals [place] Rate: 91 P: 68 NV: 148 QRS: 71 QRSD: 138 T: 51 QT: 394 QTc: 484 Interpretive Statements Normal sinus rhythm Nonspecific intraventricular block Abnormal ECG Electronically Signed On 01-20-2025 6:40:32 CDT by Mckenzie Harrington Andrew Beam DO ECG ORDERABLES Final Result Performing Organization Address City/[facility] de Phone Number INTERFACE SYSTEM Refer to clinic/hospital department * OSMOLALITY (01/19/2025 9:15 PM CDT) OSMOLALITY 291 275 - 295 mOsm/kg 01/19/2025 10:20 PM CDT [facility] Blood Venipuncture / Unknown 01/19/2025 9:15 PM CDT 01/19/2025 9:45 PM CDT AndrewOvelin DO CHEMISTRY ORDERABLES Final Resul t Performing Organization Address [facility] de Phone Number [facility] CLIA # [id number] [address] [facility] [place] [address] * VERIFICATION BLOOD GROUP (01/19/2025 7:28 PM CDT) ABO GROUP O 01/19/2025 7:47 PM CDT [facility] RH (D) TYPE Negative 01/19/2025 7:47 PM CDT [facility] Blood Venipuncture / Unknown 01/19/2025 7:28 PM CDT 01/19/2025 7:33 PM CDT Dez Wheat MD BLOOD BANK ORDERAB LES Final Result Performing Organization Address [facility]/ZIP Co de Phone Number [facility] CLIA#[id number] [address] [place] [address], [place] [phone] * LACTIC ACID (01/19/2025 7:26 PM CDT) LACTIC ACID 1.7 <=2.0 mmol/L 01/19/2025 7:58 PM CDT [facility] Blood Venipuncture / Unknown 01/19/2025 7:26 PM CDT 01/19/2025 7:34 PM CDT Dez Wheat MD CHEMISTRY ORDERABL ES Final Result Performing Organization Address City/[facility]/ZIP Co de Phone Number [facility] CLIA # [id number] [address] [address] * PTT (01/19/2025 7:26 PM CDT) PTT 32.4 24.8 - 37.2 seconds 01/19/2025 8:06 PM CDT [facility] Blood Venipuncture / Unknown 01/19/2025 7:26 PM CDT 01/19/2025 7:34 PM CDT Narrative [facility] [place] [facility] - 01/19/2025 8:06 PM CDT Therapeutic Range: Hi-level PE/DVT heparin protocol 80.1 - 95.0 sec Lo-level PE/DVT heparin protocol 70.1 - 85.0 sec Cardiac Heparin Protocol 70.1 - 100.0 sec us Dez Wheat MD HEMATOLOGY ORDERAB LES Final Result Performing Organization Address [facility]/ZIP Co de Phone Number [facility] CLIA # [id number] [address] [address] * (ABNORMAL) PROTIME-INR (01/19/2025 7:26 PM CDT) [facility] PROTIME 15.6(H) 12.7 - 14.9 Seconds 01/19/2025 8:06 PM CDT [facility] INR 1.2 0.8 - 1.2 01/19/2025 8:06 PM CDT [facility] Blood Venipuncture / Unknown 01/19/2025 7:26 PM CDT 01/19/2025 7:34 PM CDT Narrative [facility] [place] [place] [facility] - 01/19/2025 8:06 PM CDT Expected Values for INR: DVT/PE Goal INR 2.5; range 2.0 - 3.0 Valve Replacement Tissue Goal INR 2.5; range 2.0 - 3.0 Valve Replacement Mechanical Goal INR 3.0; range 2.5 - 3.5 POST-LA Goal INR 2.5; range 2.0 - 3.0 or Goal INR 3.0; range 2.5 - 3.5 Atrial Fibrillation Goal INR 2.5; range 2.0 - 3.0 Ischemic Stroke Goal INR 2.5; range 2.0 - 3.0 us Dez Wheat MD HEMATOLOGY ORDERAB LES Final Result [facility] CLIA # [id number] [facility] [address] * TYPE AND SCREEN (01/19/2025 7:26 PM CDT) Pathologist [facility] ABO GROUP O 01/19/2025 8:19 PM CDT [facility] RH (D) TYPE Negative 01/19/2025 8:19 PM CDT [facility] [place] ANTIBODY SCREEN Negative 01/19/2025 8:19 PM CDT [facility] [place] Blood Venipuncture / Unknown 01/19/2025 7:26 PM CDT 01/19/2025 7:33 PM CDT Dez Wheat MD BLOOD BANK ORDERAB LES Edited Result - Final Performing Organization Address [facility] Co de Phone Number [facility] [place] CLIA#[id number] [address] [place] [address], [place] [phone] * ETHANOL LEVEL (01/19/2025 7:26 PM CDT) ETHANOL <10.10 <10.10 mg/dL 01/19/2025 8:09 PM CDT [facility] ETHANOL % <0.01 <=0.01 %w/v 01/19/2025 8:09 PM CDT [facility] Blood Venipuncture / Unknown 01/19/2025 7:26 PM CDT 01/19/2025 7:34 PM CDT Dez Wheat MD CHEMISTRY ORDERABL ES Final Result Performing Organization Address [facility] Co de Phone Number [facility] [place] [place] [facility] CLIA # [id number] [address] [place] [address] from Last 3 Months Insurance MEDICAID [place] PART A [place] B Advance Directives For more information, please contact: [phone] * Full Code (Latest Code Status on File) Date Activated Date Inactivated Comments 01/23/2025 8:19 AM 01/31/2025 1:24 PM * Full Code Date Activated Date Inactivated Comments 01/19/2025 9:03 PM 01/23/2025 8:19 AM
--- NOTE | 2025-03-16 11:54 | ECG_ITS ---
[facility] Test Date: 2025-03-16 Pat Name: Perfecto Hendrix Department: Room: Gender: Male Market Analysis Director: : 1950 Requested By: Stalin Garcia Order Number: [id number] Eula MD: Luis Daniel Sauceda M.D. Measurements Intervals [place] Rate: 106 P: 72 [place]: 159 QRS: 78 QRSD: 133 T: 52 QT: 339 QTc: 452 Interpretive Statements SINUS TACHYCARDIA POSSIBLE RIGHT ATRIAL ENLARGEMENT [0.25mV P-WAVE] LEFT ATRIAL ENLARGEMENT [-0.15mV P-WAVE IN V1/V2] RIGHT BUNDLE BRANCH BLOCK [120+ ms QRS DURATION, UPRIGHT V1, 40+ ms S IN I/aVL/V4/V5/V6] Compared to ECG 02/19/2025 06:43:02 Atrial abnormality now present Electronically Signed On 03-16-2025 23:30:25 CDT by Luis Daniel Sauceda M.D. [id number]
--- NOTE | 2025-03-16 12:01 | ECG_ITS ---
[facility] Test Date: 2025-03-16 Pat Name: Pefrecto Hendrix Department: Room: Gender: Male Newsroom Intern: : 1950 Requested By: Stalin Garcia Order Number: [id number] Eula MD: Luis Daniel Sauceda M.D. Measurements Intervals [place] Rate: 101 P: 72 [place]: 156 QRS: 82 QRSD: 132 T: 65 QT: 331 QTc: 430 Interpretive Statements SINUS TACHYCARDIA POSSIBLE RIGHT ATRIAL ENLARGEMENT [0.25mV P-WAVE] POSSIBLE LEFT ATRIAL ENLARGEMENT [-0.1mV P-WAVE IN V1/V2] RIGHT BUNDLE BRANCH BLOCK [120+ ms QRS DURATION, UPRIGHT V1, 40+ ms S IN I/aVL/V4/V5/V6] Compared to ECG 02/19/2025 06:43:02 no significant change Electronically Signed On 03-16-2025 21:40:12 CDT by Luis Daniel Sauceda M.D. [email or web address] [id number]
--- NOTE | 2025-03-16 12:01 | XRR_ITS ---
PROCEDURE INFORMATION: Exam: XR Chest Exam date and time: 03/16/2025 12:10 PM Age: 74 years old Clinical indication: Pain; Chest pressure; Additional info: Chest pain TECHNIQUE: Imaging protocol: Radiologic exam of the chest. Views: 1 view. COMPARISON: CR (CHEST, ) 02/26/2025 4:21 AM FINDINGS: Lungs: There is improved aeration of the right mid to lower lung with persistent complete consolidation of the upper lobe. Left lung is clear. Pleural spaces: Unremarkable. No pleural effusion. No pneumothorax. Heart/Mediastinum: Unremarkable. No cardiomegaly. Bones/joints: Unremarkable. XR/XR chest 1V portable [id number] IMPRESSION: Improved aeration of the right lung with consolidation/collapse of the right upper lobe.
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
[2025-03-16 12:37] LABS: Hematocrit 40.7 % (37-53); Hemoglobin 12.60 g/dL (11.27-16.99); Mean Corpuscular HGB Conc 31.0 g/dL (30-55); Mean Corpuscular Hemoglobin 28.8 pg (27-33); Mean Corpuscular Volume 92.9 fl (82-101); Nucleated Red Blood Cells % 0 %; Platelet Count 386 10^3/cmm (157-399); Red Blood Count 4.38 10^6/uL (3.85-5.65); White Blood Count 11.10 10^3/uL (3.29-11.43)
[2025-03-16 12:57] LABS: Alanine Aminotransferase 7 U/L (0-41); Albumin Level 3.2 g/dL (3.5-5.2); Alkaline Phosphatase 104 U/L (40-130); Anion Gap 15.0 (5-19); Aspartate Amino Transferase 14 U/L (0-40); Blood Urea Nitrogen 23 mg/dL (8-23); Carbon Dioxide 33 mmol/L (22-29); Chloride 100 mmol/L (98-107); Globulin 3.6 g/dL (1.3-4.6); Glucose 86 mg/dL (65-115); Osmolality Calculated 299 mOsm/kg (285-295); Potassium 5.0 mmol/L (3.5-5.1); Sodium 143 mmol/L (136-145); Total Protein 6.8 g/dL (6.6-8.7)
[2025-03-16 12:59] LABS: Troponin(5th) Baseline 71 ng/L (0-15)
[2025-03-16 13:02] LABS: Calcium 14.2 mg/dL (8.5-10.5)
[2025-03-16 14:54] LABS: Troponin 5 2HR 67.57 ng/L (0-15); Troponin 5 2HR Delta -3.43 ABS# (0-10)
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
[2025-03-16] MEDS: calcitonin,salmon 200 unit/mL SDV 2mL SUBCUT (16:53)
[2025-03-16] MEDS: heparin 5,000 unit/mL INJ 1 mL 5000 UNIT SUBCUT (16:54)
[2025-03-16] MEDS: morphine 4 mg/mL SDV 1 mL IVP (17:11)
[2025-03-16] MEDS: ondansetron 2 mg/ML SDV 2 mL 4 MG IVP (17:12)
[2025-03-16] MEDS: dextrose 5%-sod chloride 0.9% 1,000 ML 100 ML IV (17:13)
--- NOTE | 2025-03-16 18:10 | ECG_ITS ---
[facility] Date: 2025-03-16 Pat Name: Perfecto Hendrix Department: Room: 267 Gender: Male Electronic Field Service Engineer: : 1950 Requested By: Stalin Garcia Order Number: [id number] Eula MD: Luis Daniel Sauceda M.D. Measurements Intervals [place] Rate: 93 P: 64 MN: 154 QRS: 59 QRSD: 138 T: 43 QT: 353 QTc: 441 Interpretive Statements SINUS RHYTHM LEFT ATRIAL ENLARGEMENT [-0.15mV P-WAVE IN V1/V2] RIGHT BUNDLE BRANCH BLOCK [120+ ms QRS DURATION, UPRIGHT V1, 40+ ms S IN I/aVL/V4/V5/V6] Compared to ECG 03/16/2025 14:00:48 Sinus tachycardia no longer present Electronically Signed On 03-16-2025 23:18:29 CDT by Luis Daniel Sauceda M.D. [email or web address]
[2025-03-16 18:19] LABS: Troponin 5 6HR 64.62 ng/L (0-15)
[2025-03-16 18:22] LABS: Troponin 5 6HR Delta -6.38 ng/L (0-12)
[2025-03-16 22:16] LABS: Calcium 12.5 mg/dL (8.5-10.5)
[2025-03-17] VITALS (7 sets, daily range): BP systolic 94–118; BP diastolic 55–68; PULSE 82–104; RESP 14–17; TEMP 36.8–37.2; O2SAT 95–99
[2025-03-17] MEDS: dextrose 5%-sod chloride 0.9% 1,000 ML 100 ML IV ×2 (01:56→12:46)
[2025-03-17] MEDS: heparin 5,000 unit/mL INJ 1 mL 5000 UNIT SUBCUT ×2 (04:04→17:34)
[2025-03-17 05:31] LABS: Anion Gap 8.3 (5-19); Blood Urea Nitrogen 20 mg/dL (8-23); Calcium 11.7 mg/dL (8.5-10.5); Carbon Dioxide 35 mmol/L (22-29); Chloride 107 mmol/L (98-107); Glucose 91 mg/dL (65-115); Osmolality Calculated 304 mOsm/kg (285-295); Potassium 4.3 mmol/L (3.5-5.1); Sodium 146 mmol/L (136-145)
[2025-03-17 05:33] LABS: Creatinine Clr Calc Pharmacy 65.0621
--- NOTE | 2025-03-17 08:12 | PC.SOCIAL ---
IMM Update Pg 2 of IMM Updated. Copy provided at bedside.
--- NOTE | 2025-03-17 12:58 | P.PN_ITS ---
Subjective 2 Subjective: Patient is more awake today he is able to answer a few questions. He speaks very softly and slowly. When asked if he is having any pain he said not much Vitals/I&O/Wt Last Vital Signs Temp 98.4 F 03/17/25 11:21 Pulse 88 03/17/25 11:21 Resp 14 03/17/25 11:21 BP 94/55 03/17/25 11:21 Pulse Ox 95 03/17/25 11:21 O2 Del Method Nasal Cannula 03/17/25 11:21 O2 Flow Rate 2 03/17/25 11:21 03/16/25 03/17/25 03/17/25 22:59 06:59 14:59 Intake Total 1100 / 1100 871.667 / 0620.060 6558 / 1120 Output Total 200 / 200 700 / 900 600 / 600 Balance 900 / 900 171.667 / 1071.667 520 / 520 Weight last 48 hrs Weight 55.934 kg Weight 50.757 kg Weight 50.746 kg Physical Exam 2 Narrative: Patient is a thin elderly cachectic pale appearing male Neuro patient is awake somewhat alert answered 1 question clearly about pain Heart is regular normal S1-S2 with loud short systolic murmur heard throughout the precordium Lungs are diminished throughout the anterior aspect of his chest Abdomen is concave soft nontender nondistended Extremities thin no edema bony prominences Urinary Catheter Management: Martínez: Cath Placed During This Visit: yes Reason for Continuing Indwelling Catheter: Other Urinary Catheter Date of Insertion: 03/16/25 Urinary Catheter Time of Insertion: 18:26 Data 03/16/25 12:29 03/17/25 03:35 A&P Assessment and plan 1. Hypercalcemia of malignancy: Patient received IV fluids. He received 1 dose of calcitonin and 1 dose of bisphosphonate. His calciums come down from 14 to 11.7. Will give a few extra doses of calcitonin to keep him more alert with plans to discharge to hospice 2. COPD (chronic obstructive pulmonary disease): 3. NSCLC of right lun. Multiple fractures of ribs of right side: 5. Tobacco dependence due to cigarettes: 6. Altered mental status: 7. Do not resuscitate discussion: 8. DNR (do not resuscitate): Plan: Case management spoke with the patient's brother. And after our conversation yesterday he is interested in hospice. He does not want to pursue aggressive measures including palliative radiation. Case management sent referral to hospice [facility]. Will ensure that patient has prescriptions for oral morphine and oral Ativan. And will give additional doses of calcitonin to decrease the calcium level to give patient and the family a few more days of coherent interaction. PDMP PDMP Reviewed: Not Reviewed Attestations 2 Medical Necessity Statement*: Patient requires a 2 midnight stay for the treatment of hypercalcemia and discharge planning for home with hospice Coding Level of Care Code Acute Code for Chg Fwd Diagnoses Hypercalcemia of malignancy E83.52 COPD (chronic obstructive pulmonary disease) J44.9 NSCLC of right lung C34.91 Multiple fractures of ribs of right side S22.41XA Tobacco dependence due to cigarettes F17.210 Altered mental status R41.82 Do not resuscitate discussion Z71.89 DNR (do not resuscitate) Z66
[2025-03-17] MEDS: morphine 10 mg/0.5 mL oral liq UD PO (17:34)
[2025-03-17] MEDS: calcitonin,salmon 200 unit/mL SDV 2mL SUBCUT (17:35)
[2025-03-17] MEDS: morphine 4 mg/mL SDV 1 mL IVP (21:07)
[2025-03-17] MEDS: ondansetron 2 mg/ML SDV 2 mL 4 MG IVP (21:08)
[2025-03-17] MEDS: atropine 1% op soln 2 mL Btl 2 DROP SUBLINGUAL (22:35)
[2025-03-18] VITALS: BP 109/67; PULSE 97; RESP 17; TEMP 37.1; O2SAT 94
[2025-03-18 03:51] LABS: Anion Gap 6.6 (5-19); Blood Urea Nitrogen 17 mg/dL (8-23); Calcium 11.0 mg/dL (8.5-10.5); Carbon Dioxide 36 mmol/L (22-29); Chloride 109 mmol/L (98-107); Creatinine Clr Calc Pharmacy 65.0621; Glucose 85 mg/dL (65-115); Osmolality Calculated 307 mOsm/kg (285-295); Potassium 3.6 mmol/L (3.5-5.1); Sodium 148 mmol/L (136-145)
[2025-03-18 04:00] VITALS: BP 95/63; PULSE 99; RESP 16; TEMP 36.8; O2SAT 98
[2025-03-18] MEDS: heparin 5,000 unit/mL INJ 1 mL 5000 UNIT SUBCUT (04:47)
[2025-03-18 06:00] VITALS: PULSE 102
[2025-03-18 07:45] VITALS: BP 99/63; PULSE 93; RESP 17; TEMP 36.7; O2SAT 98
--- NOTE | 2025-03-18 12:46 | P.DS_ITS ---
Discharge Providers Date of Admission: 03/16/25 13:55 Date of Discharge: March 18, 2025 Attending Provider at Admission: Prashant Wong DO Attending Provider at Discharge: Elaine Sarkar MD Primary Care Provider: RUBY Hurst Diagnoses at Discharge Discharge Diagnosis 1. Hypercalcemia of malignancy: 2. COPD (chronic obstructive pulmonary disease): 3. NSCLC of right lun. Multiple fractures of ribs of right side: 5. Tobacco dependence due to cigarettes: 6. Altered mental status: 7. Do not resuscitate discussion: 8. DNR (do not resuscitate): Reason for Visit Reason for Visit: SOB / chest pain Hospital Course Hospital Course Patient was initially admitted to the hospital with hypercalcemia most likely secondary to malignancy. He was given calcitonin to lower down the calcium level. Admitting physician had a discussion with family who opted for hospice at this time. Patient was not interested in pursuing aggressive measures including palliative radiation. Referral was sent to hosp[facility]. Patient was discharged on hospice. Physical Exam Narrative: Patient is a thin elderly cachectic pale appearing male Neuro patient is awake somewhat alert Heart is regular normal S1-S2 with loud systolic murmur Lungs are diminished throughout the anterior aspect of his chest Abdomen is concave soft nontender nondistended Extremities thin no edema bony prominences Urinary Catheter Management: Martínez: Cath Placed During This Visit: yes Reason for Continuing Indwelling Catheter: Other Urinary Catheter Date of Insertion: 03/16/25 Urinary Catheter Time of Insertion: 18:26 Discharge Data Studies Completed and Pending Completed Studies During Hospitalization Category Date Time Status XR chest 1V portable [id number] Stat Exams 03/16/25 12:01 Completed Pending at discharge Category Date Time Status Basic Metabolic Panel AM LABS Lab 03/19/25 04:00 Ordered Radiology Impressions Chest X-Ray 03/16/25 12:01 IMPRESSION: Improved aeration of the right lung with consolidation/collapse of the right upper lobe. Laboratory Results WBC 11.10 10^3/uL (3.29-11.43) 03/16/25 12:29 RBC 4.38 10^6/uL (3.85-5.65) 03/16/25 12:29 Hgb 12.60 g/dL (11.27-16.99) 03/16/25 12:29 Hct 40.7 % (37-53) 03/16/25 12:29 MCV 92.9 fl (82-101) 03/16/25 12: MCH 28.8 pg (27-33) 03/16/25 12: MCHC 31.0 g/dL (30-55) 03/16/25 12: RDW 16.3 % (12.1-15.1) H 03/16/25 12: Plt Count 386 10^3/cmm (157-399) 03/16/25 12: MPV 9.4 fL (7.4-10.4) 03/16/25 12: Neut % (Auto) 83.1 % 03/16/25 12: Lymph % (Auto) 8.6 % 03/16/25 12: [place] % (Auto) 7.7 % 03/16/25 12: Eos % (Auto) 0.0 % 03/16/25 12: Baso % (Auto) 0.1 % 03/16/25 12: Neut # (Auto) 9.23 10^3/uL (1.8-7.7) H 03/16/25 12: Lymph # (Auto) 1.0 10^3/uL (0.8-4.8) 03/16/25 12: [place] # (Auto) 0.9 10^3/uL (0.2-0.9) 03/16/25 12: Eos # (Auto) 0.0 10^3/uL (0.0-0.8) 03/16/25 12: Baso # (Auto) 0.0 10^3/uL (0.0-0.1) 03/16/25 12: Nucleated RBC % (auto) 0 % 03/16/25 12: Nucleated RBCs # 0.0 /100WBC 03/16/25 12: Sodium 148 mmol/L (136-145) H 03/18/25 02:03 Potassium 3.6 mmol/L (3.5-5.1) 03/18/25 02:03 Chloride 109 mmol/L (98-107) H 03/18/25 02:03 Carbon Dioxide 36 mmol/L (22-29) H 03/18/25 02:03 Anion Gap 6.6 (5-19) 03/18/25 02:03 BUN 17 mg/dL (8-23) 03/18/25 02:03 Creatinine 0.5 mg/dL (0.7-1.2) L 03/18/25 02:03 GFR Calculation Not Reportable 03/18/25 02:03 Glucose 85 mg/dL (65-115) 03/18/25 02:03 Calculated Osmolality 307 mOsm/kg (285-295) H 03/18/25 02:03 Calcium 11.0 mg/dL (8.5-10.5) H 03/18/25 02:03 Total Bilirubin 0.7 mg/dL (0.15-1.2) 03/16/25 12:29 AST 14 U/L (0-40) 03/16/25 12:29 ALT 7 U/L (0-41) 03/16/25 12:29 Alkaline Phosphatase 104 U/L (40-130) 03/16/25 12:29 Creatine Kinase 31 U/L (39-308) L 03/16/25 12:29 Troponin T Baseline 71 ng/L (0-15) H 03/16/25 12:29 Troponin T 120 Minute 67.57 ng/L (0-15) H 03/16/25 14:25 Delta Troponin T -3.43 ABS# (0-10) L 03/16/25 14:25 Troponin T Hi Sens 6Hr 64.62 ng/L (0-15) H 03/16/25 17:50 Troponin T Hi Sens 6Hr Delta -6.38 ng/L (0-12) L 03/16/25 17:50 Total Protein 6.8 g/dL (6.6-8.7) 03/16/25 12:29 Albumin 3.2 g/dL (3.5-5.2) L 03/16/25 12:29 Globulin 3.6 g/dL (1.3-4.6) 03/16/25 12:29 Vitals Last Vital Signs Temp 98.1 F 03/18/25 07:45 Pulse 93 03/18/25 07:45 Resp 17 03/18/25 07:45 BP 99/63 03/18/25 07:45 Pulse Ox 98 03/18/25 07:45 O2 Del Method Nasal Cannula 03/18/25 07:45 O2 Flow Rate 2 03/18/25 00:00 Discharge Plan Discharge Patient Disposition: Hospice - Home Condition: Fair Prescriptions: New atropine 1 % Drops 2 drp sublingual Q2H PRN (Reason: Secretions) Qty: 10 0RF Continued guaifenesin 100 mg/5 mL liquid 200 mg PO Q4H PRN (Reason: Congestion) ipratropium-albuterol 0.5 mg-3 mg(2.5 mg base)/3 mL Solution For Nebulization 3 ml INHALATION Q6H PRN (Reason: Shortness Of Breath) polyethylene glycol 3350 [Miralax] 17 gram/dose Powder 17 g PO DAILY Discontinued oxycodone 5 mg/5 mL solution 5 mg PO Q4H PRN (Reason: Pain) methocarbamol 750 mg Tablet 750 mg PO Q8H PRN (Reason: spasms ) Discharge Order = DC NOW: Discharge Order (Routine); Ordered 03/18/25 Ordered By: Elaine Sarkar Referrals: Lesia Parikh FNP-C [Primary Care Provider, Family Practice] - 4-7 days [facility] [Occupational Therapist] - 1-3 days Discharge Diet: As Directed Patient Instructions: COPD, Hospice Care, COPD Stoplight Activity Restrictions/Additional Instructions: dysphagia level 4 as directed Discharge Attestations Time Spent in Discharge Care*: less than 30 min Quality Metrics Clinical Quality Measures [ No reported AMI, CVA or VTE this stay] Coding Level of Care Code Acute Code for Chg Fwd Diagnoses Hypercalcemia of malignancy E83.52 COPD (chronic obstructive pulmonary disease) J44.9 NSCLC of right lung C34.91 Multiple fractures of ribs of right side S22.41XA Tobacco dependence due to cigarettes F17.210 Altered mental status R41.82 Do not resuscitate discussion Z71.89 DNR (do not resuscitate) Z66
[2025-03-18] MEDS: morphine 10 mg/0.5 mL oral liq UD PO (13:18)
[2025-03-18] MEDS: calcitonin,salmon 200 unit/mL SDV 2mL SUBCUT (13:18)
[2025-03-18 16:00] VITALS: BP 90/63; PULSE 72; RESP 18; TEMP 36.8; O2SAT 98
== END 2025-03-18 16:15 | disposition hospice, home (50) | DRG 641 ==
LOC: ER 15:03 → MEDSURG 15:20
PROVIDERS: Admitting Provider Internal Medicine; Emergency Provider Family Medicine; PCP Nurse Practitioner; Visit Provider Internal Medicine
DX: E83.52 Hypercalcemia (principal); C34.11 Malignant neoplasm of upper lobe, right bronchus or lung; J44.9 Chronic obstructive pulmonary disease, unspecified; F17.210 Nicotine dependence, cigarettes, uncomplicated; Z66 Do not resuscitate; R00.0 Tachycardia, unspecified; I95.9 Hypotension, unspecified; I35.0 Nonrheumatic aortic (valve) stenosis; I48.91 Unspecified atrial fibrillation; Z86.718 Personal history of other venous thrombosis and embolism; Z85.828 Personal history of other malignant neoplasm of skin; Z92.3 Personal history of irradiation
CPT/HCPCS: 36415; 51702; 71045; 80048; 80053; 82310; 82550; 84484; 85025; 93005; 96365; 96372; 99285; J0630; J1644; J2270; J2405; J3489; J7030; J7042; J9999